=== PATIENT | female | born 1960 | race Caucasian/White ===

== ENCOUNTER 2016-05-06 15:09 | Inpatient (IN) | payer OTHER ==
[~2016-05-06] VITALS: Ht 157.5 cm; Wt 75.3 kg
--- NOTE | 2016-05-06 17:45 | NUR ---
Arrived on Unit Patient was a transfer from [facility], arrived via EMS is fair condition. Patient to start chemo tomorrow. Admit completed except medication reconciliation. Daughter has patient's med rec. A&Ox3. Patient reported 9/10 back/buttock pain. Patient has small blister like spots on buttocks. Turning patient from [id number]. Wound consult sent. Bruises on both arms from IV starts. Patient came to the floor with a double lumen PICC in right arm. Patient has open area under the stomach. Bilateral lower extremities pitting edema. Sudarshan Graves team at to notify hospitalist patient has arrived. Awaiting response. Call light and tray table within reach. Will continue to monitor patient hourly.
[2016-05-06 18:06] VITALS: BP 116/76; PULSE 114; RESP 20
[2016-05-06] MEDS ORDERED: Polyethylene Glycol (PEG) 17 Gm Powder PO PRN (22:00)
[2016-05-06 22:57] VITALS: BP 127/83; PULSE 109; RESP 18
[2016-05-06] MEDS: Ondansetron 2 mg/mL 2 mL Inj IVPUSH PRN (23:10)
[2016-05-06] MEDS: oxyCODONE-Acetamin 5-325 mg Tablet PO PRN (23:10)
[2016-05-07] MEDS: Insulin Human REGular 300 Unit/3 mL Inj SUBQ SCH ×4 (02:30→20:30)
--- NOTE | 2016-05-07 02:51 | PCM.HPMED ---
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 Hartmann following. She was admitted to [facility] on 05/02/2016 for hyperglycemia, possible pneumonia, acute exacerbation of CHF, and generalized weakness. Patient currently states that she is tired of being tired. She wants to get well and get home. She is having pain in her bottom and back. She currently has a headache that she rates at 5 out of 10, these occur occasionally for her. She is having consistent shortness of breath and central chest heaviness for a couple of days. She is feeling nauseous in reports vomiting daily. She also has back pain and pain in her tailbone. She also complains of being generally weak. Review of Systems: A comprehensive review of systems was conducted with the patient and found to be negative except as above in the History of Present Illness. Allergies Coded Allergies: No Known Allergies (Unverified Allergy, 02/19/11) Uncoded Allergies: Tape (Adverse Reaction, Intermediate, redness, maceration, 02/19/11) Home Medications Humulin 70/30 15 units subcutaneously daily with p.m. meal Humulin 70/30 30 units subcutaneously daily with breakfast Clotrimazole 10 mg troches 5 times daily for thrush Tylenol 1000 mg by mouth 3 times daily Metoprolol tartrate 50 mg by mouth twice a day Ferrous sulfate 325 mg by mouth daily Protonix 40 mg by mouth twice a day Plavix 75 mg by mouth daily Docusate sodium 100 mg by mouth when necessary constipation Atorvastatin 10 mg by mouth at bedtime Furosemide 40 mg by mouth daily Lisinopril 5 mg by mouth daily PMH 1. Small cell carcinoma of right lung 2. Ischemic cardiomyopathy 3. Coronary artery disease 4. Diabetes mellitus type II uncontrolled 5. Emphysema 6. History of MRSA infection in right leg 7. Peptic ulcer disease 8. Anemia 9. Pulmonary fibrosis 10. Metastatic disease to the liver 11. Atrial fibrillation 12. Congestive heart failure Surgical History 1. Appendectomy 2. CABG 3. Right lower extremity arterial stent 4. Small bowel obstruction with surgical intervention Family History Father with diabetes mellitus and passed at age 63 Mother with thyroid cancer past due to motor vehicle accident when patient was 10 years old. Social History Hx Alcohol Use: Yes (quit years ago) Hx Substance Use: No Hx Tobacco Use: Yes Smoking Status: Former Smoker (89-pulv-stym history) Years of Smokin Living Arrangement: with Family (daughter Elsa, son-in-law, and grandson at the [facility] due to patient's inability to climb stairs) Exam Vital Signs Vital Sign - Last Date Time Temp Pulse Resp B/P Pulse Ox O2 Delivery O2 Flow Rate FiO2 05/06/16 18:06 36.9 114 20 116/76 Nasal Cannula 2.00 96 Exam General: Sleepy, no acute distress, well-developed, well-nourished, appropriately interactive HEENT: Normocephalic, atraumatic. External ears without defect. Pupils equal, round, and reactive to light and accommodation. Anicteric sclerae, moist conjunctivae, and no lid lag. Tongue with white exudate. Oropharynx free of erythema and cobble stoning with moist mucosa. Neck: Supple with full range of motion. No jugular venous distension. No lymphadenopathy or thyromegaly. Cardiovascular: Regular rate and rhythm with no murmurs, rubs, or gallops appreciated Pulmonary: Mildly decreased breath sounds in the right upper lung field, otherwise clear to auscultation bilaterally with no crackles, wheezes, or rhonchi. Normal respiratory effort with no use of accessory muscles. Abdomen: Vertical midline scar with concavity. Mild irritation of skin on the inferior portion of that in folding area. Bowel tones present. Soft, nontender, nondistended. Extremities: Bilateral 2+ pitting edema in lower extremities. No clubbing, cyanosis, or lymphadenopathy appreciated. Skin: Multiple small ulcerations within superior portion of the intergluteal fold. Normal temperature, turgor, and texture; no rash, or subcutaneous nodules appreciated. Neurological: Cranial nerves grossly intact. Normal muscle tone, and bulk. Psychiatric: Normal mood and affect. Alert and oriented to person, place, and time. Lab and Diagnostics X-Rays, CTs and MRIs PROCEDURE: PE STUDY (CTA CHEST) INDICATIONS: 55 year-old female with metastatic small cell lung carcinoma, with hypoxia and shortness of breath. COMPARISON: [facility], CT, THORAX WITH CONTRAST, 04/15/2016, 9:49. FINDINGS: Image quality: Excellent. Pulmonary arteries: Pulmonary arteries are normal in size, and demonstrate no intraluminal filling defects to suggest central pulmonary embolism. Lungs and pleura: 4.5 x 4.3 cm medial right upper lobe mass is again noted, enveloping the right upper lobe pulmonary artery with mild extrinsic narrowing. Mass also causes greater than 85% extrinsic narrowing of the superior vena cava. Small dependent right pleural effusion is now present, along with right lower lobe compressive atelectasis. No pneumothorax. Central and peripheral airways are patent. Mediastinum: Heart size is normal, without pericardial effusion. Patient is status post coronary artery bypass grafting. Bulky precarinal adenopathy is unchanged. Thoracic aorta is normal in caliber and enhancement. Esophagus is normal in caliber, without hiatal hernia. Bones and chest wall: No suspicious bony lesions. Ribs and thoracic spine appear intact throughout. Thyroid gland is normal in size. No axillary or supraclavicular adenopathy. Abdomen: Visualized upper abdominal solid organs appear normal in the early arterial phase of enhancement. IMPRESSION: 1. No evidence for central pulmonary embolism. 2. Medial right upper lobe 4.5 cm mass again noted, with extrinsic mass effect on the superior vena cava and right upper lobe pulmonary artery. No current findings of faby superior vena cava syndrome. 3. Interval development of small basal right pleural effusion, as well as patchy right lower lobe compressive atelectasis. 4. Bulky precarinal mediastinal adenopathy as before. Dictated by: Bennie Hernandez M.D. on 05/02/2016 at 20:57 PROCEDURE: CHEST 1 VIEW IMPRESSION: Bulky right perihilar mass lesion as before, without acute cardiopulmonary disease. Dictated by: Bennie Hernandez M.D. on 05/02/2016 at 19:35 PROCEDURE: ABDOMEN WITH AND WITHOUT CONTR FINDINGS: Image quality: Multiple sequences are degraded by patient respiratory motion. Lung bases: There is trace basal right pleural effusion. Heart size is normal, status post median sternotomy. Solid organs: There is diffuse hepatomegaly, with innumerable hypoenhancing hepatic lesions in the right and left hepatic lobes. Gallbladder contains no gallstones or biliary sludge. Biliary system is non dilated. Pancreas is normal in morphology. No adrenal nodules. Both kidneys demonstrate normal size and enhancement, without hydronephrosis. Nodes and vessels: No retroperitoneal or mesenteric adenopathy by size criteria. Aorta and inferior vena cava are normal in size. Bowel and peritoneum: Unenhanced bowel loops are normal in caliber. There is trace free abdominal fluid. Bones and soft tissues: No ventral hernias. Bone marrow is normal in overall signal. IMPRESSION: 1. Findings consistent with innumerable widespread metastases throughout the liver, with resultant hepatomegaly. 2. Trace basal right pleural effusion, possibly malignant. Dictated by: Bennie Hernandez M.D. on 05/02/2016 at 19:45 PROCEDURE: BRAIN WITH AND WITHOUT CONTRAST CSF Spaces: Basal cisterns are patent. No extra-axial fluid collections. Ventricles are normal in size and shape. Brain: No midline shift. No intracranial bleeds or masses. No abnormal intracranial enhancement. There is mild periventricular and deep white matter chronic small vessel ischemic change. The brainstem appears normal. Diffusion-weighted images demonstrate no acute ischemic insults. No chronic ischemic insults. Normal intravascular flow voids are present. Skull and face: Calvarial marrow is normal in background signal. However, several small T1 hypointense marrow space occupying lesions are noted within the clivus. Orbits appear normal. Sinuses: Sinuses and mastoids appear clear. IMPRESSION: 1. No intracranial metastases identified. 2. Findings suspicious for several small bony metastases in the clivus. As such, consider further evaluation with whole-body bone scan. 3. Mild periventricular and deep white matter chronic small vessel ischemic change. Dictated by: Bennie Hernandez M.D. 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 Hartmann following. 1. Small cell right upper lobe lung cancer, present on admission, acute - Management per Dr. Hartmann oncology - Post chemotherapy: Aloxi 0.25mg IV x 1 dose, Emend 150mg IV x 1 dose, Cisplatin 130mg x 1 dose, Etopside 175mg daily x 3 doses - Oxygen as needed, patient currently on 2 L nasal cannula - Pain control with Percocet 2. Generalized weakness and malaise, present on admission, ongoing - Likely secondary to 1 and 3. - Continue supportive care, monitor I's and O's for fluid resuscitation needs 3. Metastatic disease of the liver, present on admission, ongoing - Transaminases elevated per documentation from [facility]. - CMP with morning labs 4. Type II diabetes mellitus, present on admission, chronic, active - Patient recently started on Humulin, Januvia, fenofibrate, glimepiride, and Lantus discontinued - Humulin 70/30 15 units subcutaneously with p.m. meal, 30 units subcutaneously with breakfast, low-dose correctional scale - We will monitor blood sugars 5. Acute exacerbation of congestive heart failure, present on admission, acute on chronic - 40 mg Lasix daily 6. Thrush, present on admission, acute - Continue clotrimazole 10 mg troches 5 times daily Chronic, stable problems: Coronary artery disease - Continue metoprolol tartrate 50 mg twice a day, lisinopril 5 mg daily, Plavix 75 mg daily, and furosemide 40 mg by mouth daily Constipation - Continue docusate sodium Hyperlipidemia - Continue atorvastatin 10 mg daily GERD - Continue Protonix 40 mg by mouth twice a day Anemia Ferrous sulfate 325 mg daily When necessary antiemetic, when necessary bowel, Tylenol when necessary DVT prophylaxis with subcutaneous Lovenox. Patient is admitted under inpatient status with expected length of stay greater than 2 midnights due to severity of presenting symptoms, risk of adverse event, and complexity of treatment plan. Pain Evaluation: Adequate Pain Control GI Prophylaxis: Not indicated VTE Prophylaxis: Sub-Q Enoxaparin VTE Mechanical Devices: Intermittant Pneumatic CD Resuscitation Status: CPR: Attempt Resuscitation Attending Statement The patient was seen and examined together with Dr. Pelaez on 05/06 and I agree with the history, exam and plan as outlined in the note above. Silvana Pelaez DO May 06, 2016 20:52 Eric Yeung MD May 07, 2016 03:16
--- NOTE | 2016-05-07 03:25 | NUR ---
ACTIVITY/PAIN/NAUSEA: During assessment pt. states has nausea and pain, rated her pain at 9/10 waiting for the doctors to place pain medication orders. Later on given 1 Percocet and 600 mg of Ibuprofen. Incontinent care done. Pt. incontinent of urine. Placed on a P500 bed. Repositioned from side to side every 2 hr and more often. Medicated with Zofran 8 mg of c/o nausea. No emesis. Pt. very weak, alert and responsive. Refused food. Only taking po Sprite. Nausea resolved.
[2016-05-07 04:59] VITALS: BP_SYST 143; BP_SYST 43; BP_DIAS 88; PULSE 84; RESP 18
--- NOTE | 2016-05-07 06:31 | NUR ---
SHAWNA: Michel catheter removed at 0615 this am. Addendum: 05/07/16 at 0634 by KARINA MAS RN (NELLY) ADDENDUM: This note was written mistakenly on wrong pt. [facility] and not for room [facility] Mrs. Traore
[2016-05-07 07:02] LABS: BASOPHILS % (AUTO) 0.2 % (0-3); EOSINOPHILS % (AUTO) 0 % (0-5); MONOCYTES % (AUTO) 3.5 % (4-12); Mean Corpuscular Hemoglobin 30.9 pg (27.0-35.0); Mean Corpuscular Volume 97.1 fL (81-100); NEUTROPHILS % (AUTO) 92.5 % (40-74); Platelet Count 101 bil/L (150-400)
[2016-05-07] MEDS ORDERED: Insulin Human NPH-Reg 70-30 100 Unit/mL 3 mL Pen SUBQ SCH ×2 (08:00→17:30)
--- NOTE | 2016-05-07 08:13 | PCM.PNMED ---
Subjective Date of Service May 07, 2016 Subjective Patient is laying in bed, says she is mildly short of breath. She is admitted overnight from the [facility] as a transfer for chemo induction by Dr. Bass. The patient is transferred from [facility], where she was underwent her 4th hospitalization since the beginning of April. This hospitalization was from May 03 through May 06, at which point she was transferred over to [facility]. She was admitted on the 4th for progressive weakness and being unable to ambulate at home. She also had a glucose of 550 the day prior to admission with decreased oral intake. During the recent hospitalization she was treated for diabetes out of control, postobstructive pneumonia, exacerbation of chronic diastolic heart failure, underlying lung disease with pulmonary hypertension and pulmonary fibrosis, and stable coronary artery disease, as well as sacral decubitus ulcers. Overall her condition was very poor at the time of transfer to [facility]. Exam Vital Signs Vital Sign - Last Date Time Temp Pulse Resp B/P Pulse Ox O2 Delivery O2 Flow Rate FiO2 05/07/16 04:59 36.8 84 18 143/88 Nasal Cannula 2.00 98 Intake and Output 05/06/16 05/06/16 05/07/16 Cumulative From/Thru 15:00 23:00 07:00 05/06/16 18:10 - 05/07/16 05:51 Intake Total 200 ml 200 ml Output Total 450 ml 450 ml Balance -250 ml -250 ml Intake Oral 200 ml 200 ml IV Total 0 ml 0 ml Output Urine Total 450 ml 450 ml # Bowel Movements 0 0 Exam General: Laying in bed. Appears dishevelled HEENT: NCAT Heart: Irregular, hyperdynamic sounds Lungs: Diminished over the RLL., negative for wheezing Abdomen: Soft, mild tenderness in LLQ, normal bowel sounds Neuro: No focal deficits Psych: Negative for anxiety, affect resigned IVs and Medications Medications Reviewed: Medications were reviewed in detail Lab and Diagnostics Result Diagram: 05/07/16 0610 05/07/16 0610 X-Rays, CTs and MRIs PROCEDURE: PE STUDY (CTA CHEST) INDICATIONS: 55 year-old female with metastatic small cell lung carcinoma, with hypoxia and shortness of breath. COMPARISON: [facility], CT, THORAX WITH CONTRAST, 04/15/2016, 9:49. FINDINGS: Image quality: Excellent. Pulmonary arteries: Pulmonary arteries are normal in size, and demonstrate no intraluminal filling defects to suggest central pulmonary embolism. Lungs and pleura: 4.5 x 4.3 cm medial right upper lobe mass is again noted, enveloping the right upper lobe pulmonary artery with mild extrinsic narrowing. Mass also causes greater than 85% extrinsic narrowing of the superior vena cava. Small dependent right pleural effusion is now present, along with right lower lobe compressive atelectasis. No pneumothorax. Central and peripheral airways are patent. Mediastinum: Heart size is normal, without pericardial effusion. Patient is status post coronary artery bypass grafting. Bulky precarinal adenopathy is unchanged. Thoracic aorta is normal in caliber and enhancement. Esophagus is normal in caliber, without hiatal hernia. Bones and chest wall: No suspicious bony lesions. Ribs and thoracic spine appear intact throughout. Thyroid gland is normal in size. No axillary or supraclavicular adenopathy. Abdomen: Visualized upper abdominal solid organs appear normal in the early arterial phase of enhancement. IMPRESSION: 1. No evidence for central pulmonary embolism. 2. Medial right upper lobe 4.5 cm mass again noted, with extrinsic mass effect on the superior vena cava and right upper lobe pulmonary artery. No current findings of faby superior vena cava syndrome. 3. Interval development of small basal right pleural effusion, as well as patchy right lower lobe compressive atelectasis. 4. Bulky precarinal mediastinal adenopathy as before. Dictated by: Bennie Hernandez M.D. on 05/02/2016 at 20:57 PROCEDURE: CHEST 1 VIEW IMPRESSION: Bulky right perihilar mass lesion as before, without acute cardiopulmonary disease. Dictated by: Bennie Hernandez M.D. on 05/02/2016 at 19:35 PROCEDURE: ABDOMEN WITH AND WITHOUT CONTR FINDINGS: Image quality: Multiple sequences are degraded by patient respiratory motion. Lung bases: There is trace basal right pleural effusion. Heart size is normal, status post median sternotomy. Solid organs: There is diffuse hepatomegaly, with innumerable hypoenhancing hepatic lesions in the right and left hepatic lobes. Gallbladder contains no gallstones or biliary sludge. Biliary system is non dilated. Pancreas is normal in morphology. No adrenal nodules. Both kidneys demonstrate normal size and enhancement, without hydronephrosis. Nodes and vessels: No retroperitoneal or mesenteric adenopathy by size criteria. Aorta and inferior vena cava are normal in size. Bowel and peritoneum: Unenhanced bowel loops are normal in caliber. There is trace free abdominal fluid. Bones and soft tissues: No ventral hernias. Bone marrow is normal in overall signal. IMPRESSION: 1. Findings consistent with innumerable widespread metastases throughout the liver, with resultant hepatomegaly. 2. Trace basal right pleural effusion, possibly malignant. Dictated by: Bennie Hernandez M.D. on 05/02/2016 at 19:45 PROCEDURE: BRAIN WITH AND WITHOUT CONTRAST CSF Spaces: Basal cisterns are patent. No extra-axial fluid collections. Ventricles are normal in size and shape. Brain: No midline shift. No intracranial bleeds or masses. No abnormal intracranial enhancement. There is mild periventricular and deep white matter chronic small vessel ischemic change. The brainstem appears normal. Diffusion-weighted images demonstrate no acute ischemic insults. No chronic ischemic insults. Normal intravascular flow voids are present. Skull and face: Calvarial marrow is normal in background signal. However, several small T1 hypointense marrow space occupying lesions are noted within the clivus. Orbits appear normal. Sinuses: Sinuses and mastoids appear clear. IMPRESSION: 1. No intracranial metastases identified. 2. Findings suspicious for several small bony metastases in the clivus. As such, consider further evaluation with whole-body bone scan. 3. Mild periventricular and deep white matter chronic small vessel ischemic change. Dictated by: Bennie Hernandez M.D. 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 Hartmann following. 1. Small cell right upper lobe lung cancer, present on admission, acute - Management per Dr. Hartmann oncology - Post chemotherapy: Aloxi 0.25mg IV x 1 dose, Emend 150mg IV x 1 dose, Cisplatin 130mg x 1 dose, Etopside 175mg daily x 3 doses - Oxygen as needed, patient currently on 2 L nasal cannula - Pain control with Percocet - Requested records from the OSH and records were reviewed, it appears she was there for Hyperglycemia. No cardiac work up is available - [facility] called due to suspicion for a pneumothorax and a Left decubitus was ordered per their request. The read on that x-ray ruled out pneumothorax. 2. Generalized weakness and malaise, present on admission, ongoing - Likely secondary to 1 and 3. - Continue supportive care, monitor I's and O's for fluid resuscitation needs 3. Metastatic disease of the liver, present on admission, ongoing - Transaminases elevated per documentation from [facility]. - CMP with morning labs 4. Type II diabetes mellitus, present on admission, chronic, active -- A1C 6.2 from records in last december - Patient recently started on Humulin, Januvia, fenofibrate, glimepiride, and Lantus discontinued - Humulin 70/30 15 units subcutaneously with p.m. meal, 30 units subcutaneously with breakfast, low-dose correctional scale: Changed this to 30 U basal and moderate scale SSI - We will monitor blood sugars 5. Acute exacerbation of congestive heart failure, present on admission, acute on chronic - 40 mg Lasix daily 6. Thrush, present on admission, acute - Continue clotrimazole 10 mg troches 5 times daily 7. Hypokalemia: Potassium 20 mg PO QD due to lasix home medication Chronic, stable problems: Coronary artery disease - Continue metoprolol tartrate 50 mg twice a day, lisinopril 5 mg daily, Plavix 75 mg daily, and furosemide 40 mg by mouth daily Constipation - Continue docusate sodium Hyperlipidemia - Continue atorvastatin 10 mg daily GERD - Continue Protonix 40 mg by mouth twice a day Anemia Ferrous sulfate 325 mg daily When necessary antiemetic, when necessary bowel, Tylenol when necessary DVT prophylaxis with subcutaneous Lovenox. Patient is admitted under inpatient status with expected length of stay greater than 2 midnights due to severity of presenting symptoms, risk of adverse event, and complexity of treatment plan. GI Prophylaxis: Not indicated VTE Prophylaxis: Sub-Q Enoxaparin VTE Mechanical Devices: Intermittant Pneumatic CD Resuscitation Status: CPR: Attempt Resuscitation Susy Obrien DO May 07, 2016 08:13
[2016-05-07] MEDS: Pantoprazole 40 mg ER24 Tablet PO SCH ×2 (08:42→16:45)
[2016-05-07] MEDS: Ondansetron 2 mg/mL 2 mL Inj IVPUSH PRN ×2 (08:49→16:45)
[2016-05-07] MEDS: Clotrimazole Troche 10 mg Tablet MT SCH ×5 (09:04→23:08)
[2016-05-07] MEDS ORDERED: INSU100V7 SUBQ (09:52)
[2016-05-07] MEDS ORDERED: CLOP75TA28 PO (09:52)
[2016-05-07] MEDS ORDERED: CLOT21CR7 VAGINAL (09:52)
[2016-05-07] MEDS ORDERED: FENO145T19 PO (09:52)
[2016-05-07] MEDS ORDERED: POTA-62 PO (09:52)
[2016-05-07] MEDS ORDERED: METO25TA6 PO (09:52)
[2016-05-07] MEDS ORDERED: LEVO250T45 PO (09:52)
[2016-05-07] MEDS ORDERED: OXYC1TAB24 PO (09:52)
[2016-05-07] MEDS ORDERED: ATOR20TA PO (09:52)
[2016-05-07] MEDS ORDERED: FURO40TA4 PO (09:52)
[2016-05-07] MEDS ORDERED: NYST15PO3 TP (09:52)
[2016-05-07] MEDS ORDERED: SITA100T12 PO (09:53)
[2016-05-07] MEDS ORDERED: PANT40TA3 PO (09:53)
[2016-05-07] MEDS ORDERED: Potassium Chloride 20 mEq SR Tablet PO SCH (10:30)
[2016-05-07] MEDS ORDERED: Alteplase (Cathflo) 1 mg/mL 2 mL Inj IV PRN (10:55)
[2016-05-07] MEDS: oxyCODONE-Acetamin 5-325 mg Tablet PO PRN ×2 (11:02→16:44)
[2016-05-07] MEDS ORDERED: Sodium Chloride LOK Flush 10 mL Syringe IVFLUSH PRN ×2 (11:55)
[2016-05-07] MEDS: Alum-Mag Hydrox-Simeth 30 mL Suspension PO PRN (11:56)
[2016-05-07] MEDS ORDERED: Palonosetron 0.05 mg/mL 5 mL Inj IV ONE (12:30)
[2016-05-07] MEDS ORDERED: SODIUM CHLORIDE 0.9% IV ONE (12:30)
[2016-05-07] MEDS ORDERED: 0.9% Sodium Chloride 1,000 ML IV ONE (12:30)
[2016-05-07] MEDS ORDERED: [UNRECOGNIZED DRUG - OTHER] IV ONE (12:30)
[2016-05-07] MEDS: Dexamethasone 10 mg/mL Inj IV SCH (12:50)
[2016-05-07] MEDS ORDERED: POTASSIUM CHLORIDE IV ONE ×5 (13:00)
[2016-05-07] MEDS ORDERED: SODIUM CHLORIDE 0.9% IV SCH (13:00)
[2016-05-07] MEDS ORDERED: MAGNESIUM SULFATE IV ONE ×5 (13:00)
[2016-05-07] MEDS ORDERED: ETOPOSIDE IV SCH (13:00)
[2016-05-07] MEDS ORDERED: [UNRECOGNIZED DRUG - OTHER] IV ONE ×5 (13:00)
[2016-05-07] MEDS ORDERED: CISPLATIN IV ONE ×5 (13:00)
--- NOTE | 2016-05-07 13:48 | DRSVH ---
PROCEDURE: X-RAY CHEST ONE VIEW ([id number]) INDICATIONS: Catheter tip placement TECHNIQUE: One view of the chest was acquired. COMPARISON: [facility], CR, CHEST 1VW (PORTABLE), 08/19/2013, 21:47. [facility], CR , CHEST 1 VIEW, 05/02/2016, 19:26. FINDINGS: Surgical changes and devices: Post median sternotomy with multiple fractured sternal wires. Right PI CC present with tip projecting over the mid right subclavian. Lungs and pleura: Right pleural effusion is present and there appears to be an air-fluid level and hy dropneumothorax cannot be excluded. Large right upper lobe mass redemonstrated. Scarring within the left lung base. Mediastinum: Mediastinal contours appear normal. Heart size is normal. Bones and chest wall: No suspicious bony lesions. Overlying soft tissues appear unremarkable. IMPRESSION: 1. Right pleural effusion and apparent air fluid level suggesting a right hydropneumothorax. Recomme nd clinical correlation and left lateral decubitus chest radiograph for confirmation. 2. Large right upper lobe mass redemonstrated. 3. Right PICC projected over the level of the mid subclavian. Dictated by: Hernando SANDS Interpreted: Shannon Watkins MD on 05/07/2016 at 13:44 Transcribed by: GAVIN on 05/07/2016 at 13:48 Approved by: Shannon Watkins M.D. on 05/07/2016 at 16:53
[2016-05-07 14:21] VITALS: BP 154/75; PULSE 79; RESP 19; O2SAT 94
--- NOTE | 2016-05-07 14:32 | DRSVH ---
PROCEDURE: X-RAY LEFT DECUBITUS CHEST ([id number]) INDICATIONS: concern for pneumothorax TECHNIQUE: One view of the chest was acquired. COMPARISON: [facility], CR, XR CHEST 1VW, 05/07/2016, 11:53. FINDINGS: Surgical changes and devices: Left lateral decubitus chest radiograph demonstrating no right pneumoth orax. IMPRESSION: No right hydropneumothorax. Dictated by: Hernando Luevano RRA Interpreted: Shital Rodríguez MD on 05/07/2016 at 14:31 Transcribed by: DILAN on 05/07/2016 at 14:32 Approved by: Shital Rodríguez MD, PhD on 05/07/2016 at 17:24
--- NOTE | 2016-05-07 14:53 | NUR ---
Wound Care Pressure ulcer protocol received, pt seen at bedside with nursing. 55 yo female with cancer diagnosis, lung with metastasis. Pt is easily aroused lying in a P500 bed. Skin is assessed and she is noted to have 3 lesions in the area just superior to her anus, I do not think these are pressure related and may be in fact be due to yeast, the three lesions are 3 cm x 0.5 cm at midline and 2 others to the right of the central lesion that are approx 1.2 cm in diameter. Recommended application of fungal ointment to these areas by nursing. Frequent turning is also recommended. There is a small abrasion under the nasal cannula tubing at her right ear recommend application of calmoseptine to this area.
[2016-05-07 15:00] VITALS: BP 144/76; PULSE 74; RESP 16; O2SAT 94
--- NOTE | 2016-05-07 15:29 | NUR ---
Chemo Consent signed, two nurse check w/ Marlena Davenport RN. Blood return present. Chemo started at 1509. Oncologist aware of lab values, wishes to proceed. All premeds given. VSS prior to and 15 min into infusion.
[2016-05-07 15:30] VITALS: BP 145/75; PULSE 80; RESP 18; O2SAT 92
[2016-05-07] MEDS ORDERED: 0.9% Sodium Chloride 250 ML ONE (16:53)
--- NOTE | 2016-05-07 17:04 | NUR ---
Social Work Assessment: D&A: Reviewed chart. Pt. is a 55yr old female transferred from [facility] for chemotherapy. Pt. known to this S[employer]DER from [facility]. Pt. currently resides with daughter/Elsa(not biological) in [facility] in [place]. Elsa is gate watch at [facility] and has young son. Pt. recently began getting sick (approximately 1 month ago). Prior to being sick pt. employed at [employer] and was completely "I" in all ADL's. Pt. hospitalized last week at [facility] and it was determined that pt. has lung CA. Pt. had appointment with Dr. Hartmann last week and was planning on starting chemo as outpt. Unfortunately pt. got sicker with n/v and weakness. Pt. admitted to [facility] and then transferred to [facility] to start chemo during hospitalization. At this time d/c needs unknown. Previous d/c plan was for pt. to go to [facility] when stable for rehab. Pt.'s health plan had authorized SNF. Updated medical team in AM rounds. Dr. Hartmann managing the chemotherapy. Pt. might be excellent candidate for palliative and they are aware. P: Pending pt.'s progress with chemo treatment. If SNF needed will need to confirm with pt. that first choice is still [facility] and obtain new authorization from provider. FERNANDO Maldonado Addendum: 05/07/16 at 1714 by EJ SOLIMAN Amended: Links added.
--- NOTE | 2016-05-07 17:18 | NUR ---
Chemo Start Chemo checked by 2 nurses. Blood return present, consent signed. Oncologist aware of lab values. Per MD proceed with Chemo scheduled for today. Care continues
[2016-05-07] MEDS ORDERED: Glucose 40% Oral Gel 15 Gm Tube PO PRN (18:10)
--- NOTE | 2016-05-07 18:12 | NUR ---
Appetite Pt has refused all meals today. States she doesn't feel hungry and is nauseous majority of shift. Pt is drinking fluids and voiding.
[2016-05-07] MEDS ORDERED: Insulin GLARgine 100 Unit/mL Syringe SUBQ SCH ×2 (18:20→21:00)
--- NOTE | 2016-05-07 18:41 | HP ---
[address] [address] HISTORY AND PHYSICAL PATIENT: CARLEEN SHEIKH : 1960 MR#: [id number] ADMIT: 05/06/2016 JOB ID: [id number] DATE OF SERVICE: 05/07/2016 REASON FOR ADMISSION: This is a transfer from [facility] for the purpose of receiving systemic chemotherapy for rapidly advancing small cell lung cancer involving the right suprahilar area and mediastinum, and with extensive disease in the liver. DIAGNOSES: 1. 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 2. Progressive debilitation related to underlying comorbidities of type 2 diabetes, history of atrial fibrillation, congestive heart failure with recent non-ST elevation myocardial infarction; the patient is extremely debilitated now. 3. The patient has had multiple recent admissions as described below in the history of present illness. HISTORY OF PRESENT ILLNESS: The patient is transferred from [facility], where she was underwent her 4th hospitalization since the beginning of April. This hospitalization was from May 03 through May 06, at which point she was transferred over to [facility]. She was admitted on the 4th for progressive weakness and being unable to ambulate at home. She also had a glucose of 550 the day prior to admission with decreased oral intake. During the recent hospitalization she was treated for diabetes out of control, postobstructive pneumonia, exacerbation of chronic diastolic heart failure, underlying lung disease with pulmonary hypertension and pulmonary fibrosis, and stable coronary artery disease, as well as sacral decubitus ulcers. Overall her condition was very poor at the time of transfer to [facility]. I discussed the case with Dr. Alexandra, indicating that we are all in agreement that her recent decline is mainly due to the progression of small-cell lung cancer superimposed on underlying comorbidities which were up until recently relatively stable (see admission list below). MEDICATIONS: On transfer to [facility]: 1. Januvia or sitagliptin 100 mg daily. 2. Fenofibrate 160 mg daily. 3. Glimepiride 2 mg twice daily with meals. 4. Oxycodone/acetaminophen 5/325 q.6 h. p.r.n. back pain. 5. Insulin glargine 10 mL or Lantus 100 units/mL subcutaneously at bedtime. 6. Lisinopril 5 mg every day. 7. Furosemide 40 mg every day. 8. Atorvastatin 10 mg at bedtime. 9. Docusate 100 mg for constipation. 10. Clopidogrel 75 mg daily. 11. Pantoprazole 40 mg twice daily. 12. Ferrous sulfate 325 mg daily. 13. Metoprolol 50 mg twice daily. 14. Acetaminophen 1000 mg three times daily. 15. Clotrimazole 10 mg orally five times daily for a chante for thrush. 16. She was also initiated on insulin human isophane 100 units/mL, 30 units subcutaneously daily with breakfast, and 15 units subcutaneous every day with p.m. meal. 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 On April 09 she was hospitalized at [facility] for community-acquired pneumonia, acute on chronic CHF, diabetes, and a right hilar mass was discovered at that point in time. Workup was to be continued as an outpatient. On April 12 she was readmitted with acute bacterial community-acquired pneumonia, persistent hypokalemia, and diabetes type 2 with ischemic cardiomyopathy. On April 28 she was admitted with acute paroxysmal atrial fibrillation with RVR and acute non-ST elevation UT secondary to demand ischemia, chronic heart failure with preserved LVEF, severe hypopotassemia due to IV diuresis, and type 2 diabetes. She was seen by myself on April 30, 2016. At that point we knew that she had 3.7 x 3.77 medial right upper lobe mass with compression of the superior vena cava and large mediastinal and right hilar adenopathy. CT-guided biopsy was performed on April 15, 2016 showing a small-cell neuroendocrine carcinoma which was pankeratin or GODFREY positive, synaptophysin positive, and chromogranin positive. A brain MRI was negative for metastases on April 28, 2016. It was suspected that she had liver metastases, although on the CT of the thorax the liver appeared normal. The liver enzymes were elevated and an echo was suspicious for metastases. Ultimately a hepatic protocol MRI was performed on May 02, 2016 showing extensive liver metastases on May 02, a PE study was performed as well due to the patient's debilitation and dyspnea and found negative for PE, with the development of a small basilar right pleural effusion as well as compressive atelectasis in the right lower lobe. After careful discussion of the pros and cons, and presentation to the Tumor Board, the patient's condition was deemed to be irreversible without some form of therapy for her cancer and although her performance status was poor there was a consensus after discussion with Dr. Alexandra, Dr. Jeong of the hospitalist service, and the Tumor Board that her only chance for even palliation would be to receive systemic chemotherapy. She was transferred to [facility] for this purpose. PAST MEDICAL HISTORY: 1. Prior history of lep-xblvqvq-pichqufjf diabetes, now insulin dependent. The patient's glucose control has improved from the 400s down to the 100s. 2. At least 8 surgeries starting at age 14 for bowel obstructions originally related to an appendectomy. 3. . AB zero. 4. History of four-way bypass. The patient states she had previously had stents. 5. History of bleeding ulcer. 6. History of atrial fibrillation. 7. Cardiomyopathy. 8. Prior history of MRSA right leg related to harvest of vessels for bypass. 9. Pulmonary fibrosis. 10. Appendectomy. 11. Non-ST elevation UT recently. 12. Multiple wound care visits for right-sided foot ulcer. 13. Four-way bypass in July 2013. 14. MRSA infection related to harvest of veins. SOCIAL HISTORY: The patient lives by herself. Her 15 years ago in a motor vehicle accident. She comes with her daughter, Elsa. 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 She quit drinking 23-1/2 years ago and quit smoking three years ago with a 32 pack-year history of smoking. ALLERGIES: IODINE, BROCCOLI, GLYBURIDE, METFORMIN, POLLEN TREE IN PARTICULAR, AND REYNOLDS PEPPER. REVIEW OF SYSTEMS: Although she is very weak, she is communicative. She has had worsening chronic back pain and extreme muscle body weakness. Right now she is confined to bed. Previously, when I saw her last week, she could get around in a wheelchair, but has no ability to even help herself to the bathroom now. Head and neck: No headaches, visual changes, syncope, stroke. No oral or oropharyngeal lesions. However, she does have thrush and has an odd taste in her mouth because of this. Respiratory: No cough or dyspnea, but she is really not exercising at all to really test that. Cardiac: She has occasional pressure-like chest pain. No palpitations. GI: Appetite is extremely poor. No melena or hematochezia. : No dysuria, hematuria, or other UTIs. Skin: No rashes or pruritus. Neurological: No stroke seizure or loss of consciousness. PHYSICAL EXAMINATION: She is lying in bed, very weak, but responsive. She is able to roll onto her back or her side when asked to do so. She knows the year, is not sure of the month, and knows she is in [place]. Her vital signs show a temp of 36.8, pulse 84, respiratory rate 18, blood pressure 143/88, pulse ox 98% on 2 L although she is not using nasal O2 at this time. Her height is 157.48 cm, weight 72.4 kg, BSA 1.80 m2, BMI 29.2 kg/m2. General: She looks unwell and extremely weak, but is communicative. Head and neck: She has moderate alopecia. The patient states this has been going on for a number of years. Pupils equally round and reactive. No obvious icterus, although we do know that her bilirubin is elevated. Oral and oropharyngeal mucosa shows some mild thrush. Teeth: Partially edentulous. Neck and supraclavicular areas without adenopathy or masses. There is no facial puffiness of JVD suggestive of SVC syndrome. Chest: There are scattered inspiratory and expiratory wheezes and rhonchi bilaterally. Cardiac: Rhythm is regular, without murmur or peripheral edema. Abdomen: Soft, nontender. No masses or organomegaly. LABORATORY VALUES: The white count is 11.9 with 92.5% neutrophils, hemoglobin 10.8, hematocrit 33.9, platelets 101. BUN 27, creatinine 1.10. Sodium 142, potassium 3.3, chloride 94, CO2 of 33, glucose 103. Albumin is 2.9. Bilirubin is 3.2, AST 380, ALT 241. Alkaline phosphatase pending. ASSESSMENT AND RECOMMENDATIONS: 1. SMALL CELL LUNG CANCER, extensive stage, with liver metastases. A PET-CT scan was not performed due to blood glucose but she sufficient evidence of metastatic disease to treat her with systemic chemotherapy. Treatment with radiation therapy is not indicated at this time. Given the bulk of disease, she should be on allopurinol and IV hydration as well. The dose of chemotherapy would be cisplatin 75 mg/m2 day one and etoposide 100 mg/m2 days one, two, and three. In view of her elevated bilirubin, one could reduce the dose of etoposide; however, this is her one chance to achieve a response to therapy and I think we need to be very aggressive about going through with this without compromising her treatment. If we were to administer decreased doses and not be able to assess her response, we would not know whether she has chemotherapy sensitive disease or not and therefore I recommend we proceed forward with full doses. She will be treated with Emend (fosaprepitant) for coverage for nausea and after the 3rd day of etoposide, 24 hours later, she should receive a Neulasta skin device to protect her from severe cytopenias. She will have to be followed very closely with a followup visit with myself or Dr. Sewell next Thursday or thursday respectively on the or the . 2. Multiple other comorbidities. Dr. Heaton and Dr. Obrien have kindly agreed to take on the care regarding her diabetes and her cardiac disease, as well as her pulmonary problems, and with careful management I think we can get her through this course of chemotherapy. 3. Code status. The patient has agreed that she should be DNAR; that is no CPR or intubation, however she would like all other medical interventions including all types of nutritional intervention, antibiotics, diagnostic procedures, oxygen, and any other procedure short of CPR that would be necessary to manage her case. Will follow patient on a daily basis. 4. Chemotherapy counselling and POLST completed. MTDD
[2016-05-07 20:05] VITALS: BP 113/78; PULSE 81; RESP 16; O2SAT 96
[2016-05-07] MEDS ORDERED: Insulin GLARgine 100 Unit/mL Syringe SUBQ ONE (23:35)
--- NOTE | 2016-05-08 00:54 | PCM.PNMED ---
Subjective Date of Service May 08, 2016 Subjective Nurse called concerning patient receiving Lantus 30 units tonight. BG had been 100-110 range. Plan to decrease dose to Lantus 10 units HS. Patient may not eat as much due to chemotherapy and 10 units is a good starting point Eric Yeung MD May 08, 2016 00:54
[2016-05-08] MEDS: Insulin GLARgine 100 Unit/mL Syringe SUBQ SCH ×2 (01:28→20:40)
--- NOTE | 2016-05-08 01:52 | NUR ---
ACTIVITY/DIET: Pt. resting in bed, repositioned from side to side with 2 person, pt. has skin issues. Made no attempts to get oob. Pt. states she is too tired and has no energy to move. Offered snacks, declined. offered chicken broth, agreed to take but took only a few sips. Offered fruit Popcicles per her choice, agreed to take one. Taking a few bites of fruit roberts popcicle. on going care.
[2016-05-08] MEDS: Insulin Human REGular 300 Unit/3 mL Inj SUBQ SCH ×4 (04:37→20:30)
[2016-05-08] MEDS: oxyCODONE-Acetamin 5-325 mg Tablet PO PRN ×3 (04:42→20:41)
[2016-05-08] MEDS: Clotrimazole Troche 10 mg Tablet MT SCH ×5 (04:43→23:08)
[2016-05-08 05:00] VITALS: BP 150/84; PULSE 82; RESP 20; O2SAT 95
[2016-05-08] MEDS: Ondansetron 2 mg/mL 2 mL Inj IVPUSH PRN (05:16)
[2016-05-08] MEDS: Pantoprazole 40 mg ER24 Tablet PO SCH ×2 (06:51→16:46)
[2016-05-08 07:31] LABS: BASOPHILS % (AUTO) 0 % (0-3); EOSINOPHILS % (AUTO) 0 % (0-5); MONOCYTES % (AUTO) 2.6 % (4-12); Mean Corpuscular Hemoglobin 30.8 pg (27.0-35.0); NEUTROPHILS % (AUTO) 94.8 % (40-74); Platelet Count 95 bil/L (150-400)
[2016-05-08 08:34] VITALS: BP 147/86; PULSE 85
[2016-05-08] MEDS: LORazepam 0.5 mg Tablet PO PRN (11:02)
[2016-05-08 13:00] VITALS: BP 161/80; PULSE 74; RESP 15; O2SAT 92
[2016-05-08] MEDS ORDERED: Potassium Chloride 20 mEq SR Tablet PO ONE (13:00)
--- NOTE | 2016-05-08 13:06 | PCM.PNMED ---
Subjective Date of Service May 08, 2016 Subjective Patient is undergoing round 2 of chemo, total 3 days planned. She is too weak to walk, says R leg is weaker. She has 2L of oxygen, coughing a bit. Echo from OSH showed CAD but not CHF... Her medications for CAD are optimized. EKG ordered for afib... Just got diagnosed in Apr per Marioet. Exam Vital Signs Vital Sign - Last Date Time Temp Pulse Resp B/P Pulse Ox O2 Delivery O2 Flow Rate FiO2 05/08/16 13:00 36.1 74 15 161/80 92 Nasal Cannula 2.00 05/07/16 04:59 98 Intake and Output 05/07/16 05/07/16 05/08/16 Cumulative From/Thru 15:00 23:00 07:00 05/06/16 18:10 - 05/08/16 05:41 Intake Total 2122 ml 274 ml 2596 ml Output Total 300 ml 550 ml 1300 ml Balance 1822 ml -276 ml 1296 ml Intake Oral 0 ml 274 ml 474 ml IV Total 2122 ml 2122 ml Output Urine Total 300 ml 550 ml 1300 ml # Bowel Movements 0 0 Exam Gen.: Pale, responding well, laying in bed lateral decubitus position Neck: Negative for JVD Heart: Irregular, no audible murmurs Lungs: Patient is receiving chemotherapy making it difficult to appreciate lung sounds over the right side Abdomen soft, normal bowel sounds Extremities negative for edema Vascular one out of 4 dorsalis pedis MSK: Decreased strength in right lower extremity Lab and Diagnostics Result Diagram: 05/08/16 0700 05/08/16 0700 X-Rays, CTs and MRIs PROCEDURE: PE STUDY (CTA CHEST) INDICATIONS: 55 year-old female with metastatic small cell lung carcinoma, with hypoxia and shortness of breath. COMPARISON: [facility], CT, THORAX WITH CONTRAST, 04/15/2016, 9:49. FINDINGS: Image quality: Excellent. Pulmonary arteries: Pulmonary arteries are normal in size, and demonstrate no intraluminal filling defects to suggest central pulmonary embolism. Lungs and pleura: 4.5 x 4.3 cm medial right upper lobe mass is again noted, enveloping the right upper lobe pulmonary artery with mild extrinsic narrowing. Mass also causes greater than 85% extrinsic narrowing of the superior vena cava. Small dependent right pleural effusion is now present, along with right lower lobe compressive atelectasis. No pneumothorax. Central and peripheral airways are patent. Mediastinum: Heart size is normal, without pericardial effusion. Patient is status post coronary artery bypass grafting. Bulky precarinal adenopathy is unchanged. Thoracic aorta is normal in caliber and enhancement. Esophagus is normal in caliber, without hiatal hernia. Bones and chest wall: No suspicious bony lesions. Ribs and thoracic spine appear intact throughout. Thyroid gland is normal in size. No axillary or supraclavicular adenopathy. Abdomen: Visualized upper abdominal solid organs appear normal in the early arterial phase of enhancement. IMPRESSION: 1. No evidence for central pulmonary embolism. 2. Medial right upper lobe 4.5 cm mass again noted, with extrinsic mass effect on the superior vena cava and right upper lobe pulmonary artery. No current findings of faby superior vena cava syndrome. 3. Interval development of small basal right pleural effusion, as well as patchy right lower lobe compressive atelectasis. 4. Bulky precarinal mediastinal adenopathy as before. Dictated by: Bennie Hernandez M.D. on 05/02/2016 at 20:57 PROCEDURE: CHEST 1 VIEW IMPRESSION: Bulky right perihilar mass lesion as before, without acute cardiopulmonary disease. Dictated by: Bennie Hernandez M.D. on 05/02/2016 at 19:35 PROCEDURE: ABDOMEN WITH AND WITHOUT CONTR FINDINGS: Image quality: Multiple sequences are degraded by patient respiratory motion. Lung bases: There is trace basal right pleural effusion. Heart size is normal, status post median sternotomy. Solid organs: There is diffuse hepatomegaly, with innumerable hypoenhancing hepatic lesions in the right and left hepatic lobes. Gallbladder contains no gallstones or biliary sludge. Biliary system is non dilated. Pancreas is normal in morphology. No adrenal nodules. Both kidneys demonstrate normal size and enhancement, without hydronephrosis. Nodes and vessels: No retroperitoneal or mesenteric adenopathy by size criteria. Aorta and inferior vena cava are normal in size. Bowel and peritoneum: Unenhanced bowel loops are normal in caliber. There is trace free abdominal fluid. Bones and soft tissues: No ventral hernias. Bone marrow is normal in overall signal. IMPRESSION: 1. Findings consistent with innumerable widespread metastases throughout the liver, with resultant hepatomegaly. 2. Trace basal right pleural effusion, possibly malignant. Dictated by: Bennie Hernandez M.D. on 05/02/2016 at 19:45 PROCEDURE: BRAIN WITH AND WITHOUT CONTRAST CSF Spaces: Basal cisterns are patent. No extra-axial fluid collections. Ventricles are normal in size and shape. Brain: No midline shift. No intracranial bleeds or masses. No abnormal intracranial enhancement. There is mild periventricular and deep white matter chronic small vessel ischemic change. The brainstem appears normal. Diffusion-weighted images demonstrate no acute ischemic insults. No chronic ischemic insults. Normal intravascular flow voids are present. Skull and face: Calvarial marrow is normal in background signal. However, several small T1 hypointense marrow space occupying lesions are noted within the clivus. Orbits appear normal. Sinuses: Sinuses and mastoids appear clear. IMPRESSION: 1. No intracranial metastases identified. 2. Findings suspicious for several small bony metastases in the clivus. As such, consider further evaluation with whole-body bone scan. 3. Mild periventricular and deep white matter chronic small vessel ischemic change. Dictated by: Bennie Hernandez M.D. on 04/28/2016 at 12:19 Assessment & Plan 55-year-old female with small cell lung cancer with liver metastases, type II diabetes, and coronary artery disease presents as a transfer from [facility] for inpatient chemotherapy; Dr. Hartmann following. 1. Small cell right upper lobe lung cancer, present on admission, acute - Management per Dr. Hartmann oncology - Post chemotherapy: Aloxi 0.25mg IV x 1 dose, Emend 150mg IV x 1 dose, Cisplatin 130mg x 1 dose, Etopside 175mg daily x 3 doses - Oxygen as needed, patient currently on 2 L nasal cannula - Pain control with Percocet - Requested records from the OSH and records were reviewed, it appears she was there for Hyperglycemia. No cardiac work up is available - Radialogy called due to suspicion for a pneumothorax and a Left decubitus was ordered per their request. The read on that x-ray ruled out pneumothorax. -Continue on day 2 of chemotherapy infusion 2. Generalized weakness and malaise, present on admission, ongoing - Likely secondary to 1 and 3. - Continue supportive care, monitor I's and O's for fluid resuscitation needs 3. Metastatic disease of the liver, present on admission, ongoing - Transaminases elevated per documentation from [facility]. - CMP with morning labs 4. Type II diabetes mellitus, present on admission, chronic, active -- A1C 6.2 from records in last december - Patient recently started on Humulin, Januvia, fenofibrate, glimepiride, and Lantus discontinued - Humulin 70/30 15 units subcutaneously with p.m. meal, 30 units subcutaneously with breakfast, low-dose correctional scale: Changed this to 30 U basal and moderate scale SSI: Better control - We will monitor blood sugars 5. Acute exacerbation of congestive heart failure, present on admission, acute on chronic - 40 mg Lasix daily 6. Thrush, present on admission, acute - Continue clotrimazole 10 mg troches 5 times daily 7. Hypokalemia: Potassium 20 mg PO QD due to lasix home medication> She is given 40 meq more this AM Chronic, stable problems: Coronary artery disease - Continue metoprolol tartrate 50 mg twice a day, lisinopril 5 mg daily, Plavix 75 mg daily, and furosemide 40 mg by mouth daily Constipation. EKGs are heard - Continue docusate sodium Hyperlipidemia - Continue atorvastatin 10 mg daily GERD - Continue Protonix 40 mg by mouth twice a day Anemia Ferrous sulfate 325 mg daily Chronic atrial fibrillation: Per Dr. Hartmann, new onset in Apr. Ordered EKG When necessary antiemetic, when necessary bowel, Tylenol when necessary DVT prophylaxis with subcutaneous Lovenox. Patient is admitted under inpatient status with expected length of stay greater than 2 midnights due to severity of presenting symptoms, risk of adverse event, and complexity of treatment plan. Pain Evaluation: Adequate Pain Control GI Prophylaxis: Not indicated VTE Prophylaxis: Sub-Q Enoxaparin VTE Mechanical Devices: Intermittant Pneumatic CD Resuscitation Status: CPR: Attempt Resuscitation Susy Obrien DO May 08, 2016 13:06
--- NOTE | 2016-05-08 14:57 | NUR ---
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 Pt with poor po intake, taking bites. Pt with thrush, on medication. PMHX: DM, Afib,CHF DIET: Heart Healthy Diabetic. PO bites LABS: BUN 30, Cr 1.07, K+3.0, Alb 2.5, AST 250, ALT 255, Gtx081, A1c 9.9 MEDS: Reviewed. GI: WEIGHT: 72.4kg BMI: 29.0 EST.NEEDS: CANCER Kcal: 5720-8859 Pro 70-110 NUTRITION DIAGNOSIS: (1) Inadequate oral intake related to decreased appetite as evidenced by po intake bites x 2 days. INTERVENTION: (1) Spoke with pt at length re supplement options and increasing kcal/protein intake to maintain strength. Pt very drowsy, agreed to take supplements (i.e. ensure) mixed with milk. (2) Reviewed diabetic guidelines, pt not interested in education at this time. MONITOR/EVALUATE: PO intake, lab values. F/U per high risk. Addendum: 05/08/16 at [address] SKIN: Pressure ulcer consult received. Per Wound Care notes pt with 3 lesions around anus, not pressure related.
--- NOTE | 2016-05-08 15:01 | NUR ---
Off unit To PICC suite via bed at 15:40.
[2016-05-08 16:25] VITALS: BP 137/81; PULSE 80; RESP 18; O2SAT 94
--- NOTE | 2016-05-08 16:50 | DRSVH ---
PROCEDURE: X-RAY PICC LINE PLACEMENT BY NURSE ([id number]) INDICATIONS: CHEMO COMPARISON: None. FINDINGS: PICC was placed by the intravenous therapy team from the right side. Fluoroscopic spot fi lm demonstrates tip projected over the lower SVC. IMPRESSION: Tip of PICC projected over the lower SVC . Dictated by: Hernando SANDS Interpreted: Paulina Cook MD on 05/08/2016 at 16:49 Transcribed by: ADI on 05/08/2016 at 16:49 Approved by: Shital Rodríguez MD, PhD on 05/08/2016 at 17:13
--- NOTE | 2016-05-08 17:57 | NUR ---
PICC Per IV therapy, PICC is ok to use.
--- NOTE | 2016-05-08 18:44 | CCS NOTE ---
[facility] [address], [address] [address] MEDICAL ONCOLOGY OFFICE NOTE PATIENT: CARLEEN SHEIKH : 1960 MR#: [id number] DATE: 05/06/2016 JOB ID: [id number] DATE: 05/08/2016 This is a 55-year-old woman who was hospitalized for initiation of cisplatin day one and etoposide days one, two and three for extensive stage small-cell lung cancer with right hilar, right suprahilar mass, mediastinal adenopathy and extensive liver involvement. There was some question also whether she may have adrenal insufficiency, but the imaging did not show evidence of adrenal masses. She initiated cisplatin on May 07, 2016 at 13:00 and etoposide at 13:00 as well, so she should be able to receive her 3rd dose of etoposide at 13:00 on Thursday and receive Neulasta [address] Obrien is managing her diabetes and congestive heart failure and generalized weakness. Complicating her care is the fact that given the extensive liver involvement, she has an elevated bilirubin higher than usually acceptable for systemic chemotherapy, now at 3.7. Although cisplatin is metabolized mainly through renal excretion, the etoposide is metabolized through through hydroxy acid metabolites. Therefore, metabolism would be slower in the setting of liver disease. For this reason, the subsequent dose of etoposide will be reduced to 50%. Subjectively: She states she has had some significant nausea, but this has been helped by the addition of ondansetron and lorazepam with dexamethasone as a backup as well. She has no appetite. She is very sleepy and cannot get out of bed without assistance and this is her baseline before starting chemotherapy as well. She has chronic back pain but she feels it is well controlled at this time and does not ask for any additional medications. She has not had a bowel movement since admission and is otherwise very weak and tired. OBJECTIVE: Objectively, her temp is 36.7, pulse 80, respiratory rate 18, blood pressure 137/81, pulse ox 94% on 2 L. I and O's show minimal p.o. intake of 200 mL yesterday. Emesis none. Urine 750 mL. Her admission weight was 72.4 kg. Head and neck: She has moderate alopecia which predated the chemotherapy. She states that it has been going on for five years. She is mildly icteric. Pupils equal, round, reactive. No conjunctivitis. Oral mucosa is without thrush. Lymph nodes are negative in the neck and supraclavicular areas. Lungs are clear to auscultation posteriorly and anteriorly. Cardiac rhythm is regular. I do not appreciate a murmur. There is no peripheral edema. Abdomen: Soft, nontender. No palpable masses, although she is known to have a large liver with tumor infiltration. LABORATORY VALUES: The sodium is 142, potassium 3.0, chloride 95, CO2 29, BUN 30, creatinine 1.07, stable. Glucose 180. Calcium 7.3. Bilirubin is 3.7, up from 3.2. AST is down a little bit to 250 from 300. ALT stable at 255. Alkaline phosphatase 316, down from 347. Albumin is 2.5. The white count is 10.3, hemoglobin 10.7, hematocrit 34.0, platelets 95. ASSESSMENT AND RECOMMENDATIONS: 1. Extensive stage small-cell lung cancer in a very debilitated person. This patient has a very limited window in which to attempt systemic chemotherapy and therefore she is initiated on full doses, however, the dyspnea on exertion of etoposide will now be reduced to 50% due to the rising bilirubin. It is hoped that she does experience a tumor response and be able to continue on with chemotherapy, but if she shows no improvement, she understands that this would be the only course of chemotherapy she would receive. 2. Cytopenias. She does not have significant cytopenias yet but will undoubtedly develop them and will need to be monitored very closely after treatment. She will receive Neulasta 24 hours after last dose of etoposide. 3. Fluid and electrolytes. Dr. Obrien is managing these. She has a high uric acid of 10.9. She will need to have her magnesium monitored closely and patients with cisplatin treatment can often become hyponatremic as well, but this is not a problem yet. 4. Nutrition: At this time, the patient is eating very little, and we have not addressed the potential need for additional nutritional interventions. The patient will receive her 3rd reduced dose of etoposide tomorrow and then be basically involved in supportive care through the expected fabrizio of treatment. Whether she can be discharged after her 3rd dose will depend on her physical condition, but definitely she would need to be considered for longterm placement.
[2016-05-08 19:33] VITALS: BP 118/74; PULSE 89; RESP 16; O2SAT 97
[2016-05-08] MEDS: Dexamethasone 10 mg/mL Inj IV SCH (20:23)
[2016-05-08 22:14] VITALS: BP 143/68; PULSE 150; RESP 20; O2SAT 93
[2016-05-08] MEDS ORDERED: 0.9% Sodium Chloride 250 ML ONE (22:37)
[2016-05-08] MEDS: SODIUM CHLORIDE 0.9% IV SCH (22:55)
[2016-05-08] MEDS: ETOPOSIDE IV SCH (22:55)
[2016-05-09] MEDS: LORazepam 0.5 mg Tablet PO PRN (00:35)
[2016-05-09] MEDS: Insulin Human REGular 300 Unit/3 mL Inj SUBQ SCH ×4 (04:36→20:30)
[2016-05-09 04:48] LABS: Mean Corpuscular Hemoglobin 30.3 pg (27.0-35.0); Mean Corpuscular Volume 96.9 fL (81-100); Platelet Count 116 bil/L (150-400)
[2016-05-09 05:28] VITALS: BP 128/81; PULSE 90; RESP 18; O2SAT 96
--- NOTE | 2016-05-09 05:48 | PCM.PNMED ---
Subjective Date of Service May 09, 2016 Subjective We will examined. He is laying in bed with her arm under her head. Her PICC line seems to be getting a little bit at the site of insertion is her head was weighing on the top of the PICC LINe.. Her other arm also has a large hematoma. She is due for round 3 of chemotherapy infusion today. She says she is slightly better today since her feet are always swollen. She says she was walking okay until her last admission at OSH. She is eating somewhat and not needing a lot of insulin. No fevers or chills overnight. No other concerns Exam Vital Signs Vital Sign - Last Date Time Temp Pulse Resp B/P Pulse Ox O2 Delivery O2 Flow Rate FiO2 05/09/16 05:28 36.5 90 18 128/81 96 Nasal Cannula 2.00 05/07/16 04:59 98 Intake and Output 05/08/16 05/08/16 05/09/16 Cumulative From/Thru 15:00 23:00 07:00 05/06/16 18:10 - 05/09/16 00:29 Intake Total 199 ml 120 ml 355 ml 3270 ml Output Total 600 ml 1900 ml Balance 199 ml -480 ml 355 ml 1370 ml Intake Oral 120 ml 594 ml IV Total 199 ml 355 ml 2676 ml Output Urine Total 600 ml 1900 ml # Bowel Movements 0 IVs and Medications Medications Reviewed: Medications were reviewed in detail Lab and Diagnostics Result Diagram: 05/09/16 0430 05/08/16 0700 X-Rays, CTs and MRIs PROCEDURE: PE STUDY (CTA CHEST) INDICATIONS: 55 year-old female with metastatic small cell lung carcinoma, with hypoxia and shortness of breath. COMPARISON: [facility], CT, THORAX WITH CONTRAST, 04/15/2016, 9:49. FINDINGS: Image quality: Excellent. Pulmonary arteries: Pulmonary arteries are normal in size, and demonstrate no intraluminal filling defects to suggest central pulmonary embolism. Lungs and pleura: 4.5 x 4.3 cm medial right upper lobe mass is again noted, enveloping the right upper lobe pulmonary artery with mild extrinsic narrowing. Mass also causes greater than 85% extrinsic narrowing of the superior vena cava. Small dependent right pleural effusion is now present, along with right lower lobe compressive atelectasis. No pneumothorax. Central and peripheral airways are patent. Mediastinum: Heart size is normal, without pericardial effusion. Patient is status post coronary artery bypass grafting. Bulky precarinal adenopathy is unchanged. Thoracic aorta is normal in caliber and enhancement. Esophagus is normal in caliber, without hiatal hernia. Bones and chest wall: No suspicious bony lesions. Ribs and thoracic spine appear intact throughout. Thyroid gland is normal in size. No axillary or supraclavicular adenopathy. Abdomen: Visualized upper abdominal solid organs appear normal in the early arterial phase of enhancement. IMPRESSION: 1. No evidence for central pulmonary embolism. 2. Medial right upper lobe 4.5 cm mass again noted, with extrinsic mass effect on the superior vena cava and right upper lobe pulmonary artery. No current findings of faby superior vena cava syndrome. 3. Interval development of small basal right pleural effusion, as well as patchy right lower lobe compressive atelectasis. 4. Bulky precarinal mediastinal adenopathy as before. Dictated by: Bennie Hernandez M.D. on 05/02/2016 at 20:57 PROCEDURE: CHEST 1 VIEW IMPRESSION: Bulky right perihilar mass lesion as before, without acute cardiopulmonary disease. Dictated by: Bennie Hernandez M.D. on 05/02/2016 at 19:35 PROCEDURE: ABDOMEN WITH AND WITHOUT CONTR FINDINGS: Image quality: Multiple sequences are degraded by patient respiratory motion. Lung bases: There is trace basal right pleural effusion. Heart size is normal, status post median sternotomy. Solid organs: There is diffuse hepatomegaly, with innumerable hypoenhancing hepatic lesions in the right and left hepatic lobes. Gallbladder contains no gallstones or biliary sludge. Biliary system is non dilated. Pancreas is normal in morphology. No adrenal nodules. Both kidneys demonstrate normal size and enhancement, without hydronephrosis. Nodes and vessels: No retroperitoneal or mesenteric adenopathy by size criteria. Aorta and inferior vena cava are normal in size. Bowel and peritoneum: Unenhanced bowel loops are normal in caliber. There is trace free abdominal fluid. Bones and soft tissues: No ventral hernias. Bone marrow is normal in overall signal. IMPRESSION: 1. Findings consistent with innumerable widespread metastases throughout the liver, with resultant hepatomegaly. 2. Trace basal right pleural effusion, possibly malignant. Dictated by: Bennie Hernandez M.D. on 05/02/2016 at 19:45 PROCEDURE: BRAIN WITH AND WITHOUT CONTRAST CSF Spaces: Basal cisterns are patent. No extra-axial fluid collections. Ventricles are normal in size and shape. Brain: No midline shift. No intracranial bleeds or masses. No abnormal intracranial enhancement. There is mild periventricular and deep white matter chronic small vessel ischemic change. The brainstem appears normal. Diffusion-weighted images demonstrate no acute ischemic insults. No chronic ischemic insults. Normal intravascular flow voids are present. Skull and face: Calvarial marrow is normal in background signal. However, several small T1 hypointense marrow space occupying lesions are noted within the clivus. Orbits appear normal. Sinuses: Sinuses and mastoids appear clear. IMPRESSION: 1. No intracranial metastases identified. 2. Findings suspicious for several small bony metastases in the clivus. As such, consider further evaluation with whole-body bone scan. 3. Mild periventricular and deep white matter chronic small vessel ischemic change. Dictated by: Bennie Hernandez M.D. on 04/28/2016 at 12:19 Assessment & Plan 55-year-old female with small cell lung cancer with liver metastases, type II diabetes, and coronary artery disease presents as a transfer from [facility] for inpatient chemotherapy; Dr. Hartmann following. 1. Small cell right upper lobe lung cancer, present on admission, acute - Management per Dr. Hartmann oncology - Post chemotherapy: Aloxi 0.25mg IV x 1 dose, Emend 150mg IV x 1 dose, Cisplatin 130mg x 1 dose, Etopside 175mg daily x 3 doses - Oxygen as needed, patient currently on 2 L nasal cannula - Pain control with Percocet - Requested records from the OSH and records were reviewed, it appears she was there for Hyperglycemia. No cardiac work up is available - Radialogy called due to suspicion for a pneumothorax and a Left decubitus was ordered per their request. The read on that x-ray ruled out pneumothorax. -Continue on day 3 of chemotherapy infusion 2. Generalized weakness and malaise, present on admission, ongoing - Likely secondary to 1 and 3. - Continue supportive care, monitor I's and O's for fluid resuscitation needs 3. Metastatic disease of the liver, present on admission, ongoing - Transaminases elevated per documentation from [facility]. - CMP with morning labs 4. Type II diabetes mellitus, present on admission, chronic, active -- A1C 6.2 from records in last december - Patient recently started on Humulin, Januvia, fenofibrate, glimepiride, and Lantus discontinued - Humulin 70/30 15 units subcutaneously with p.m. meal, 30 units subcutaneously with breakfast, low-dose correctional scale: Changed this to 30 U basal and moderate scale SSI: Better control - We will monitor blood sugars 5. Acute exacerbation of congestive heart failure, present on admission, acute on chronic - 40 mg Lasix daily 6. Thrush, present on admission, acute - Continue clotrimazole 10 mg troches 5 times daily 7. Hypokalemia: Potassium 20 mg PO QD due to lasix home medication> She is given 40 meq more this AM 8. Bleeding from PICC line site: We discontinued the enoxaparin. Contacted Dr. Ewing from oncology due to concern for any possible side effects that may be causing bleeding he felt that it was Plavix that the patient was on nontender she came here to [facility] that resulted in her bleeding issues. Dr. Jordan he did not feel there is any need to stop infusion. He thought that if need be we could give her some platelets and can keep continuing the current infusion. 9. Large hematoma over the left antecubital area: US venous ultrasound of left upper extremity is ordered Chronic, stable problems: Coronary artery disease - Continue metoprolol tartrate 50 mg twice a day, lisinopril 5 mg daily, Plavix 75 mg daily, and furosemide 40 mg by mouth daily. EKG showed sinus rhythm today Constipation. EKGs are heard - Continue docusate sodium Hyperlipidemia - Continue atorvastatin 10 mg daily GERD - Continue Protonix 40 mg by mouth twice a day Anemia Ferrous sulfate 325 mg daily Chronic atrial fibrillation: Per Dr. Harmtann, new onset in Apr. Ordered EKG: Normal sinus rhythm When necessary antiemetic, when necessary bowel, Tylenol when necessary DVT prophylaxis SCD Patient is admitted under inpatient status with expected length of stay greater than 2 midnights due to severity of presenting symptoms, risk of adverse event, and complexity of treatment plan. GI Prophylaxis: Not indicated VTE Prophylaxis: Sub-Q Enoxaparin VTE Mechanical Devices: Intermittant Pneumatic CD Resuscitation Status: CPR: Attempt Resuscitation Susy Obrien DO May 09, 2016 05:47
[2016-05-09] MEDS: Pantoprazole 40 mg ER24 Tablet PO SCH ×2 (05:53→18:10)
[2016-05-09] MEDS: Clotrimazole Troche 10 mg Tablet MT SCH ×5 (05:53→21:12)
[2016-05-09] MEDS: oxyCODONE-Acetamin 5-325 mg Tablet PO PRN ×2 (05:54→19:41)
--- NOTE | 2016-05-09 06:13 | NUR ---
PICC / Bruise / chemo PICC line oozing blood through night, reinforced dressing with pressure. PICC flushes and draws briskly. Bruise to Left arm has increases during night significantly. Entire area palpates as soft except slightly harder area of origin which is tender. Color has darkened significantly. Pulse distally is normal, pt has full sensation. Tolerated chemo without incident. AM labs drawn, Dr Hartmann to follow up.
[2016-05-09 07:43] VITALS: BP 130/80; PULSE 89; RESP 18; O2SAT 99
[2016-05-09 08:50] LABS: Magnesium 2.1 mg/dL (1.6-2.6)
--- NOTE | 2016-05-09 11:37 | NUR ---
Faxed clinicals to [facility], spoke with Elías in admissions and he was aware of patient and she is likely go there for rehab. green promotions specialist informed me of active auth through [facility] for fdc. She is continuing to follow and will work with insurance. Addendum: 05/09/16 at 1142 by LUIZ FUNES SS SPOKE WITH [facility] AT [facility], PT IS APPROVED TO GO TO [facility]. WILL FAX UPDATE TO [facility] THURSDAY WITH PT NOTES. ADVISED UR TONY.
[2016-05-09 11:44] LABS: BASOPHILS % (AUTO) 0.1 % (0-3); EOSINOPHILS % (AUTO) 0.7 % (0-5); NEUTROPHILS % (AUTO) 96.2 % (40-74)
[2016-05-09 13:01] VITALS: BP 108/76; PULSE 85; O2SAT 97
--- NOTE | 2016-05-09 14:51 | NUR ---
Social Work- Continued D/C Planning Data: EMR reviewed. Pt is on day 3 of hospitalization for small cell lung cancer per H&P. Pt receiving chemotherapy. PT recommends SNF at this time. SW spoke with pt at bedside regarding discharge plan. Pt somnolent while speaking with SW. SW informed pt about referral to [facility]. UR Specialist is pursuing acceptance and authorization with [facility] and [facility]. Paperwork in chart. PASRR in folder. Pt agreeable to plan. SW will continue to follow. Assessment: Pt who would benefit from SNF. Plan: PT recommends SNF at this time. UR Specialist is pursuing acceptance and authorization with [facility] and [facility]. Paperwork in chart. PASRR in folder. Pt agreeable to plan. SW will continue to follow. FERNANDO Wets
[2016-05-09 16:41] VITALS: BP 126/79; PULSE 87; RESP 18; O2SAT 97
--- NOTE | 2016-05-09 18:16 | NUR ---
Late med/bleeding Lopid not admin yet, has not arrived from pharmacy despite phone call and fax, not available in [employer]. Next shift RN will be made aware. L arm bruise increasing in size and darkening in color. US Doppler ordered; pending. PICC line also bleeding through dressing x2. Lindsey from IV therapy aware and redressed. I reinforced. Hospitalist aware, no new orders at this time.
[2016-05-09 19:40] VITALS: BP 135/81; PULSE 87; RESP 19; O2SAT 92
--- NOTE | 2016-05-09 19:56 | DRSVH ---
PROCEDURE: US VENOUS ARM DUPLEX UNILATERAL, LEFT INDICATIONS: hematoma, swelling TECHNIQUE: Real-time imaging, as well as color and pulse Doppler interrogation, was performed of the left upper extremity deep veins from the inferior neck to the antecubital fossa. COMPARISON: None. FINDINGS: The internal jugular vein, visualized portions of the subclavian vein, axillary, and brach ial veins are free of intraluminal thrombus. Where physically possible, the veins are normally compr essible. Color and pulse Doppler demonstrate normal intraluminal flow, with expected phasicity and p ulsatility. Additional scanning of the cephalic and basilic veins of the superficial system demonstr ate normal compressibility, without thrombus. There is marked edema throughout the left upper extrem ity soft tissues. IMPRESSION: Somewhat limited study secondary to subcutaneous edema. No deep vein thrombosis of left u pper extremity. Dictated by: Shannon Watkins M.D. on 05/09/2016 at 19:53 Approved by: Shannon Watkins M.D. on 05/09/2016 at 19:54
--- NOTE | 2016-05-09 20:06 | NUR ---
PICC line dressing changed a total of three times this evening due to persistent bleeding/oozing from site. TOBI and made aware. Addendum: 05/09/16 at 2008 by IDRIS SCHMITZ RN Each time compression dressing used, with 4x4's wadded up over insertion site, then a compression wrap. Gauze is external to PICC insertion site.
[2016-05-09] MEDS: Insulin GLARgine 100 Unit/mL Syringe SUBQ SCH (21:11)
[2016-05-09] MEDS ORDERED: Dexamethasone 10 mg/mL Inj IV SCH (22:30)
[2016-05-09 23:38] VITALS: BP 129/76; PULSE 82; RESP 19; O2SAT 93
[2016-05-10] VITALS (8 sets, daily range): BP systolic 105–144; BP diastolic 65–82; PULSE 81–86; RESP 12–18; O2SAT 96–100
[2016-05-10] MEDS: ETOPOSIDE IV SCH ×2
[2016-05-10] MEDS: SODIUM CHLORIDE 0.9% IV SCH ×2
[2016-05-10] MEDS: Insulin Human REGular 300 Unit/3 mL Inj SUBQ SCH ×4 (02:30→20:21)
--- NOTE | 2016-05-10 04:40 | NUR ---
Chemo / Etoposide. Pre-med Dexamethazone given. Orders reviewed with Deanna martinez. VSS, Labs WNL's. Brisk blood return from IV picc line. Started at midnight and completed a t 0100. Tolerated well. IV picc site continues to leak blood / changed outer pressure dressing X1 overnight.
[2016-05-10] MEDS: Clotrimazole Troche 10 mg Tablet MT SCH ×5 (06:05→20:08)
[2016-05-10] MEDS: oxyCODONE-Acetamin 5-325 mg Tablet PO PRN ×2 (06:06→15:35)
[2016-05-10 06:27] LABS: Mean Corpuscular Hemoglobin 30.6 pg (27.0-35.0); Mean Corpuscular Volume 96.4 fL (81-100)
[2016-05-10 06:49] LABS: Magnesium 2.1 mg/dL (1.6-2.6)
[2016-05-10] MEDS: Pantoprazole 40 mg ER24 Tablet PO SCH ×2 (09:11→17:28)
--- NOTE | 2016-05-10 11:56 | PCM.PNMED ---
Subjective Date of Service May 10, 2016 Subjective 1 unit of Platelets are ordered this morning due to concern for continued infiltration in the PICC line area. Patient is endorsing increased levels of depression. Dr. Montano feels that patient can get Neupogen today and [facility]. She says she is feeling about the same as she did when she came here Exam Vital Signs Vital Sign - Last Date Time Temp Pulse Resp B/P Pulse Ox O2 Delivery O2 Flow Rate FiO2 05/10/16 09:21 Supplement Oxygen 05/10/16 08:18 36.5 85 18 115/73 100 2.00 05/07/16 04:59 98 Intake and Output 05/09/16 05/09/16 05/10/16 Cumulative From/Thru 15:00 23:00 07:00 05/06/16 18:10 - 05/10/16 05:24 Intake Total 320 ml 377 ml 4117 ml Output Total 1200 ml 250 ml 3900 ml Balance -880 ml 127 ml 217 ml Intake Oral 320 ml 100 ml 1164 ml IV Total 277 ml 2953 ml Output Urine Total 1200 ml 250 ml 3900 ml # Bowel Movements 0 Exam Gen.: No acute distress laying in bed HEENT: Normocephalic, atraumatic Heart: Regular rate and rhythm, no S3-S4 murmurs Lungs difficult to auscultation due to body habitus and inability to move Abdomen: Soft nontender normal bowel sounds Extremities: Large hematoma over left posterior arm. On the right side PICC line area is dressed fresh dressings. Extremities: Improved pedal edema IVs and Medications Medications Reviewed: Medications were reviewed in detail Lab and Diagnostics Result Diagram: 05/10/1658 05/10/16 0558 X-Rays, CTs and MRIs PROCEDURE: PE STUDY (CTA CHEST) INDICATIONS: 55 year-old female with metastatic small cell lung carcinoma, with hypoxia and shortness of breath. COMPARISON: [facility], CT, THORAX WITH CONTRAST, 04/15/2016, 9:49. FINDINGS: Image quality: Excellent. Pulmonary arteries: Pulmonary arteries are normal in size, and demonstrate no intraluminal filling defects to suggest central pulmonary embolism. Lungs and pleura: 4.5 x 4.3 cm medial right upper lobe mass is again noted, enveloping the right upper lobe pulmonary artery with mild extrinsic narrowing. Mass also causes greater than 85% extrinsic narrowing of the superior vena cava. Small dependent right pleural effusion is now present, along with right lower lobe compressive atelectasis. No pneumothorax. Central and peripheral airways are patent. Mediastinum: Heart size is normal, without pericardial effusion. Patient is status post coronary artery bypass grafting. Bulky precarinal adenopathy is unchanged. Thoracic aorta is normal in caliber and enhancement. Esophagus is normal in caliber, without hiatal hernia. Bones and chest wall: No suspicious bony lesions. Ribs and thoracic spine appear intact throughout. Thyroid gland is normal in size. No axillary or supraclavicular adenopathy. Abdomen: Visualized upper abdominal solid organs appear normal in the early arterial phase of enhancement. IMPRESSION: 1. No evidence for central pulmonary embolism. 2. Medial right upper lobe 4.5 cm mass again noted, with extrinsic mass effect on the superior vena cava and right upper lobe pulmonary artery. No current findings of faby superior vena cava syndrome. 3. Interval development of small basal right pleural effusion, as well as patchy right lower lobe compressive atelectasis. 4. Bulky precarinal mediastinal adenopathy as before. Dictated by: Bennie Hernandez M.D. on 05/02/2016 at 20:57 PROCEDURE: CHEST 1 VIEW IMPRESSION: Bulky right perihilar mass lesion as before, without acute cardiopulmonary disease. Dictated by: Bennie Hernandez M.D. on 05/02/2016 at 19:35 PROCEDURE: ABDOMEN WITH AND WITHOUT CONTR FINDINGS: Image quality: Multiple sequences are degraded by patient respiratory motion. Lung bases: There is trace basal right pleural effusion. Heart size is normal, status post median sternotomy. Solid organs: There is diffuse hepatomegaly, with innumerable hypoenhancing hepatic lesions in the right and left hepatic lobes. Gallbladder contains no gallstones or biliary sludge. Biliary system is non dilated. Pancreas is normal in morphology. No adrenal nodules. Both kidneys demonstrate normal size and enhancement, without hydronephrosis. Nodes and vessels: No retroperitoneal or mesenteric adenopathy by size criteria. Aorta and inferior vena cava are normal in size. Bowel and peritoneum: Unenhanced bowel loops are normal in caliber. There is trace free abdominal fluid. Bones and soft tissues: No ventral hernias. Bone marrow is normal in overall signal. IMPRESSION: 1. Findings consistent with innumerable widespread metastases throughout the liver, with resultant hepatomegaly. 2. Trace basal right pleural effusion, possibly malignant. Dictated by: Bennie Hernandez M.D. on 05/02/2016 at 19:45 PROCEDURE: BRAIN WITH AND WITHOUT CONTRAST CSF Spaces: Basal cisterns are patent. No extra-axial fluid collections. Ventricles are normal in size and shape. Brain: No midline shift. No intracranial bleeds or masses. No abnormal intracranial enhancement. There is mild periventricular and deep white matter chronic small vessel ischemic change. The brainstem appears normal. Diffusion-weighted images demonstrate no acute ischemic insults. No chronic ischemic insults. Normal intravascular flow voids are present. Skull and face: Calvarial marrow is normal in background signal. However, several small T1 hypointense marrow space occupying lesions are noted within the clivus. Orbits appear normal. Sinuses: Sinuses and mastoids appear clear. IMPRESSION: 1. No intracranial metastases identified. 2. Findings suspicious for several small bony metastases in the clivus. As such, consider further evaluation with whole-body bone scan. 3. Mild periventricular and deep white matter chronic small vessel ischemic change. Dictated by: Bennie Hernandez M.D. on 04/28/2016 at 12:19 Assessment & Plan 55-year-old female with small cell lung cancer with liver metastases, type II diabetes, and coronary artery disease presents as a transfer from [facility] for inpatient chemotherapy; Dr. Montano following. 1. Small cell right upper lobe lung cancer, present on admission, acute - Management per Dr. Montano oncology - Post chemotherapy: Aloxi 0.25mg IV x 1 dose, Emend 150mg IV x 1 dose, Cisplatin 130mg x 1 dose, Etopside 175mg daily x 3 doses - Oxygen as needed, patient currently on 2 L nasal cannula - Pain control with Percocet - Requested records from the OSH and records were reviewed, it appears she was there for Hyperglycemia. No cardiac work up is available - Radialogy called due to suspicion for a pneumothorax and a Left decubitus was ordered per their request. The read on that x-ray ruled out pneumothorax. -Continue on day 3 of chemotherapy infusion: She completed the therapy 2. Generalized weakness and malaise, present on admission, ongoing - Likely secondary to 1 and 3. - Continue supportive care, monitor I's and O's for fluid resuscitation needs 3. Metastatic disease of the liver, present on admission, ongoing - Transaminases elevated per documentation from [facility]. - CMP with morning labs 4. Type II diabetes mellitus, present on admission, chronic, active -- A1C 6.2 from records in last december - Patient recently started on Humulin, Januvia, fenofibrate, glimepiride, and Lantus discontinued - Humulin 70/30 15 units subcutaneously with p.m. meal, 30 units subcutaneously with breakfast, low-dose correctional scale: Changed this to 30 U basal and moderate scale SSI: Better control - We will monitor blood sugars 5. Acute exacerbation of congestive heart failure, present on admission, acute on chronic - 40 mg Lasix daily 6. Thrush, present on admission, acute - Continue clotrimazole 10 mg troches 5 times daily 7. Hypokalemia: Potassium 20 mg PO QD due to lasix home medication> She is given 40 meq more this AM 8. Bleeding from PICC line site: We discontinued the enoxaparin. Contacted Dr. Ewing from oncology due to concern for any possible side effects that may be causing bleeding he felt that it was Plavix that the patient was on nontender she came here to [facility] that resulted in her bleeding issues. Dr. Jordan he did not feel there is any need to stop infusion. He thought that if need be we could give her some platelets and can keep continuing the current infusion. 9. Large hematoma over the left antecubital area: US venous ultrasound of left upper extremity is ordered: Negative for DVT 10. Acute renal injury: NSS fluids were provided. Ibuprofen and lisinopril were discontinued Chronic, stable problems: Coronary artery disease - Continue metoprolol tartrate 50 mg twice a day, lisinopril 5 mg daily, Plavix 75 mg daily, and furosemide 40 mg by mouth daily. EKG showed sinus rhythm today Constipation. EKGs are heard - Continue docusate sodium Hyperlipidemia - Continue atorvastatin 10 mg daily GERD - Continue Protonix 40 mg by mouth twice a day Anemia Ferrous sulfate 325 mg daily Chronic atrial fibrillation: Per Dr. Montano, new onset in Apr. Ordered EKG: Normal sinus rhythm When necessary antiemetic, when necessary bowel, Tylenol when necessary DVT prophylaxis SCD Patient is admitted under inpatient status with expected length of stay greater than 2 midnights due to severity of presenting symptoms, risk of adverse event, and complexity of treatment plan. GI Prophylaxis: Not indicated VTE Prophylaxis: Sub-Q Enoxaparin VTE Mechanical Devices: Intermittant Pneumatic CD Resuscitation Status: CPR: Attempt Resuscitation Susy Obrien DO May 10, 2016 11:56
[2016-05-10] MEDS: 0.9% Sodium Chloride 1,000 ML IV SCH ×2 (12:47→23:35)
[2016-05-10] MEDS ORDERED: 0.9% Sodium Chloride 250 ML ONE (15:04)
--- NOTE | 2016-05-10 15:17 | NUR ---
Platelets Pt consents to blood products VSS double checked w/ 2nd RN.
--- NOTE | 2016-05-10 16:25 | NUR ---
Mentation / Skin / PICC line Throughout shift pt has not held attention, has to be redirected and reprompted when asked to do a task. Hospitalist aware. Gaze is altered, oriented to herself and location, but not to time. Pt also presents with a jaundiced tinge skin and sclera. PICC line continues to bleed through bandages. IVT called x2 this shift. Platelets infusing Bed down and in locked position, call light w/in reach.
--- NOTE | 2016-05-10 16:53 | NUR ---
No urine output this shift Pt has only requested to use bedpan once this shift w/ no output IV Fluids started Bladder scan performed at approx 1630 703mls found in bladder. Placed pt on bedpan and encouraged her to urinate. Pt able to void 275 mls. Post void residual scan 553mls Hospitalist aware. Pt does not exhibit or complain of any discomfort Addendum: 05/10/16 at 1749 by SAMMI YIP RN In/Out cath performed 325mls released recheck bladder scan in 6 hrs if no use of bed mota
[2016-05-10] MEDS: Insulin GLARgine 100 Unit/mL Syringe SUBQ SCH (20:23)
--- NOTE | 2016-05-10 23:44 | PROG NOTE ---
[address] [address] PROGRESS NOTE PATIENT: CARLEEN SHEIKH : 1960 MR#: [id number] ADMIT: 05/06/2016 JOB ID: [id number] DATE: 05/10/2016. HISTORY: This is a 55-year-old woman who has completed three days of cisplatin and etoposide. Etoposide reduced to 50% due to high bilirubin, for extensive stage small cell lung cancer with a right suprahilar mass, mediastinal adenopathy with impingement on the SVC and as well multiple liver metastases. She has done reasonably well in terms of her physical tolerance, nausea, and pain. Still has continued low back pain which predated her chemotherapy. She is being followed by Dr. Obrien of Hospitalist Service as well who is managing her fluid and electrolytes, her diabetes, her mild renal insufficiency, which may have been exacerbated by cisplatin, and she is getting IV hydration for that. In addition, her uric acid was quite high at over 10. The goal given her extremely poor performance status was to see if we could reverse this very aggressive process of lung cancer before it is too late and has compromised and accept that we will be administering treatment with less than optimal liver enzymes and bilirubin. The plan is to administer Neulasta 24 hours after the last dose of chemotherapy and she does have a spot at [facility] and can be monitored as outpatient. Will need to be seen in Oncology Clinic at least on Thursday, the , and thereafter frequently. Subjectively, she states she is doing as well as can be expected. She has been nibbling on a little bit of food. Her nausea she states is well controlled. She feels that she is reasonably comfortable at this point in time. OBJECTIVE: VITAL SIGNS: Her pulse was 85, respiratory rate 18, temp 36.5, pulse ox 100% on 2 L, although she was not using cannula when I saw her. I's and O's show modest p.o. intake yesterday at 470. No emesis. Urine 1750. No bowel movements. Weight on admission was 72.4 kg, not re-weighed. GENERAL: She looks comfortable. She is talkative and appropriate. HEAD AND NECK: Modest alopecia. Pupils equal, round, reactive. No icterus. No conjunctivitis. Oral and oropharyngeal mucosa clear of thrush or lesions. Tongue is red, but this is because she has been consuming a red beverage. LYMPH NODES: Negative in the neck and supraclavicular area. LUNGS: Clear to auscultation anteriorly and laterally. CARDIAC: Rhythm is regular without murmur or peripheral edema. ABDOMEN: Soft, nontender. Bowel sounds active. EXTREMITIES: Without edema. She has SCDs in place. LABORATORY VALUES: The white blood cell count is 12.7, hemoglobin 8.5, hematocrit 26.8, and platelets 94. Apparently, she did have some bleeding and received a platelet transfusion from Dr. Obrien. The BUN and creatinine have bumped up a little bit to 48 and 1.41 from 39 and 1.18. Before she started cisplatin, the creatinine was 1.10. The calcium is 7.3. Uric acid on May 10, 2016 is 10.2, magnesium 2.1. Glucose 156, much improved. ALT 261, stable; AST 59, stable; bilirubin 4.0, slightly higher than previous values. Alk phos 295. These are all assumed related to her metastatic disease in the liver. ASSESSMENT AND RECOMMENDATIONS: Metastatic small cell lung cancer. This is viewed as her only hope to reverse this very aggressive process. Small-cell lung cancer has the propensity to respond very quickly to systemic chemotherapy and it is hoped that this will be the case for her. We will monitor her condition very closely. She will need to have support transfusion, and otherwise as she gets through the first cycle, we will determine whether or not there has been any benefit to the first cycle of chemotherapy that would warrant a second cycle. She will be transferred to [facility] where her counts will be monitored closely and supportive care will be arranged through Oncology Clinic.
[2016-05-11] MEDS ORDERED: [UNRECOGNIZED DRUG - OTHER] SUBQ ONE (01:00)
--- NOTE | 2016-05-11 03:03 | NUR ---
unable to void per bedpan @ 2200. Bladder scan with 690ml. I/O cath done with 700ml out.
[2016-05-11] MEDS: Insulin Human REGular 300 Unit/3 mL Inj SUBQ SCH ×4 (03:44→21:38)
[2016-05-11 05:31] LABS: Magnesium 2.3 mg/dL (1.6-2.6)
[2016-05-11 05:43] VITALS: BP 145/84; PULSE 89; RESP 16; O2SAT 98
--- NOTE | 2016-05-11 06:00 | NUR ---
Bladder scan 0445 with 927ml urine. Patient able to void 500ml. I/O cath done and drained remaining 400ml at 0500.
[2016-05-11] MEDS: Clotrimazole Troche 10 mg Tablet MT SCH ×5 (07:11→21:39)
[2016-05-11 07:13] LABS: Mean Corpuscular Hemoglobin 30.7 pg (27.0-35.0); Mean Corpuscular Volume 96.6 fL (81-100)
--- NOTE | 2016-05-11 08:11 | NUR ---
Evaluation completed. Please go to "Notes" then click on "Assessments and Notes" (bottom left corner of screen). Then select appropriate discipline tab on top of screen. Late Entry, evaluation completed on 05/09/16.
[2016-05-11] MEDS ORDERED: Calcium GLUCO 10% (Gm) Inj 1 GM in 0.9% Sodium Chloride 50 ML IV ONE (08:25)
[2016-05-11] MEDS: Pantoprazole 40 mg ER24 Tablet PO SCH ×2 (08:32→17:44)
[2016-05-11] MEDS: oxyCODONE-Acetamin 5-325 mg Tablet PO PRN ×3 (08:33→20:37)
[2016-05-11] MEDS ORDERED: KCl 20 mEq/100 mL(CENTRAL) 20 MEQ in IV Premix 1 EACH IV ONE (09:20)
[2016-05-11] MEDS ORDERED: Potassium Chloride 20 mEq SR Tablet PO ONE (09:20)
[2016-05-11 10:17] VITALS: PULSE 83
--- NOTE | 2016-05-11 10:38 | NUR ---
Hypokalemic and hypocalcemic Rec'd call from lab w/ critical Calcium level of 6.6. Paged hospitalist Also noticed that Potassium was 2.9 this morning and spoke w/ hospitalist IV calcium and potassium ordered, tele placed per protocol Bed down and locked call light w/in reach
[2016-05-11] MEDS: 0.9% Sodium Chloride 1,000 ML IV SCH ×2 (10:50→18:15)
--- NOTE | 2016-05-11 11:28 | NUR ---
Michel Placed pt on bedpan, she was unable to void Bladder scan >700 Spoke to , ordered to place Michel. Michel placed w/o complication approx 700mls immediately relieved. Bed down and locked, call light w/in reach
--- NOTE | 2016-05-11 12:18 | PCM.PNMED ---
Subjective Date of Service May 11, 2016 Subjective Patient is jaundiced, anemic. Receiving potassium, blood today. Says she has no pain in her abdomen. She is endorsing Poor appetite. Urine retention has been an issue. Started her on tamsulosin for urine retention and Prozac for depression. She has been talking about feeling sad for some time now. She appears very resigned to her fate. She said that she has no pain in her abdomen. Her previous scans do show concern for liver metastases. Exam Vital Signs Vital Sign - Last Date Time Temp Pulse Resp B/P Pulse Ox O2 Delivery O2 Flow Rate FiO2 05/11/16 10:17 83 05/11/16 08:42 Supplement Oxygen 05/11/16 05:43 36.9 16 145/84 98 2.00 05/07/16 04:59 98 Intake and Output 05/10/16 05/10/16 05/11/16 Cumulative From/Thru 15:00 23:00 07:00 05/06/16 18:10 - 05/11/16 06:30 Intake Total 658 ml 1379 ml 6154 ml Output Total 1350 ml 900 ml 6150 ml Balance -692 ml 479 ml 4 ml Intake Oral 76 ml 100 ml 1340 ml IV Total 377 ml 1279 ml 4609 ml Platelets 205 ml 205 ml Output Urine Total 1350 ml 900 ml 6150 ml # Bowel Movements 0 0 Exam Gen.: Laying in bed, hirsuitism is present, appears jaundiced HEENT: Normocephalic, atraumatic Extremities: Hematoma appears to be resolving over her posterior left arm. Right arm has PICC line and it is covered in dressings. Heart: Regular rate and rhythm no S3-S4 Lungs: Difficult to auscultate due to body habitus, no crackles or wheezing anteriorly. Posteriorly she is very diminished right greater than left Psych: Mood depressed, affect resigned Neuro: Nonfocal that is Lab and Diagnostics Result Diagram: 05/11/1644405/11/16444 X-Rays, CTs and MRIs PROCEDURE: PE STUDY (CTA CHEST) INDICATIONS: 55 year-old female with metastatic small cell lung carcinoma, with hypoxia and shortness of breath. COMPARISON: [facility], CT, THORAX WITH CONTRAST, 04/15/2016, 9:49. FINDINGS: Image quality: Excellent. Pulmonary arteries: Pulmonary arteries are normal in size, and demonstrate no intraluminal filling defects to suggest central pulmonary embolism. Lungs and pleura: 4.5 x 4.3 cm medial right upper lobe mass is again noted, enveloping the right upper lobe pulmonary artery with mild extrinsic narrowing. Mass also causes greater than 85% extrinsic narrowing of the superior vena cava. Small dependent right pleural effusion is now present, along with right lower lobe compressive atelectasis. No pneumothorax. Central and peripheral airways are patent. Mediastinum: Heart size is normal, without pericardial effusion. Patient is status post coronary artery bypass grafting. Bulky precarinal adenopathy is unchanged. Thoracic aorta is normal in caliber and enhancement. Esophagus is normal in caliber, without hiatal hernia. Bones and chest wall: No suspicious bony lesions. Ribs and thoracic spine appear intact throughout. Thyroid gland is normal in size. No axillary or supraclavicular adenopathy. Abdomen: Visualized upper abdominal solid organs appear normal in the early arterial phase of enhancement. IMPRESSION: 1. No evidence for central pulmonary embolism. 2. Medial right upper lobe 4.5 cm mass again noted, with extrinsic mass effect on the superior vena cava and right upper lobe pulmonary artery. No current findings of faby superior vena cava syndrome. 3. Interval development of small basal right pleural effusion, as well as patchy right lower lobe compressive atelectasis. 4. Bulky precarinal mediastinal adenopathy as before. Dictated by: Bennie Hernandez M.D. on 05/02/2016 at 20:57 PROCEDURE: CHEST 1 VIEW IMPRESSION: Bulky right perihilar mass lesion as before, without acute cardiopulmonary disease. Dictated by: Bennie Hernandez M.D. on 05/02/2016 at 19:35 PROCEDURE: ABDOMEN WITH AND WITHOUT CONTR FINDINGS: Image quality: Multiple sequences are degraded by patient respiratory motion. Lung bases: There is trace basal right pleural effusion. Heart size is normal, status post median sternotomy. Solid organs: There is diffuse hepatomegaly, with innumerable hypoenhancing hepatic lesions in the right and left hepatic lobes. Gallbladder contains no gallstones or biliary sludge. Biliary system is non dilated. Pancreas is normal in morphology. No adrenal nodules. Both kidneys demonstrate normal size and enhancement, without hydronephrosis. Nodes and vessels: No retroperitoneal or mesenteric adenopathy by size criteria. Aorta and inferior vena cava are normal in size. Bowel and peritoneum: Unenhanced bowel loops are normal in caliber. There is trace free abdominal fluid. Bones and soft tissues: No ventral hernias. Bone marrow is normal in overall signal. IMPRESSION: 1. Findings consistent with innumerable widespread metastases throughout the liver, with resultant hepatomegaly. 2. Trace basal right pleural effusion, possibly malignant. Dictated by: Bennie Hernandez M.D. on 05/02/2016 at 19:45 PROCEDURE: BRAIN WITH AND WITHOUT CONTRAST CSF Spaces: Basal cisterns are patent. No extra-axial fluid collections. Ventricles are normal in size and shape. Brain: No midline shift. No intracranial bleeds or masses. No abnormal intracranial enhancement. There is mild periventricular and deep white matter chronic small vessel ischemic change. The brainstem appears normal. Diffusion-weighted images demonstrate no acute ischemic insults. No chronic ischemic insults. Normal intravascular flow voids are present. Skull and face: Calvarial marrow is normal in background signal. However, several small T1 hypointense marrow space occupying lesions are noted within the clivus. Orbits appear normal. Sinuses: Sinuses and mastoids appear clear. IMPRESSION: 1. No intracranial metastases identified. 2. Findings suspicious for several small bony metastases in the clivus. As such, consider further evaluation with whole-body bone scan. 3. Mild periventricular and deep white matter chronic small vessel ischemic change. Dictated by: Bennie Hernandez M.D. on 04/28/2016 at 12:19 Assessment & Plan 55-year-old female with small cell lung cancer with liver metastases, type II diabetes, and coronary artery disease presents as a transfer from [facility] for inpatient chemotherapy; Dr. Hartmann following. 1. Small cell right upper lobe lung cancer, present on admission, acute - Management per Dr. Hartmann oncology - Post chemotherapy: Aloxi 0.25mg IV x 1 dose, Emend 150mg IV x 1 dose, Cisplatin 130mg x 1 dose, Etopside 175mg daily x 3 doses - Oxygen as needed, patient currently on 2 L nasal cannula - Pain control with Percocet - Requested records from the OSH and records were reviewed, it appears she was there for Hyperglycemia. No cardiac work up is available - [facility] called due to suspicion for a pneumothorax and a Left decubitus was ordered per their request. The read on that x-ray ruled out pneumothorax. -Continue on day 3 of chemotherapy infusion: She completed the therapy 2. Generalized weakness and malaise, present on admission, ongoing - Likely secondary to 1 and 3. - Continue supportive care, monitor I's and O's for fluid resuscitation needs 3. Metastatic disease of the liver, present on admission, ongoing - Transaminases elevated per documentation from [facility]. - CMP with morning labs 4. Type II diabetes mellitus, present on admission, chronic, active -- A1C 6.2 from records in last december - Patient recently started on Humulin, Januvia, fenofibrate, glimepiride, and Lantus discontinued - Currently on 11 units of lantus with sliding scale. - We will monitor blood sugars 5. Acute exacerbation of congestive heart failure, present on admission, acute on chronic - 40 mg Lasix daily 6. Thrush, present on admission, acute - Continue clotrimazole 10 mg troches 5 times daily 7. Hypokalemia: Potassium 20 mg PO QD due to lasix home medication> She is given 40 meq more this AM 8. Bleeding from PICC line site: We discontinued the enoxaparin. Contacted Dr. Ewing from oncology due to concern for any possible side effects that may be causing bleeding he felt that it was Plavix that the patient was on nontender she came here to [facility] that resulted in her bleeding issues. Dr. Jordan he did not feel there is any need to stop infusion. He thought that if need be we could give her some platelets and can keep continuing the current infusion. 9. Large hematoma over the left antecubital area: US venous ultrasound of left upper extremity is ordered: Negative for DVT 10. Acute renal injury: NSS fluids were provided. Ibuprofen and lisinopril were discontinued: Improving 11. Hypocalcemia: Patient is noted to be hypocalcemic today 1 g of IV calcium gluconate given: Follow up labs tomorrow 12. Hypokalemia: Patient is noted to be hypokalemic today. IV and by mouth potassium is given 13. Jaundice: This is associated with her liver stasis because no obvious solution can be found at this time as she malaise done in hopes of making her feel better. Consider talking to Dr. Niya mcdermott regarding this new development. If he has no concerns she can still be discharged with possible hospice care 14. Acute on chronic Anemia and anemia: The due to recent blood loss, chronic disease. Iron panel, folate/B12, Stool guaiac is ordered. Acute on chronic Anemia and anemia: The due to recent blood loss, chronic disease. Stool guaiac is ordered. She received nuelasta by Dr. Hartmann. 15. Acute on chronic renal failure: Due to poor renal function, she was started on fluids yesterday. Renal function is improving Chronic, stable problems: 16 . Poor Functional status present on admission: Ordered TSH, T4, lipid panel. Consider nutrition consult, palliative care consult.: Started her on thyroid supplement. 17. Concern for Adrenal effects of her malignancy: Cortisol levels are ordered to check for adrenal function and came back elevated: Consider discussing with Dr. Hartmann. Coronary artery disease - Continue metoprolol tartrate 50 mg twice a day, lisinopril 5 mg daily, Plavix 75 mg daily, and furosemide 40 mg by mouth daily. EKG showed sinus rhythm today : Plavix and enoxaparin are held for chemo. Consider restarting once her bleeding stabilizes. Furosemide was stopped due to poor renal function Constipation. EKGs are heard - Continue docusate sodium Hyperlipidemia - Continue atorvastatin 10 mg daily: Lipid panel is ordered GERD - Continue Protonix 40 mg by mouth twice a day Chronic atrial fibrillation: Per Dr. Hartmann, new onset in Apr. Ordered EKG: Normal sinus rhythm When necessary antiemetic, when necessary bowel, Tylenol when necessary DVT prophylaxis SCD Patient is admitted under inpatient status with expected length of stay greater than 2 midnights due to severity of presenting symptoms, risk of adverse event, and complexity of treatment plan. GI Prophylaxis: Not indicated VTE Prophylaxis: Sub-Q Enoxaparin VTE Mechanical Devices: Intermittant Pneumatic CD Resuscitation Status: CPR: Attempt Resuscitation Susy Obrien DO May 11, 2016 12:17 Susy Obrien DO May 11, 2016 12:17
[2016-05-11 13:20] LABS: INR 1.32 ratio
[2016-05-11 13:56] LABS: Unsaturated Iron Binding < 16.8 ug/dL
[2016-05-11] MEDS ORDERED: 0.9% Sodium Chloride 250 ML ONE (15:04)
[2016-05-11 15:10] VITALS: BP 100/64; PULSE 86; RESP 12
[2016-05-11 15:29] VITALS: BP 104/65; PULSE 85; RESP 12
[2016-05-11 18:11] VITALS: BP 96/65; PULSE 86; RESP 20
[2016-05-11 20:22] VITALS: BP 101/63; PULSE 86; RESP 18; O2SAT 97
[2016-05-11] MEDS ORDERED: Insulin GLARgine 100 Unit/mL Syringe SUBQ SCH (21:00)
[2016-05-12] MEDS: Insulin Human REGular 300 Unit/3 mL Inj SUBQ SCH ×4 (04:05→21:29)
[2016-05-12] MEDS: 0.9% Sodium Chloride 1,000 ML IV SCH ×2 (04:06→15:41)
[2016-05-12] MEDS: oxyCODONE-Acetamin 5-325 mg Tablet PO PRN ×2 (04:19→16:32)
[2016-05-12 04:53] LABS: Mean Corpuscular Hemoglobin 30.4 pg (27.0-35.0); Mean Corpuscular Volume 92.7 fL (81-100)
[2016-05-12 05:14] VITALS: BP 107/67; PULSE 66; RESP 16; O2SAT 94
[2016-05-12 05:21] LABS: Bilirubin, Direct 4.5 mg/dL (0.0-0.3)
[2016-05-12 05:27] LABS: Magnesium 1.8 mg/dL (1.6-2.6)
--- NOTE | 2016-05-12 05:39 | NUR ---
skin care Continuing with Q2 hour turns side to side; small open areas just above gluteal cleft, open to air with calmoseptine to assist with healing. Pt reports improved energy and appetite after receiving blood products, assists with turns as much as she is able. Hourly rounding ongoing.
[2016-05-12] MEDS ORDERED: Calcium GLUCOnate 10% 1 Gm/50 mL NS IV ONE ×4 (06:01→13:10)
[2016-05-12] MEDS ORDERED: Potassium Chloride 20 mEq SR Tablet PO ONE ×2 (06:01→08:20)
[2016-05-12] MEDS: Clotrimazole Troche 10 mg Tablet MT SCH ×5 (06:25→21:20)
[2016-05-12] MEDS: Pantoprazole 40 mg ER24 Tablet PO SCH ×2 (06:25→16:31)
[2016-05-12 08:08] LABS: Hepatitis A Antibody IgM Negative (Negative); Hepatitis B Core Antibody IgM Negative (Negative)
[2016-05-12] MEDS ORDERED: Potassium Chloride Inj 30 MEQ in Dextrose 5% 100 ML IV ONE (08:20)
[2016-05-12 08:27] VITALS: BP 143/79; PULSE 92; RESP 12; O2SAT 96
[2016-05-12] MEDS: Potassium Chloride 20 mEq SR Tablet PO SCH (09:11)
[2016-05-12 09:23] VITALS: PULSE 90
--- OUTSIDE RECORDS SUMMARY | 2016-05-12 10:23 | XMS | Continuity of Care Document ---
Author Author [facility] Address Unknown Phone Unavailable Care Team Providers Care Biochemistry Professor Name Role Phone Nata Spann MD Unavailable Insurance Providers Payer Name Policy Number Subscriber Name Relationship HEALTHCARE MANAGEMENT [id number] CARLEEN SHEIKH Self Advance Directives Directive Response Recorded Date/Time Code Status Full code 05/02/16 10:50pm Do You Have an Advanced Directive for Health Care? 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 Unknown 04/25/16 Active Peripheral edema Unknown 04/25/16 Active Elevated procalcitonin Unknown 04/25/16 Active Atrial fibrillation with RVR Unknown 04/28/16 Active Primary small cell carcinoma of right lung Unknown 04/28/16 Active Atrial flutter Unknown 04/28/16 Active Hyperglycemia due to type 2 diabetes mellitus Unknown 05/01/16 Active Hyperglycemia Unknown 05/02/16 Active Lung cancer Unknown 05/02/16 Active Failure to thrive Unknown 05/02/16 Active Medications Current Home Medications Medication Dose Units Route Directions Days/Qty Instructions Start Date ACETAMINOPHEN (TYLENOL EXTRA STRENGTH) 500 MG TAB 1,000 MG ORAL 3 times daily Atorvastatin Calcium 20 MG TABLET 10 MG ORAL At bedtime Take 1/2 tablet each evening CLOPIDOGREL BISULFATE (PLAVIX) 75 MG TABLET 75 MG Oral Every day CLOTRIMAZOLE 10 MG NEETU 10 MG ORAL 5 times daily for THRUSH 30 ONE DISSOLVED IN MOUTH UP TO FIVE TIMES A DAY FOR THRUSH 04/30/16 DOCUSATE SODIUM 100 MG CAPSULE 100 MG ORAL As needed as needed for CONSTIPATION FERROUS SULFATE (IRON) 325 MG TABLET 325 MG ORAL Every day FUROSEMIDE (LASIX) 40 MG TABLET 40 MG ORAL Every day 30 Take 1 tablet by mouth daily. INSULIN HUMAN ISOPHANE (NPH)/I (Humulin 70/30) 100 UNIT/1 ML VIAL 30 UNITS SUB-Q Daily with breakfast 30 05/06/16 INSULIN HUMAN ISOPHANE (NPH)/I (Humulin 70/30) 100 UNIT/1 ML VIAL 15 UNITS SUB-Q EVERY DAY WITH PM MEAL 30 05/06/16 LISINOPRIL 5 MG TABLET 5 MG ORAL Every day Metoprolol Tartrate 50 MG TABLET 50 MG ORAL Twice daily 60 04/29/16 PANTOPRAZOLE SODIUM (PROTONIX) 40 MG TABLET.DR 40 MG ORAL Twice daily Take one tablet twice daily in am & pm for reflux/heartburn Past Home Medications Medication Directions Ordered Status Acetaminophen (Tylenol Extra Strength) 500 Mg Cap Cap, 500 Mg Oral Q4H PRN as needed for PAIN/FEVER Unknown Discontinued Albuterol Sulfate (Ventolin Hfa) 90 Mcg/Puff Hfa.aer.ad Hfa.aer.ad, 2 Puff Inhalation Q4H PRN as needed for SOB/WHEEZING Unknown Discontinued Amiodarone Hcl (Cordarone) 200 Mg Tablet Tablet, 200 Mg Oral Twice daily with meals Unknown Discontinued Amoxicillin/Potassium Clav (Augmentin) 875 Mg/125 Mg Tablet Tablet, 875 Mg Oral Twice daily Unknown Discontinued Aspirin (Aspirin Ec) 81 Mg Tablet. Tablet.dr, 81 Mg Oral Every day Discontinued Benzonatate 100 Mg Capsule Capsule, 100 Mg Oral TID PRN as needed for COUGH Unknown Discontinued Calcium Carbonate/Vitamin D3 (Oyster Shell Calcium-Vit D Tab) 1 Each Tablet Tablet, 0 Oral * UK DOSE/FREQUENCY Unknown Discontinued Fenofibrate 160 Mg Tablet Tablet, 160 Mg Oral Every day Unknown Discontinued Flutic/Salmet 250/50 Mcg (Advair) 250 Mcg/50 Mcg Blst.w.dev Blst.w.dev, 1 Puff Inhalation Twice daily Unknown Discontinued Glimepiride 2 Mg Tablet Tablet, 2 Mg Oral Twice daily with meals 04/16/16 Discontinued Hydromorphone Hcl (Dilaudid) 2 Mg Tablet Tablet, 1-2 Mg Oral Q4H PRN as needed for PAIN Unknown Discontinued Hydromorphone Hcl (Dilaudid) 2 Mg Tablet Tablet, 2 Mg Oral Q4H PRN as needed for PAIN Unknown Discontinued Ibuprofen (Motrin / Advil) 600 Mg Tab Tab, 200 Mg Oral Twice daily Unknown Discontinued Insulin Glargine 10ML (Lantus) 100 Unit/1 Ml Vial Vial, 10 U Sub-Q At bedtime Unknown Discontinued Loratadine (Claritin) 10 Mg Tablet Tablet, 10 Mg Oral Unknown Discontinued Metoclopramide Hcl 10 Mg Tablet Tablet, 10 Mg Oral Every 6 hours as needed for NAUSEA Unknown Discontinued Mucinex , Unknown Discontinued Multivitamin/Minerals (Thera M Plus Tablet) 1 Each Tablet Tablet, 0 Oral * DOSE/FREQUENCY Unknown Discontinued Metformin Hydrochloride (Glucophage) 850 Mg Tablet Tablet, Mg Oral Twice daily with meals Unknown Discontinued Metoprolol Tartrate 25 Mg Tablet Tablet, 25 Mg Oral Twice daily Unknown Discontinued Oxycodone Hcl/Acetaminophen (Percocet) 5 Mg/325 Mg Tablet Tablet, 1 Tab Oral Every 6 hours as needed for PAIN IN BACK 04/30/16 Discontinued Phenylephrine Hcl/Acetaminophn (Sudafed Pe Sinus Headache Cplt) 1 Each Tablet Tablet, 1 Tab Oral Unknown Discontinued Potassium Chloride (K-Tab Er) 20 Meq Tablet.er Tablet.er, 20 Meq Oral Twice daily Unknown Discontinued Potassium Chloride 20 Meq Tab.er.prt Tab.er.prt, 20 Meq Oral Every day Discontinued Sitagliptin Phosphate (Januvia) 100 Mg Tablet Tablet, 100 Mg Oral Every day Unknown Discontinued Vitamin C - (Vitamin C) 250 Mg Tablet Tablet, 0 Oral * DOSE/FREQUENCY Unknown Discontinued Vitamin E (Alpha-Tocopherol) 200 Unit Capsule Capsule, 0 Oral * DOSE/ FREQUENCY Unknown Discontinued Social History Problem Response Recorded Date Alcohol Use? Y 05/02/16 Support sources:+ Family, local 05/02/16 Able to participate in own care? N 05/02/16 Have help at home after discharge? Y 05/02/16 Prior to this admission, the patient lived:+ WITH FAMILY 05/02/16 Query Response Start Date Stop Date Smoking status:+ Former smoker Hospital Discharge Instructions : transfer to [facility] Plan of Care Discharge Date 05/06/16 Disposition [facility] () Instructions/Education Provided [facility] ED Instruction Forms Provided Nursing info - Transfer Prescriptions See Medications Section Care Plan and Goals See Discharge Instructions section Functional Status Query Response Date Recorded Mobility:+ Minimum assist, 1 person May 06, 2016 4:04pm Mobility:+ Bed mobility, assist May 06, 2016 4:04pm Calm, cooperative? Y May 04, 2016 7:49pm Allergies, Adverse Reactions, Alerts Allergen Type Severity Reaction Status Last Updated iodine Allergy Intermediate HIVES HEAD TO TOE. Active 05/01/16 glyburide Allergy Unknown Active 05/01/16 metformin Allergy Unknown Active 05/01/16 broccoli Allergy Unknown Active 05/01/16 REYNOLDS PEPPER AdvReac Mild GI TRACT REACTION, DIARRHEA Active 10/21/14 POLLEN Allergy Severe RESPIRATORY, AFFECTS ASTHMA Active 10/20/13 TREE Allergy Severe AFFECTS ASTHMA Active 10/20/13 Immunizations Name Date Given Type Pneumococcal vaccine?*+ Yes Historical Date:* Historical Influenza? (Seasonal)+ Yes Historical Date:* 12/2015 Historical Lst Tetanus:* UNK Historical Date: UNK Historical Pneumococcal conjugate PCV 13 04/10/16 Administered Vital Signs Vital Reading Collection Date/Time Result Blood Pressure 05/06/16 4:07pm 154/77 Patient Temperature 05/06/16 4:07pm 97.9 Temperature Source 05/06/16 4:07pm ORAL Respiratory Rate 05/06/16 4:07pm 24 Pulse Rate 05/06/16 4:07pm 106 Bedside Pulse Oximetry 05/06/16 8:15am 93 Height 05/06/16 6:22am 5 ft 2 in 157.48 cm Weight 05/06/16 6:22am 159 lb 72 kg Body Mass Index 05/06/16 6:22am 29.0 kg/m2 Blood Pressure Source 04/28/16 8:10pm RUE LYING Bedside Oxygen Availability 04/28/16 8:10pm ROOM AIR Pulse Location 04/28/16 8:10pm MONITOR Results Laboratory Results Test Name Result Units Flags Reference Collection Date/Time Result Date/ Time Comments Blood Urea Nitrogen 26.0 mg/dL H 7-17 05/06/16 5:30am 05/06/16 6:30am Creatinine 1.00 mg/dL 0.52-1.04 05/06/16 5:30am 05/06/16 6:30am Estimated GFR (MDRD) >60.0 mL/min >60 05/06/16 5:30am 05/06/16 6:30am ESTIMATED GFR: TO ESTIMATE THE GLOMERULAR FILTRATION RATE FOR - AMERICANS, MULTIPLY THE RESULTS PROVIDED BY 1.21. ESTIMATED GFR (EGFR) VALUES <60 ml/min/1.73m2 ARE INDICATIVE OF CHRONIC KIDNEY DISEASE. BUN/Creatinine Ratio 26.0 5.8-27.8 05/06/16 5:30am 05/06/16 6:30am Calcium Level 7.2 mg/dL L 8.4-10.2 05/06/16 5:30am 05/06/16 6:30am Glucose Level 125 mg/dL # H 79-115 05/06/16 5:30am 05/06/16 6:30am Magnesium Level 1.6 mg/dL 1.6-2.3 05/06/16 5:30am 05/06/16 6:30am Sodium Level 137 mmol/L 137-145 05/06/16 5:30am 05/06/16 6:30am Potassium Level 2.8 mmol/L L 3.5-5.1 05/06/16 5:30am 05/06/16 6:30am RESULT CALLED PERSON OR PLACE CONTACTED: NRPAMELA WAS THE RESULT READ-BACK? YES DATE: 05/06/16 TIME: 06 Chloride Level 89.0 mmol/L L 98-107 05/06/16 5:30am 05/06/16 6:30am Carbon Dioxide Level 41.0 mmol/L *H 22-30 05/06/16 5:30am 05/06/16 6: 30am RESULT CALLED PERSON OR PLACE CONTACTED: NRPAMELA WAS THE RESULT READ-BACK? YES DATE: 05/06/16 TIME: 0628 White Blood Count 13.2 X10^3/uL H 4.5-11 05/06/16 5:30am 05/06/16 5: 40am Red Blood Count 3.97 X10^6/uL L 4.0-5.2 05/06/16 5:30am 05/06/16 5:40am Hemoglobin 12.0 G/DL 12-16 05/06/16 5:30am 05/06/16 5:40am Hematocrit 36.9 % 36-46 05/06/16 5:30am 05/06/16 5:40am Mean Corpuscular Volume 93.0 FL 80-100 05/06/16 5:30am 05/06/16 5:40am Mean Corpuscular Hemoglobin 30.3 PG 26-34 05/06/16 5:30am 05/06/16 5: 40am Mean Corpuscular Hemoglobin Concent 32.6 % 31-37 05/06/16 5:30am 5:40am Red Cell Distribution Width 16.3 % H 11.6-14.8 05/06/16 5:30am 05/06/16 5:40am Platelet Count 112 X10^3/uL L 150-400 05/06/16 5:30am 05/06/16 5:40am Neutrophils % 93.6 % H 50-75 05/06/16 5:30am 05/06/16 5:40am Absolute Neutrophil 25868 /uL H 5218-8423 05/06/16 5:30am 05/06/16 5: 40am Lymphocytes % 2.3 % L 25-40 05/06/16 5:30am 05/06/16 5:40am Monocytes % 4.0 % 3-14 05/06/16 5:30am 05/06/16 5:40am Eosinophils % 0.0 % L 2-4 05/06/16 5:30am 05/06/16 5:40am Basophils % 0.1 % 0-2 05/06/16 5:30am 05/06/16 5:40am Segmented Neutrophils % (Manual) 90 % H 38-70 05/04/16 9:00am 05/04/16 10:06am Band Neutrophils % 3 % 3-7 05/04/16 9:00am 05/04/16 10:06am Neutrophils # (Manual) 53257 /uL H [id number] 05/04/16 9:00am 05/04/16 10 :06am NEUT # calculated from automated WBC count and manual differential. Accuracy subject to inherent limitations of manual differential procedure. Lymphocytes % (Manual) 1 % L 25-45 05/04/16 9:00am 05/04/16 10:06am Monocytes (Manual) 3 % 2-11 05/04/16 9:00am 05/04/16 10:06am Myelocytes % 3 % H -0 05/04/16 9:00am 05/04/16 10:06am N/A 100 05/04/16 9:00am 05/04/16 10:06am Anisocytosis 1+ H 05/04/16 9:00am 05/04/16 10:06am Stomatocytes 1+ H 05/04/16 9:00am 05/04/16 10:06am Urine WBC 1-5/HPF 1-5/HPF 05/02/16 9:38pm 05/02/16 10:04pm Urine RBC 0-1/HPF 1-5/HPF 05/02/16 9:38pm 05/02/16 10:04pm Urine Squamous Epithelial Cells 0-1/HPF 1-5/HPF 05/02/16 9:38pm 05/02 10:04pm Urine Culture Indicated CULT. NOT INDICATED 05/02/16 9:38pm 10:04pm Urine will only be cultured if it meets one or more of the following criteria: (a) Specifically requested by the provider (b) Greater than 5 WBC's with <5 epithelial cells/hpf. (c) Positive nitrite. (Only if <5 epithelial cells/hpf). (d) Positive leukocyte esterase. (Only if <5 epithelial cells/hpf). NOTE: Greater than 5 epithelial cells/hpf indicates contamination which is not suitable for culture. B-Type Natriuretic Peptide 921.0 pg/ml H <100 05/02/16 7:50pm 05/02/16 8 :15pm BNP levels increase with age in the general population with the highest values seen in individuals greater than 75 years of age. Troponin I 0.012 ng/mL 0.01-0.034 05/02/16 7:50pm 05/02/16 8:29pm Reference Ranges: Upper Reference Limit 0.034 ng/mL AMI Diagnostic Cutoff 0.120 ng/mL Total Creatine Kinase 183 U/L H 30-135 05/02/16 7:50pm 05/02/16 8:18pm Creatine Kinase MB 2.28 ng/mL 0-2.37 05/02/16 7:50pm 05/02/16 8:32pm Creatine Kinase MB Relative Index 1.2 % 05/02/16 7:50pm 05/02/16 8: 32pm IF TOTAL CK IS GREATER THAN 250 U/L & CK-MB IS GREATER THAN 5 NG/ML, NORMAL CK-MB RELATIVE % INDEX=1.5-5.0 Alkaline Phosphatase 317 U/L H 38-126 05/02/16 7:50pm 05/02/16 8:18pm CONSISTENT WITH PREVIOUS RESULTS FOR TEST. Total Bilirubin 2.1 mg/dL H 0.2-1.3 05/02/16 7:50pm 05/02/16 8:18pm Total Protein 4.8 g/dL L 6.3-8.2 05/02/16 7:50pm 05/02/16 8:18pm Albumin 2.6 g/dL L 3.5-5.0 05/02/16 7:50pm 05/02/16 8:18pm Globulin 2.2 g/dL 1.7-4.1 05/02/16 7:50pm 05/02/16 8:18pm Albumin/Globulin Ratio 1.2 1-2.8 05/02/16 7:50pm 05/02/16 8:18pm Aspartate Amino Transf (AST/SGOT) 92 IU/L H 14-36 05/02/16 7:50pm 8:18pm Alanine Aminotransferase (ALT/SGPT) 145 IU/L H 9-52 05/02/16 7:50pm 05/16 8:18pm Procalcitonin 21.64 ng/mL H <0.49 05/02/16 7:50pm 05/02/16 8:26pm <0.5 ng/mL Systemic infection (sepsis) not likely >0.5 - <2.0 ng/mL Systemic infection possible and should be correlated with patient's clinical condition. >2.0 - <10.0 ng/mL Systemic infection is likely. High risk for progression to sever sepsis/ or septic shock. >10.0 ng/mL Important systemic inflammoratory response almost exclusively due to severe bacterial sepsis or septic shock Neonates <48 hours old have increased PCT levels without corresponding to sepsis. Red Cell Morphology Comment MORPHOLOGY NORMAL NORMAL 05/02/16 7:50pm 05/02/16 8:13pm Lactic Acid Level 1.9 mmol/L 0.7-2.1 05/02/16 7:50pm 05/02/16 8:11pm Prothrombin Time 11.3 SECONDS 10.1-12.7 05/02/16 7:50pm 05/02/16 8: 20pm International Ratio (Anticoag Ther) 1.0 0.9-1.3 05/02/16 7:50pm 05/02 8:20pm INR THERAPUTIC RANGES: PREVENTION AND TREATMENT OF THROMBOEMBOLISM ASSOCIATED WITH: AF, PE, VT, POST-NM, BIPROSTHETIC HEART VALVES 2.0-3.0 MECHANICAL HEART VALVES 2.5-3.5 Activated Partial Thromboplast Time 25 # L 26.4-36.2 05/02/16 7:50pm 8:22pm Adjunctive to Coronary Thrombosis Heparin (0.1 - 0.3 UI/mL)=46.5 - 63.2 seconds Heparin (0.3 - 0.7 UI/mL)=63.2 - 102.2 seconds. Phosphorus Level 3.0 mg/dL 2.5-4.5 05/01/16 6:30pm 05/01/16 6:54pm Serum Osmolality 304 mosm/kg 260-310 05/01/16 6:30pm 05/05/16 3:00pm Blood Gas Specimen Type LT BRACHIAL 05/01/16 6:10pm 05/01/16 6: 18pm N/A RESP. THERAPIST 05/01/16 6:10pm 05/01/16 6:18pm FiO2 0.21 05/01/16 6:10pm 05/01/16 6:18pm Arterial Blood pH 7.55 H 7.35-7.45 05/01/16 6:10pm 05/01/16 6:18pm Blood Gas PCO2 36.1 mmHg 35-45 05/01/16 6:10pm 05/01/16 6:18pm Blood Gas PO2 56 mmHg L 80-105 05/01/16 6:10pm 05/01/16 6:18pm Blood Gas Base Excess 9.0 mmol/L H -2-3 05/01/16 6:10pm 05/01/16 6:18pm Blood Gas Total CO2 33 mmol/L H 05/01/16 6:10pm 05/01/16 6:18pm Blood Gas HCO3 31.7 mmol/L H 05/01/16 6:10pm 05/01/16 6:18pm Above Infr Vena Cava O2 Saturation 92.0 % L 95-100 05/01/16 6:10pm 05/01 6:18pm MRSA Surveillance Initial Negative for MRSA Negative 04/28/16 10:37am 04/28/16 11:54am Free Thyroxine 1.53 ng/dL 0.78-2.19 04/28/16 7:20am 04/28/16 6:15pm Thyroid Stimulating Hormone 3rd Gen 0.32 uIU/L L 0.47-4.68 04/28/16 7: 20am 04/28/16 5:51pm Urine Color YELLOW 04/25/16 5:19pm 04/25/16 6:38pm Urine Appearance CLEAR 04/25/16 5:19pm 04/25/16 6:38pm Urine Specific [place] 1.020 1.000-1.035 04/25/16 5:19pm 04/25/16 6: 38pm Urine pH 6.5 4.5-8.0 04/25/16 5:19pm 04/25/16 6:38pm Urine Protein 3+ H NEGATIVE 04/25/16 5:19pm 04/25/16 6:38pm Urine Glucose (UA) 2+ H NORMAL 04/25/16 5:19pm 04/25/16 6:38pm Urine Ketones TRACE H NEGATIVE 04/25/16 5:19pm 04/25/16 6:38pm Urine Urobilinogen 0.2 NORMAL 04/25/16 5:19pm 04/25/16 6:38pm Urine Bilirubin NEGATIVE NEGATIVE 04/25/16 5:19pm 04/25/16 6:38pm Urine Blood 2+ H NEGATIVE 04/25/16 5:19pm 04/25/16 6:38pm Urine Leukocyte Esterase NEGATIVE NEGATIVE 04/25/16 5:19pm 04/25/16 6 :38pm Urine Nitrite NEGATIVE NEGATIVE 04/25/16 5:19pm 04/25/16 6:38pm D-Dimer Quantitative (PE/DVT) 534.00 ng/mL H <230 04/14/16 9:10am 11:10am Influenza Types A & B (PCR) (LAB) NEGATIVE N 04/09/16 9:43pm 10:16pm Microbiology Results Procedure Source Result Collection Date/Time Result Date/Time Blood Culture Blood No growth. 05/02/16 8:10pm 05/03/16 8:11pm Procedures Procedure Status Date Provider(s) EXCISION OF RIGHT LOWER LUNG LOBE, PERC APPROACH, DIAGN Completed 04/15/16 Manjit Posey MD, Jamie MD Encounters Encounter Location Arrival/Admit Date Discharge/Depart Date Attending Provider Discharged [facility] 05/02/16 6:48pm 05/06/16 5:00pm Mike Patterson MD Registered [facility] 05/02/16 5:28pm Ace Hartmann MD Departed [facility] 05/01/16 5:09pm 05/01/16 10:08pm ALEXANDER Gilbert Registered [facility] 04/30/16 1:00pm Ace Hartmann MD Discharged [facility] 04/28/16 7:03am 04/29/16 5:53pm [facility] 4[facility] 04/25/16 11:12pm Hossein Rosa MD Registered [facility] 04/18/16 10:12am Nata Spann MD Discharged [facility] 04/12/16 1:32pm 04/16/16 10:45am Toyin Spann MD Discharged [facility] 04/09/16 7:55pm 04/11/16 1:50pm Mesfin Alexandra MD Encounter Diagnosis Onset Date Hyperglycemia Lung cancer Failure to thrive
[2016-05-12 10:26] VITALS: BP 144/74; PULSE 87; RESP 12; O2SAT 97
[2016-05-12] MEDS ORDERED: Lactulose 20 Gm/30 mL 30 mL Syrup TUBE SCH (10:45)
--- NOTE | 2016-05-12 10:56 | NUR ---
Palliative Care Palliative Care received verbal order from Dr Bardales 05/12/16 to assist with goals of care. 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 She was admitted 05/06/16 from [facility] for inpatient chemotherapy. Dr Hartmann is her oncologist. Elsa Cavazos (daughter) [phone] Palliative Care to follow. Nu Caldwell
[2016-05-12] MEDS: Lactulose 20 Gm/30 mL 30 mL Syrup PO SCH ×2 (11:23→21:19)
--- NOTE | 2016-05-12 11:33 | NUR ---
Palliative care note D/A: Referral received today from Dr. Bardales for assistance with GoC. Pt is seen by Dr. 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 Hospitalized in Apr at [facility] for PNA and lung CA was diagnosed. Since that time, she has lost strength and function rapidly. Notes indicate that pt has been hospitalized 4 times since Apr. She was most recently admitted to [facility] from 05/03/16 to 05/06/16 and then transferred to [facility] for chemo. Pt case has been staffed at tumor board. Pt currently lives with her dtr Xin and grandson in the [facility] in [place]. Notes indicate that part of the reason is that pt is no longer able to maneuver stairs. Elsa can be reached at [phone]. Review of Dr. Hartmann notes indicate that he discussed code status with pt and she has elected to be DNAR with limited interventions. He indicates that POLST is completed. Will need to verify completion of POLST and also inquire as to DPOA for pt dtr. Dr. Hartmann estimates that pt has about a 10% chance of response to chemo. Pt spouse 15 years ago in an MVA. She quit using ETOH 23.5 years ago and stopped use of tobacco products [address] Calderon has consulted with Dr. Hartmann who agrees to PC consult to discuss pt current treatment and expectations for treatment outcomes. This worker, along with Dr. Calderon and medical student Enmanuel Celestine. Pt laying in bed, appears quite weak and with a very flat affect. Pt begins then to answer all questions with a yes, leading Dr. Calderon to further question her to determine her mental status. Pt not able to answer where she was born or where she grew up. 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 Dr. Calderon to check on use of lactulose. Discuss participation of her daughter in regards to further care discussions regarding goals of care. Pt agrees to this. This worker discusses with Elsa, her dtr. She works from 0630 to 1500 normally and estimates she could be here by 1600. She kindly asks her boss to be able to get off early today and is able to leave work at 1400. She estimates she will be here by about 1430 to 1500. This worker and Dr. William to meet with her at that time. Case discussed with Betty KING, mary anne. P: Palliative care to continue to follow. Bertha VASQUEZ, CCM
--- NOTE | 2016-05-12 11:46 | PCM.CONPAL ---
Date of Service May 12, 2016 Date of Hospital Admission: May 06, 2016 at 17:57 Date of Palliative Consult: May 12, 2016 Requesting Provider: Junior Bardales MD Comment: Consult also discussed/approved with Dr. Hartmann in phone call today. Reason Palliative Care Consult: Goals of Care Discussion Reason for Consultation Advanced Lung Cancer with Liver Metastasis and progressive hepatic encephalopathy. Palliative Care Recommendation Summary of palliative recommendations: -Symptom management (Pain/Encephalopathy) -Continue Percocet and add IV Morphine/Dilaudid when needed. -Lactulose started today by Dr. Bardales -Poor prognosis and plans for discussion of such are discussed with Dr. Hartmann today. -Dr. Hartmann will see her tomorrow. -DPOA/Advanced Directives/POLST -Confirmed DNR per oncology note -Family/emotional support -She confirms that she trusts her daughter Elsa to make decisions for her in the context of her prior wishes for care at end of life. 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 Hartmann following. She was admitted to [facility] on 05/02/2016 for hyperglycemia, possible pneumonia, acute exacerbation of CHF, and generalized weakness. Patient currently states that she is tired of being tired. She wants to get well and get home. She is having pain in her bottom and back. She currently has a headache that she rates at 5 out of 10, these occur occasionally for her. She is having consistent shortness of breath and central chest heaviness for a couple of days. She is feeling nauseous in reports vomiting daily. She also has back pain and pain in her tailbone. She also complains of being generally weak. Since her first Chemotherapy last week her mental status has deteriorated as her Bilirubin and LFT's have climbed. Her heme parameters are also showing signs of pancytopenia. This is the expected response, in the expected window of time after her particular type of chemotherapy, but this also adds to the poor prognosis and makes recovery to baseline, or improvement from baseline, very unlikely. Past Medical History Significant PMH Noted: 1. Small cell carcinoma of right lung 2. Ischemic cardiomyopathy 3. Coronary artery disease 4. Diabetes mellitus type II uncontrolled 5. Emphysema 6. History of MRSA infection in right leg 7. Peptic ulcer disease 8. Anemia 9. Pulmonary fibrosis 10. Metastatic disease to the liver 11. Atrial fibrillation 12. Congestive heart failure Surgical History 1. Appendectomy 2. CABG 3. Right lower extremity arterial stent 4. Small bowel obstruction with surgical intervention Social History Occupation: Hx Alcohol Use: Yes (quit years ago) Hx Substance Use: No Hx Tobacco Use: Yes Smoking Status: Former Smoker ([id number] history) Years of Smokin Living Arrangement: with Family (daughter Elsa, son-in-law, and grandson at the [facility] due to patient's inability to climb stairs) Social Support: Current encephalopathy precludes indepth review of social history. Additional details will be added after meeting with randall Hunter later today. Palliative Performance Scale PPS Patient Status: Current PPS Ambulation: Totally Bed PPS Activity: Unable to do any activity PPS Self-Care: Total Care PPS Intake: Normal or reduced PPS Conscious Level: Full or drowsey, +/- confusion Performance Scale: 20% ADLs ADL Patient Status: Current ADL Ambulation: Totally Bed ADL Dressing: Total care ADL Feeding: Total care ADL Hygene/bathing: Total care ADL Transfers: Total care Allergy Allergies Reviewed: Yes Medications Current Medications: Current Medications Sodium Chloride 1,000 ml @ 100 mls/hr Q10H IV Last administered on 05/12/16 04 :06; Admin Dose 100 MLS/HR; Start 05/10/16 at 12:25 Potassium Chloride 20 meq DAILYWM PO Last administered on 05/12/16 09:11; Admin Dose 20 MEQ; Start 05/12/16 at 08:00 Tamsulosin HCl 0.4 mg DAILY PO Last administered on 05/12/16 09:11; Admin Dose 0.4 MG; Start 05/11/16 at 11:25 Fluoxetine HCl 10 mg DAILY PO Last administered on 05/12/16 09:12; Admin Dose 10 MG; Start 05/11/16 at 12:15 Insulin Human Regular * Low Dose Insulin Algori... Q6 SUBQ Last administered on 05/12/16 09:12; Admin Dose 2 UNIT; Start 05/11/16 at 14:30 Insulin Glargine 11 unit HS SUBQ Last administered on 05/11/16 21:39; Admin Dose 11 UNIT; Start 05/11/16 at 21:00; Stop 05/12/16 at 08:16; Status DC Levothyroxine Sodium 25 mcg DAILYAC PO Last administered on 05/12/16 06:25; Admin Dose 25 MCG; Start 05/12/16 at 07:30 Insulin Glargine 14 unit HS SUBQ; Start 05/12/16 at 21:00 Lactulose 20 gm BID TUBE; Start 05/12/16 at 10:45; Stop 05/12/16 at 11:12; Status DC Lactulose 20 gm BID PO Last administered on 05/12/16 11:23; Admin Dose 20 GM; Start 05/12/16 at 11:12 Scheduled Atorvastatin (Lipitor) 20 Mg Tablet 20 MG PO DAILY Clopidogrel (Clopidogrel) 75 Mg Tablet 75 MG PO DAILY Fenofibrate Nanocrystallized (Fenofibrate) 145 Mg Tablet 145 MG PO DAILY Furosemide (Furosemide) 40 Mg Tablet 40 MG PO DAILY Insulin Glargine (Lantus U100 Insulin Vial) 100 Unit/Ml Vial 1 UNIT SUBQ HS Levofloxacin (Levofloxacin) 250 Mg Tablet 250 MG PO DAILY Metoprolol Tartrate (Metoprolol Tartrate) 25 Mg Tablet 25 MG PO BID Pantoprazole DR (Pantoprazole DR) 40 Mg Tablet.dr 40 MG PO BID Potassium Chloride ER (Potassium Chloride ER) 20 Meq Tablet.er 20 MEQ PO DAILY TAKE WITH FOOD Sitagliptin Phos (Januvia) 100 Mg Tablet 100 MG PO DAILY Scheduled PRN oxyCODONE-Acetaminophen 5-325 mg (oxyCODONE-Acetaminophen 5-325 mg) 1 Each Tablet 1-2 TAB PO Q6H PRN PRN For Pain Miscellaneous Medications Clotrimazole 2% (Gyne-Lotrimin 3 2%) 21 Gm Cream.appl 21 GM VAGINAL Nystatin (Nyamyc) 15 Gm Powder 15 GM TP Objective Findings Exam Vital Sign - Last Date Time Temp Pulse Resp B/P Pulse Ox O2 Delivery O2 Flow Rate FiO2 05/12/16 10:26 36.3 87 12 144/74 97 Nasal Cannula 2.00 05/07/16 04:59 98 Intake and Output 05/11/16 05/11/16 05/12/16 Cumulative From/Thru 15:00 23:00 07:00 05/06/16 18:10 - 05/12/16 06:24 Intake Total 1142 ml 1778 ml 9074 ml Output Total 1502 ml 1400 ml 9052 ml Balance -360 ml 378 ml 22 ml Intake Oral 240 ml 570 ml 2150 ml IV Total 602 ml 1208 ml 6419 ml Packed Cells 300 ml 300 ml Platelets 205 ml Output Urine Total 1500 ml 1400 ml 9050 ml Stool Total 2 ml 2 ml # Bowel Movements 1 2 3 General: Alert/Oriented x3 (But very drowsy and disengages mid sentence) HEENT: Atraumatic Lungs: Normal Air Movement Abdomen: Distended Neuro: Arousable, Follows Commands Extremities: Edema (2+) Skin: Other (Deep purple bruises on arms. ) Lab/Diagnostics Lab and Imaging results reviewed in detail in EMR. Patient/Family Conference Members Present Family Members Present Pending conference today with daughter Elsa Discussion/Goals of Care Time spent Total time [65] minutes; >50% face to face with patient and/or family, providing counselling regarding plans and recommendations, and in care coordination with his/her medical teams. Katy Calderon MD May 12, 2016 11:46 Discussion/Goals of Care Discussion FAMILY UNDERSTANDING OF DISEASE: DISEASE PROGRESSION/EVIDENCE OF DECLINE: SYMPTOM BURDEN: GOALS: HOPES/WORRIES: FAMILY WISHES/VALUES: Do you want to be told truth about his illness, even if unpleasant? Does family want to know prognosis when it can be predicted, to better guide treatment decisions? What is quality of life for the patient: to be able to interact with their loved ones and friends, to travel, not to be bedbound, to be independent in taking care of themselves: Would patient choose quality of life over quantity of life? Would comfort care be more important than being awake and alert? If patient is no longer alert and aware because of their illness, would you choose comfort for them? Palliative Care counselled: Time spent Total time [ ] minutes; >50% face to face with patient and/or family, providing counselling regarding plans and recommendations, and in care coordination with his/her medical teams. I also spent an additional [ ] minutes counseling for advanced care planning with the patient/the patients family/the surrogate decision maker. Kayt Calderon MD May 12, 2016 11:46
[2016-05-12] MEDS ORDERED: Calcium GLUCO 10% (Gm) 1 Gm/10 mL 50 mL Inj IV ONE (13:05)
--- NOTE | 2016-05-12 13:11 | NUR ---
K+ Robert / Calcium Pt with K+ of 2.8 K+ rider ordered. Per rider protocol, telemetry placed. Pt also received 20mEq of scheduled PO K+. Pt tolerated infusion and at 1300, infusion complete. Labs drawn at 1130 for other electrolyte checks and at ~1250, K+ of 3.3 and Ca of 6.7*. MD aware and additional Ca infusion supplement ordered. Tele dc'd. Per , recheck labs in AM rather than q6 serials - labs cancelled. Care continues.
[2016-05-12 14:32] VITALS: BP 148/80; PULSE 90; RESP 12; O2SAT 92
--- NOTE | 2016-05-12 15:53 | NUR ---
Palliative care note [facility] D/A: Met with pt dtr Elsa, pt sleeping for most of conference. Elsa very realistic and aware of her mothers prognosis. She indicates that her mother told her that she would want to do chemo if she responds and otherwise-does not wish chemo. Elsa aware her mother may be at eol. In discussion of possible hospice, Elsa notes that her mom had indicated she did not wish to at home. Pt and her dtr and gr son live together in a small hotel unit, two rooms and a kitchenette and pt did not wish for her grandson to find her . Pt with a very close relationship with her 8 year old grandson. Elsa brings in many drawings that her son had done for pt over weekend. He does well in school and is connected weekly with the school counselor following the of his grandfa-pt spouse about 1.5 years ago. Discussed possibility of placement with SNF and Hospice House being discussed. Elsa would like SNF at this point due to proximity needs for her and rest of family. She mentions that when pt was at [facility], prior to transfer to [facility], [facility] had been pursuing a one time contract between facility and [facility]. A to pay for 80 % of SNF coverage. Discussed possible Medicaid referral. Have left message for [facility] regarding both Medicaid and as well as Wei/one time contract. Dr. Stewart rea POL previously done with Dr. Hartmann but that did not include date. Elsa signs for pt. Pt already has DPOA paperwork in chart giving medical decision making garcia to Elsa. Pt does not have financial DPOA paperwork or a will done and Elsa is not on pt accounts at her financial institutions. Elsa is given PC handout as well as card. Also discussed visit from Elsa son and pt grandson. Pt has been opposed to this but son is asking and worried about his grandmother. Encouraged Elsa to support son in his decisions and desires as he is old enough to decide if he would wish to visit. Esla also recalls how things were handled when her father and does not wish to repeat some of those occurrences. She also plans on discussing with his school counselor. P: Palliative care to continue to follow. Bertha VASQUEZ, CCM
[2016-05-12] MEDS: Alum-Mag Hydrox-Simeth 30 mL Suspension PO PRN (16:32)
--- NOTE | 2016-05-12 16:44 | NUR ---
NUTRITION FOLLOW-UP: ASSESS: 55 YO F admit with progressive debilitation with small cell lung CA with mets to liver; on chemo therapy. Pt currently refusing po intake. Pt with thrush, on medication. Palliative care consult today. PMHX: DM, Afib,CHF DIET: Heart Healthy Diabetic. Glucerna and milk on all trays. Refusing PO intake most meals x 6 days. LABS: Reviewed. K+ 3.3, BUN 55, Cr 1.11, Glu 295, AST 274, ALT 289, Alk Phos 364, Ammonia 100,Alb 2.3. MEDS: Reviewed. GI: BM x 2 (05/12) WEIGHT: 75 kg . Admit wt: 72.4 kg BMI: 29.0 SKIN: Small open area above gluteal cleft, 3 lesions around anus EST.NEEDS: CANCER Kcal: [id number] (25-30 kcals/kg BW) Pro 70-110 (1.0-1.5 g/kg BW) NUTRITION DIAGNOSIS: (1) Inadequate oral intake related to decreased appetite as evidenced by poor po intake x 6 days--PERSISTS. INTERVENTION: (1) Continue to send glucerna and milk on all trays. MONITOR/EVALUATE: PO intake, lab, nutritional status and POC. Follow per high nutritional risk guidelines.
--- NOTE | 2016-05-12 17:31 | PCM.PALLBR ---
Palliative Care Recommendation Summary of palliative recommendations: -Symptom management (Pain/Encephalopathy) -Continue Percocet and add IV Morphine/Dilaudid when needed. -Lactulose started today by Dr. Bardales -Poor prognosis and plans for discussion of such are discussed with Dr. Hartmann today. -Dr. Hartmann will see her tomorrow. Complains of discomfort but not pain -DPOA/Advanced Directives/POLST -Confirmed DNR per oncology note--POLST completed and signed and copied DNR/DNI / no FT -Family/emotional support -She confirms that she trusts her daughter Elsa to make decisions for her in the context of her prior wishes for care at end of life. -Spiritual support -have spiritual support Problems: End of Life Preferences DNR/DNI, limited- reviewed with Elsa that this would change to comfort if she goes on hospice Goals of Care Will monitor status over the next few days. Dr. Hartmann will see her tomorrow. If indeed no response to therapy will then make arrangements regarding placement Resuscitation Status Resuscitation Status: DNR/DNI:Do Not Resuscitate/Intubate Limited Interventions: Medications and IV Fluid POLST Updates/Changes Artificially Admin Nutrition: No Artifical Nutrition by Tube POLST Discussed with: Health Care Agent (DPOAHC) POLST Review Outcome: New Form Completed . Advanced Care Planning Address: POLST Symptom management: Delirium Total time 60 minutes; >50% face to face with patient and/or family, providing counselling regarding plans and recommendations, and in care coordination with his/her medical teams. I also spent an additional [ ] minutes counseling for advanced care planning with the patient/the patients family/the surrogate decision maker. copies to: Ace Hartmann MD Palliative Brief Note Date of Service May 12, 2016 . Family care conference with patient and her daughter Darshana who is also DURABLE POWER OF PHARMACEUTICAL LABORATORY TECHNICIAN for healthcare. Patient with newly diagnosed small cell CA of the lung with note of right upper lobe mass and mediastinal involvement as well as extensive liver metastases and probably new small lesions in clivus bone. She has some SVC compression. She is under the care of Dr. Hartmann had chemotherapy last week with worsening liver function tests development of encephalopathy and pancytopenia. His past history of pneumonia early April which was when she was diagnosed with her malignancy. She also has diabetes and CAD diagnosis of emphysema and pulmonary fibrosis. She has a greater than 80 year pack history of smoking but discontinued this when she had CABG a few years ago Discussion primarily with her daughter in that patient has no short-term memory responds positively to any question with no depth of understanding. Daughter is aware of severity of disease was her very low likelihood of responding to her chemotherapy. Discussion around supporting patient if she does not respond to her chemotherapy at which point she would then be looking at comfort care presumably under hospice. She presently lives in a motel room with her daughter and grandson. She requests that she not be with her grandson who is 8 when she dies. Her just over a year ago of alcoholic cirrhosis- in the grandson did have some difficulty with this. Darshana has been in touch with his school counselor in the past and she will be notifying them of recent events [facility] [address] completed but not dated- so really done to include everything that was on her original form DO NOT RESUSCITATE limited interventions with addition of no feeding tube. This is signed completed and copied for records. Her daughter is well versed in severity of illness and believes her mother would need to be in ECF or hospice house due to their present living situation Her daughter has no paperwork completed except for DPOA HC and AD Her mother has not completed financial DPOA etc. Her mother is now too encephalopathic to complete such paperwork. Nat William MD May 12, 2016 17:30
--- NOTE | 2016-05-12 18:56 | PCM.PNMED ---
Subjective Date of Service May 12, 2016 Subjective Patient very lethargic today. Closes eyes and sleep multiple times during conversation. Ammonia elevated. Start lactulose today. Afebrile. Continues to have deranged liver function test and elevated bilirubin Exam Vital Signs Vital Sign - Last Date Time Temp Pulse Resp B/P Pulse Ox O2 Delivery O2 Flow Rate FiO2 05/12/16 14:32 36.4 90 12 148/80 92 Nasal Cannula 2.00 05/07/16 04:59 98 Intake and Output 05/11/16 05/11/16 05/12/16 Cumulative From/Thru 14:59 22:59 06:59 05/06/16 18:10 - 05/12/16 06:24 Intake Total 1142 ml 1778 ml 9074 ml Output Total 1502 ml 1400 ml 9052 ml Balance -360 ml 378 ml 22 ml Intake Oral 240 ml 570 ml 2150 ml IV Total 602 ml 1208 ml 6419 ml Packed Cells 300 ml 300 ml Platelets 205 ml Output Urine Total 1500 ml 1400 ml 9050 ml Stool Total 2 ml 2 ml # Bowel Movements 1 2 3 Exam Gen.: Laying in bed, hirsuitism is present, appears jaundiced, lethargic HEENT: Normocephalic, atraumatic Extremities: Hematoma appears to be resolving over her posterior left arm. Right arm has PICC line and it is covered in dressings. Heart: Regular rate and rhythm no S3-S4 Lungs: Difficult to auscultate due to body habitus, no crackles or wheezing anteriorly. Posteriorly she is very diminished right greater than left Psych: Mood depressed, affect resigned Neuro: Nonfocal that is IVs and Medications Medications Reviewed: Medications were reviewed in detail Lab and Diagnostics Result Diagram: 05/12/16 0415 05/12/16 1130 X-Rays, CTs and MRIs PROCEDURE: PE STUDY (CTA CHEST) INDICATIONS: 55 year-old female with metastatic small cell lung carcinoma, with hypoxia and shortness of breath. COMPARISON: [facility], CT, THORAX WITH CONTRAST, 04/15/2016, 9:49. FINDINGS: Image quality: Excellent. Pulmonary arteries: Pulmonary arteries are normal in size, and demonstrate no intraluminal filling defects to suggest central pulmonary embolism. Lungs and pleura: 4.5 x 4.3 cm medial right upper lobe mass is again noted, enveloping the right upper lobe pulmonary artery with mild extrinsic narrowing. Mass also causes greater than 85% extrinsic narrowing of the superior vena cava. Small dependent right pleural effusion is now present, along with right lower lobe compressive atelectasis. No pneumothorax. Central and peripheral airways are patent. Mediastinum: Heart size is normal, without pericardial effusion. Patient is status post coronary artery bypass grafting. Bulky precarinal adenopathy is unchanged. Thoracic aorta is normal in caliber and enhancement. Esophagus is normal in caliber, without hiatal hernia. Bones and chest wall: No suspicious bony lesions. Ribs and thoracic spine appear intact throughout. Thyroid gland is normal in size. No axillary or supraclavicular adenopathy. Abdomen: Visualized upper abdominal solid organs appear normal in the early arterial phase of enhancement. IMPRESSION: 1. No evidence for central pulmonary embolism. 2. Medial right upper lobe 4.5 cm mass again noted, with extrinsic mass effect on the superior vena cava and right upper lobe pulmonary artery. No current findings of faby superior vena cava syndrome. 3. Interval development of small basal right pleural effusion, as well as patchy right lower lobe compressive atelectasis. 4. Bulky precarinal mediastinal adenopathy as before. Dictated by: Bennie Hernandez M.D. on 05/02/2016 at 20:57 PROCEDURE: CHEST 1 VIEW IMPRESSION: Bulky right perihilar mass lesion as before, without acute cardiopulmonary disease. Dictated by: Bennie Hernandez M.D. on 05/02/2016 at 19:35 PROCEDURE: ABDOMEN WITH AND WITHOUT CONTR FINDINGS: Image quality: Multiple sequences are degraded by patient respiratory motion. Lung bases: There is trace basal right pleural effusion. Heart size is normal, status post median sternotomy. Solid organs: There is diffuse hepatomegaly, with innumerable hypoenhancing hepatic lesions in the right and left hepatic lobes. Gallbladder contains no gallstones or biliary sludge. Biliary system is non dilated. Pancreas is normal in morphology. No adrenal nodules. Both kidneys demonstrate normal size and enhancement, without hydronephrosis. Nodes and vessels: No retroperitoneal or mesenteric adenopathy by size criteria. Aorta and inferior vena cava are normal in size. Bowel and peritoneum: Unenhanced bowel loops are normal in caliber. There is trace free abdominal fluid. Bones and soft tissues: No ventral hernias. Bone marrow is normal in overall signal. IMPRESSION: 1. Findings consistent with innumerable widespread metastases throughout the liver, with resultant hepatomegaly. 2. Trace basal right pleural effusion, possibly malignant. Dictated by: Bennie Hernandez M.D. on 05/02/2016 at 19:45 PROCEDURE: BRAIN WITH AND WITHOUT CONTRAST CSF Spaces: Basal cisterns are patent. No extra-axial fluid collections. Ventricles are normal in size and shape. Brain: No midline shift. No intracranial bleeds or masses. No abnormal intracranial enhancement. There is mild periventricular and deep white matter chronic small vessel ischemic change. The brainstem appears normal. Diffusion-weighted images demonstrate no acute ischemic insults. No chronic ischemic insults. Normal intravascular flow voids are present. Skull and face: Calvarial marrow is normal in background signal. However, several small T1 hypointense marrow space occupying lesions are noted within the clivus. Orbits appear normal. Sinuses: Sinuses and mastoids appear clear. IMPRESSION: 1. No intracranial metastases identified. 2. Findings suspicious for several small bony metastases in the clivus. As such, consider further evaluation with whole-body bone scan. 3. Mild periventricular and deep white matter chronic small vessel ischemic change. Dictated by: Bennie Hernandez M.D. on 04/28/2016 at 12:19 Assessment & Plan 55-year-old female with small cell lung cancer with liver metastases, type II diabetes, and coronary artery disease presents as a transfer from [facility] for inpatient chemotherapy; Dr. Hartmann following. #Acute hepatic encephalopathy due to liver metastases, POA -Ammonia 100, started on lactulose today #. Small cell right upper lobe lung cancer, present on admission, acute - Management per Dr. Hartmann oncology - Post chemotherapy: Aloxi 0.25mg IV x 1 dose, Emend 150mg IV x 1 dose, Cisplatin 130mg x 1 dose, Etopside 175mg daily x 3 doses - Oxygen as needed, patient currently on 2 L nasal cannula - Percocet switched to oxycodone due to liver failure - Radialogy called due to suspicion for a pneumothorax and a Left decubitus was ordered per their request. The read on that x-ray ruled out pneumothorax. -Completed 3 day of chemotherapy infusion: - Dr. Hartmann will see her tomorrow #. Generalized weakness and malaise, present on admission, ongoing - Likely secondary to 1 and 3. - Continue supportive care, monitor I's and O's for fluid resuscitation needs #. Metastatic disease of the liver, present on admission, ongoing - Transaminases elevated #. Type II diabetes mellitus, present on admission, chronic, active -- A1C 6.2 from records in last december - Patient recently started on Humulin, Januvia, fenofibrate, glimepiride, and Lantus discontinued - Currently on 11 units of lantus with sliding scale. Increased to 14 units at bedtime - We will monitor blood sugars #. Acute exacerbation of congestive heart failure, present on admission, acute on chronic - 40 mg Lasix daily #. Thrush, present on admission, acute - Continue clotrimazole 10 mg troches 5 times daily #. Hypokalemia: Potassium 20 mg PO QD due to lasix home medication> She is given 40 meq more this AM #. Bleeding from PICC line site: We discontinued the enoxaparin. Contacted Dr. Ewing from oncology due to concern for any possible side effects that may be causing bleeding he felt that it was Plavix that the patient was on nontender she came here to [facility] that resulted in her bleeding issues. Dr. Jordan he did not feel there is any need to stop infusion. He thought that if need be we could give her some platelets and can keep continuing the current infusion. #. Large hematoma over the left antecubital area: US venous ultrasound of left upper extremity is ordered: Negative for DVT #. Acute renal injury: NSS fluids were provided. Ibuprofen and lisinopril were discontinued: Improving #. Hypocalcemia: Patient is noted to be hypocalcemic today 1 g of IV calcium gluconate given: Follow up labs tomorrow #. Hypokalemia: Patient is noted to be hypokalemic today. IV and by mouth potassium is given #. Jaundice: This is associated with her liver stasis because no obvious solution can be found at this time as she malaise done in hopes of making her feel better. Consider talking to Dr. Niya mcdermott regarding this new development. If he has no concerns she can still be discharged with possible hospice care #. Acute on chronic Anemia and anemia: The due to recent blood loss, chronic disease. Iron panel, folate/B12, Stool guaiac is ordered. Acute on chronic Anemia and anemia: The due to recent blood loss, chronic disease. Stool guaiac is ordered. She received nuelasta by Dr. Hartmann. #. Acute on chronic renal failure: Due to poor renal function, she was started on fluids yesterday. Renal function is improving Chronic, stable problems: #. Poor Functional status present on admission: Ordered TSH, T4, lipid panel. Consider nutrition consult, palliative care consult.: Started her on thyroid supplement. #Coronary artery disease - Continue metoprolol tartrate 50 mg twice a day, lisinopril 5 mg daily, Plavix 75 mg daily, and furosemide 40 mg by mouth daily. EKG showed sinus rhythm today : Plavix and enoxaparin are held for chemo. Consider restarting once her bleeding stabilizes. Furosemide was stopped due to poor renal function #Constipation. - Continue docusate sodium #Hyperlipidemia - Continue atorvastatin 10 mg daily: Lipid panel is ordered #GERD - Continue Protonix 40 mg by mouth twice a day #Chronic atrial fibrillation: Per Dr. Hartmann, new onset in Apr. Ordered EKG: Normal sinus rhythm When necessary antiemetic, when necessary bowel, Tylenol when necessary DVT prophylaxis SCD Disposition: Pending clinical course Prognosis guarded, consulted palliative. await Dr Hartmann recommendations GI Prophylaxis: Not indicated VTE Prophylaxis: Sub-Q Enoxaparin VTE Mechanical Devices: Intermittant Pneumatic CD Resuscitation Status: DNR/DNI:Do Not Resuscitate/Intubate Limited Interventions: Medications and IV Fluid Junior Bardales MD May 12, 2016 18:56 VTE Mechanical Devices: Intermittant Pneumatic CD Resuscitation Status: DNR/DNI:Do Not Resuscitate/Intubate Limited Interventions: Medications and IV Fluid Junior Bardales MD May 12, 2016 18:56
[2016-05-12] MEDS: Insulin GLARgine 100 Unit/mL Syringe SUBQ SCH (21:21)
[2016-05-12 22:09] VITALS: BP 139/73; PULSE 93; RESP 16; O2SAT 96
[2016-05-13] VITALS (9 sets, daily range): BP systolic 102–149; BP diastolic 68–81; PULSE 79–137; RESP 9–20; O2SAT 95–100
[2016-05-13] MEDS: 0.9% Sodium Chloride 1,000 ML IV SCH (01:40)
[2016-05-13] MEDS: Insulin Human REGular 300 Unit/3 mL Inj SUBQ SCH ×4 (03:00→21:16)
[2016-05-13] MEDS: Albuterol 2.5 mg/3 mL Inhalation Solution NEB PRN (04:18)
--- NOTE | 2016-05-13 05:05 | NUR ---
Discomfort/Pain Pt reports feeling hot, uncomfortable sitting upright and pain during repositioning-given 1x percocet. Increased cough this shift and productive clearing of throat- given breathing treatment per request,remains on 2Lnc. Pt slowly answers questions but is rousable. Picc dressing leaking and changed gauze and coband applied this shift, infusing NS at 100 for poor PO intake. Care continues
[2016-05-13] MEDS: Clotrimazole Troche 10 mg Tablet MT SCH ×6 (06:00→22:35)
[2016-05-13 06:50] LABS: Mean Corpuscular Hemoglobin 29.8 pg (27.0-35.0); Mean Corpuscular Volume 91.8 fL (81-100)
[2016-05-13 07:13] LABS: Vitamin B12 >1999 pg/mL (211-946)
[2016-05-13] MEDS ORDERED: Potassium Chloride 20 mEq SR Tablet PO ONE (08:05)
[2016-05-13] MEDS ORDERED: Potassium Chloride Inj 30 MEQ in Dextrose 5% 100 ML IV ONE ×7 (08:05→16:00)
[2016-05-13] MEDS ORDERED: Calcium GLUCO 10% (Gm) 1 Gm/10 mL 50 mL Inj IV ONE (08:05)
[2016-05-13] MEDS ORDERED: Calcium GLUCO 10% (Gm) Inj 2 GM in 0.9% Sodium Chloride 100 ML IV ONE (08:20)
[2016-05-13 08:54] LABS: MONOCYTES % (AUTO) 0 % (4-12)
[2016-05-13 09:42] LABS: BASOPHILS % (AUTO) 2 % (0-3); EOSINOPHILS % (AUTO) 1 % (0-5); NEUTROPHILS % (AUTO) 69 % (40-74)
--- NOTE | 2016-05-13 09:49 | PCM.PNPALL ---
Date of Service May 13, 2016 Date of Hospital Admission: May 06, 2016 at 17:57 Date of Palliative Consult: May 12, 2016 Palliative Care Recommendation Summary of palliative recommendations: -Symptom management (Pain/Encephalopathy) -Continue Percocet and add IV Morphine/Dilaudid when needed. -Lactulose appears to be effective with clearer mental processing/alertness noted today. -Poor prognosis: Dr. William discussed with Dr. Hartmann today. -Dr. Hartmann and hospitalist team managing day to day symptoms. -Complains of discomfort but not pain -Potential for soon discharge to Hospice House or other out of hospital location for Hospice care to be d/w Oncology today. -DPOA/Advanced Directives/POLST -Confirmed DNR per oncology note--POLST completed and signed and copied DNR/DNI / no FT -Family/emotional support -She confirms that she trusts her daughter Elsa to make decisions for her in the context of her prior wishes for care at end of life. -Family meeting yesterday with Palliative care MD/OCCASIONAL CAREGIVER and her daughter Elsa. See Dr. William's note. -Spiritual support -Wishes to have acetylene gas compressor support and believes she is already on their visit list. Will confirm. Problems: End of Life Preferences DNR/DNI, limited- reviewed with Elsa yesterday, that this would change to comfort if she goes on hospice Goals of Care Will monitor status over the next few days. Dr. Hartmann saw her today and relayed his assessment of worsened status/prognosis than previously given. If indeed no response to therapy, with chemo induced fabrizio approaching, will then make arrangements regarding placement. Hospice House is the most appropriate placement for her potentially complicated end of life care. SNF would be less ideal. Home to the shared motel room is undesirable for several reasons, including her desire to not in the presence of her young grandchild, who shares the motel room with her and her daughter. Resuscitation Status Resuscitation Status: DNR/DNI:Do Not Resuscitate/Intubate Limited Interventions: Medications and IV Fluid POLST Updates/Changes Artificially Admin Nutrition: No Artifical Nutrition by Tube POLST Discussed with: Health Care Agent (DPOAHC) POLST Review Outcome: New Form Completed . Pain: None Symptom management: Drowsiness/sleepiness Palliative Subjective Brief History 55-year-old female with small cell lung cancer with liver metastases, type II diabetes, and coronary artery disease presents as a transfer from [facility] for inpatient chemotherapy; Dr. Hartmann following. She was admitted to [facility] on 05/02/2016 for hyperglycemia, possible pneumonia, acute exacerbation of CHF, and generalized weakness. Patient currently states that she is tired of being tired. She wants to get well and get home. She is having pain in her bottom and back. She currently has a headache that she rates at 5 out of 10, these occur occasionally for her. She is having consistent shortness of breath and central chest heaviness for a couple of days. She is feeling nauseous in reports vomiting daily. She also has back pain and pain in her tailbone. She also complains of being generally weak. Since her first Chemotherapy last week her mental status has deteriorated as her Bilirubin and LFT's have climbed. Her heme parameters are also showing worsening signs of pancytopenia. This is the expected response, in the expected window of time after her particular type of chemotherapy, but this also adds to the poor prognosis and makes recovery to baseline, or improvement from baseline, very unlikely. Patient/Family Concerns Addressed in Family meeting with Dr. William and Bertha Liu yesterday Subjective She is resting in bed, looking puffy and exhausted. She is able to answer simple questions without drifting off midsentence. She denies pain and discomfort. She requests spiritual counselor/acetylene gas compressor support. WBC 1.7 Hgb 7.6 Platelets 42 Palliative Performance Scale PPS Patient Status: Current PPS Ambulation: Totally Bed PPS Activity: Unable to do any activity PPS Self-Care: Total Care PPS Intake: Normal or reduced PPS Conscious Level: Full or drowsey, +/- confusion Performace Scale: 20% ADLs ADL Patient Status: Current ADL Ambulation: Totally Bed ADL Dressing: Total care ADL Feeding: Total care ADL Hygene/bathing: Total care ADL Transfers: Total care Objective Findings Exam Vital Sign - Last Date Time Temp Pulse Resp B/P Pulse Ox O2 Delivery O2 Flow Rate FiO2 05/13/16 06:15 36.6 84 15 149/81 97 Nasal Cannula 2.00 05/07/16 04:59 98 Intake and Output 05/12/16 05/12/16 05/13/16 Cumulative From/Thru 15:00 23:00 07:00 05/06/16 18:10 - 05/13/16 00:30 Intake Total 1917 ml 64689 ml Output Total 1750 ml 55043 ml Balance 167 ml 189 ml Intake Oral 600 ml 2750 ml IV Total 1317 ml 7736 ml Packed Cells 300 ml Platelets 205 ml Output Urine Total 1750 ml 13449 ml Stool Total 2 ml # Bowel Movements 3 General: Alert/Oriented x3 (improved alertness and ability to focus on topics/ questions) HEENT: Atraumatic Lungs: Normal Air Movement Abdomen: Distended Neuro: Arousable, Follows Commands Extremities: Edema (2+) Skin: Other (Deep purple bruises on arms. ) Addtional Information Very puffy throughout. Lab/Diagnostics Lab and Imaging results reviewed in detail in EMR. Patient/Family Conference Discussion/Goals of Care Summary of visit yesterday May 12, 2016 . Family care conference with patient and her daughter Darshana who is also DURABLE POWER OF HOSPICE PLAN ADMINISTRATOR for healthcare. Patient with newly diagnosed small cell CA of the lung with note of right upper lobe mass and mediastinal involvement as well as extensive liver metastases and probably new small lesions in clivus bone. She has some SVC compression. She is under the care of Dr. Hartmann had chemotherapy last week with worsening liver function tests development of encephalopathy and pancytopenia. His past history of pneumonia early April which was when she was diagnosed with her malignancy. She also has diabetes and CAD diagnosis of emphysema and pulmonary fibrosis. She has a greater than 80 year pack history of smoking but discontinued this when she had CABG a few years ago Discussion primarily with her daughter in that patient has no short-term memory responds positively to any question with no depth of understanding. Daughter is aware of severity of disease was her very low likelihood of responding to her chemotherapy. Discussion around supporting patient if she does not respond to her chemotherapy at which point she would then be looking at comfort care presumably under hospice. She presently lives in a motel room with her daughter and grandson. She requests that she not be with her grandson who is 8 when she dies. Her just over a year ago of alcoholic cirrhosis- in the grandson did have some difficulty with this. Darshana has been in touch with his school counselor in the past and she will be notifying them of recent events [address] completed but not dated- so really done to include everything that was on her original form DO NOT RESUSCITATE limited interventions with addition of no feeding tube. This is signed completed and copied for records. Her daughter is well versed in severity of illness and believes her mother would need to be in ECF or hospice house due to their present living situation Her daughter has no paperwork completed except for DPOA HC and AD Her mother has not completed financial DPOA etc. Her mother is now too encephalopathic to complete such paperwork. Nat William MD Time spent Total time [45] minutes; >50% face to face with patient and/or family, providing counselling regarding plans and recommendations, and in care coordination with his/her medical teams. Katy Calderon MD May 13, 2016 09:49 Katy Calderon MD May 13, 2016 09:49
[2016-05-13] MEDS ORDERED: Magnesium Sulf 2 Gm/50mL Water 2 GM in IV Premix 1 EACH IV ONE (09:55)
[2016-05-13] MEDS ORDERED: Cefepime Inj 1,000 MG in Dextrose 5% Minibag Plus 50 ML IV SCH (10:00)
[2016-05-13] MEDS: Vancomycin Dose per Pharmacist XX SCH (10:00)
[2016-05-13] MEDS ORDERED: 0.9% Sodium Chloride 250 ML ONE ×2 (10:10→15:26)
--- NOTE | 2016-05-13 10:30 | DRSVH ---
PROCEDURE: X-RAY CHEST ONE VIEW, PORTABLE ([id number]) INDICATIONS: neutropenia TECHNIQUE: One view of the chest was acquired. COMPARISON: [facility], CR, XR CHEST 1VW, 05/07/2016, 11:53. [facility], CR, XR CHEST DECUB LT, 05/07/2016, 13:54. FINDINGS: Surgical changes and devices: Median sternotomy wires are redemonstrated, several which are fractured . Stable positioning of right PICC. Lungs and pleura: Large right upper lobe mass redemonstrated and small layering right pleural effusio n appears unchanged. Scarring within the left lung base. Mediastinum: Mediastinal contours appear normal. Heart size is normal. Bones and chest wall: No suspicious bony lesions. Overlying soft tissues appear unremarkable. IMPRESSION: 1. Right upper lobe mass and layering right pleural effusion redemonstrated not significantly changed . Dictated by: Hernando SANDS Interpreted: Cari Morse MD on 05/13/2016 at 10:28 Transcribed by: SHELIA on 05/13/2016 at 10:30 Approved by: Cari Morse M.D. on 05/13/2016 at 17:27
[2016-05-13] MEDS: Lactulose 20 Gm/30 mL 30 mL Syrup PO SCH ×2 (10:33→20:30)
[2016-05-13] MEDS: Potassium Chloride 20 mEq SR Tablet PO SCH (10:33)
[2016-05-13] MEDS: Pantoprazole 40 mg ER24 Tablet PO SCH ×2 (10:33→16:30)
[2016-05-13] MEDS ORDERED: Diltiazem 5 mg/mL 5 mL Inj IVPUSH ONE ×2 (11:00→16:45)
[2016-05-13 12:09] LABS: APPEARANCE,URINE HAZY (CLEAR,HAZY); COLOR,URINE YELLOW (YELLOW); PH,URINE 5.5 (5.0-8.0)
[2016-05-13 12:10] LABS: OCCULT BLOOD,URINE LARGE (NEGATIVE); YEAST,URINE MANY (NONE SEEN)
[2016-05-13 12:11] LABS: ICTOTEST,URINE POSITIVE (Negative)
[2016-05-13 12:22] LABS: Magnesium 1.4 mg/dL (1.6-2.6)
[2016-05-13 12:23] LABS: TROPONIN T 0.05 ug/L (0.0-0.011)
--- NOTE | 2016-05-13 12:28 | NUR ---
Social work Note - Continued D.C planning DATABASE TECHNICIAN completed EMR review: Pt continues with treatment for her cancer - continues to be weak and require inpt treatment. Palliative care is following. DATABASE TECHNICIAN called [facility] to explore Medicaid application - DATABASE TECHNICIAN left message and will continue to follow. Plan: To [facility] Ad when medically stable for transfer. CHRISTINA Correa
--- NOTE | 2016-05-13 12:49 | NUR ---
Critical Labs/Meds/IV 0800: Lab results of Calcium = 6.6 and Potassium = 2.1; Hospitalist verbally informed at 0810. New orders received. 1220: Lab results of Potassium = 2.2 (post K+ rider) and Troponin = 0.050; [place] to Hospitalist at 1230. Addendum: 05/13/16 at 1330 by BRONSON GUADALUPE RN Pt lethargic with poor appetite. When breakfast arrived. Pt stating not hungry and not wanting to eat - stated she would try later. CNAs repositioned pt and on reassessment, pt still refusing. AM Medications scanned in late d/t pt not wanting to take. When stating ready to take meds, with multiple meds, meds that were able to be crushed were and were mixed with applesauce. Pt took one bite and then refused. Stating no ready and shaking her head for any additional bites of meds/applesauce. Unable to determine what all pt did receive d/t meds crushed. TELE/IV K+ and Ca++ Once tele place, K+ infusing. Per tech, Afib in 120-130s. Pt with K+ rider 05/12 and was stated JOSE RREnmanuel Green call to nursery nurseTOBI Green and requested she notify MD of patient change. Call back and stated MD notified with no current new orders. Pt with multiple IV abx and supplements to give. Blood culture from PICC obtained and UA from cath obtained - sent to lab prior to start of Vanco. D/t multiple IV medications and uncertainty of compatibilities, there is delay in some IV med orders. Addendum: 05/13/16 at 1331 by BRONSON GUADALUPE RN Pt c/o pain and nausea. Admin OT Zofran and call to MD requesting IVP pain medication and antiemetic. No response. RE: critical of K+ redraw - ordered add'l K+ riders. At 1330, pt stating "Im tired of being tired." Care continues.
[2016-05-13] MEDS ORDERED: Magnesium Sulf 4 Gm/100 mL H2O 4 GM in IV Premix 1 EACH IV ONE (13:15)
[2016-05-13] MEDS ORDERED: Filgrastim 480 mCg/1.6 mL Inj SUBQ SCH (15:00)
--- NOTE | 2016-05-13 15:05 | PCM.PNMED ---
Subjective Date of Service May 13, 2016 Subjective Patient continues to be lethargic. Has worsening dyspnea today. Went into A. fib with RVR rate in 130's. Lasix discontinued due to intractable hypokalemia. Pancytopenia worsened. Now with ANC 828, she received a Neulasta on 05/11. Afebrile. Blood culture and urine culture sent. Empiric antibiotics with cefepime and vancomycin started. Exam Vital Signs Vital Sign - Last Date Time Temp Pulse Resp B/P Pulse Ox O2 Delivery O2 Flow Rate FiO2 05/13/16 13:41 36.4 125 10 102/68 100 Nasal Cannula 2.00 05/07/16 04:59 98 Intake and Output 05/12/16 05/12/16 05/13/16 Cumulative From/Thru 15:00 23:00 07:00 05/06/16 18:10 - 05/13/16 00:30 Intake Total 1917 ml 09446 ml Output Total 1750 ml 43166 ml Balance 167 ml 189 ml Intake Oral 600 ml 2750 ml IV Total 1317 ml 7736 ml Packed Cells 300 ml Platelets 205 ml Output Urine Total 1750 ml 85937 ml Stool Total 2 ml # Bowel Movements 3 Exam Gen.: Laying in bed, appears jaundiced, lethargic, anasarca HEENT: Normocephalic, atraumatic Extremities: Hematoma appears to be resolving over her posterior left arm. Right arm has PICC line and it is covered in dressings. Heart: Irregular, tachycardic Lungs: Difficult to auscultate due to body habitus, no crackles or wheezing anteriorly. Posteriorly she is very diminished right greater than left Psych: Mood depressed, Neuro: Nonfocal IVs and Medications Medications Reviewed: Medications were reviewed in detail Lab and Diagnostics Result Diagram: 05/13/16 0550 05/13/16 1120 X-Rays, CTs and MRIs PROCEDURE: PE STUDY (CTA CHEST) INDICATIONS: 55 year-old female with metastatic small cell lung carcinoma, with hypoxia and shortness of breath. COMPARISON: [facility], CT, THORAX WITH CONTRAST, 04/15/2016, 9:49. FINDINGS: Image quality: Excellent. Pulmonary arteries: Pulmonary arteries are normal in size, and demonstrate no intraluminal filling defects to suggest central pulmonary embolism. Lungs and pleura: 4.5 x 4.3 cm medial right upper lobe mass is again noted, enveloping the right upper lobe pulmonary artery with mild extrinsic narrowing. Mass also causes greater than 85% extrinsic narrowing of the superior vena cava. Small dependent right pleural effusion is now present, along with right lower lobe compressive atelectasis. No pneumothorax. Central and peripheral airways are patent. Mediastinum: Heart size is normal, without pericardial effusion. Patient is status post coronary artery bypass grafting. Bulky precarinal adenopathy is unchanged. Thoracic aorta is normal in caliber and enhancement. Esophagus is normal in caliber, without hiatal hernia. Bones and chest wall: No suspicious bony lesions. Ribs and thoracic spine appear intact throughout. Thyroid gland is normal in size. No axillary or supraclavicular adenopathy. Abdomen: Visualized upper abdominal solid organs appear normal in the early arterial phase of enhancement. IMPRESSION: 1. No evidence for central pulmonary embolism. 2. Medial right upper lobe 4.5 cm mass again noted, with extrinsic mass effect on the superior vena cava and right upper lobe pulmonary artery. No current findings of faby superior vena cava syndrome. 3. Interval development of small basal right pleural effusion, as well as patchy right lower lobe compressive atelectasis. 4. Bulky precarinal mediastinal adenopathy as before. Dictated by: Bennie Hernandez M.D. on 05/02/2016 at 20:57 PROCEDURE: CHEST 1 VIEW IMPRESSION: Bulky right perihilar mass lesion as before, without acute cardiopulmonary disease. Dictated by: Bennie Hernandez M.D. on 05/02/2016 at 19:35 PROCEDURE: ABDOMEN WITH AND WITHOUT CONTR FINDINGS: Image quality: Multiple sequences are degraded by patient respiratory motion. Lung bases: There is trace basal right pleural effusion. Heart size is normal, status post median sternotomy. Solid organs: There is diffuse hepatomegaly, with innumerable hypoenhancing hepatic lesions in the right and left hepatic lobes. Gallbladder contains no gallstones or biliary sludge. Biliary system is non dilated. Pancreas is normal in morphology. No adrenal nodules. Both kidneys demonstrate normal size and enhancement, without hydronephrosis. Nodes and vessels: No retroperitoneal or mesenteric adenopathy by size criteria. Aorta and inferior vena cava are normal in size. Bowel and peritoneum: Unenhanced bowel loops are normal in caliber. There is trace free abdominal fluid. Bones and soft tissues: No ventral hernias. Bone marrow is normal in overall signal. IMPRESSION: 1. Findings consistent with innumerable widespread metastases throughout the liver, with resultant hepatomegaly. 2. Trace basal right pleural effusion, possibly malignant. Dictated by: Bennie Hernandez M.D. on 05/02/2016 at 19:45 PROCEDURE: BRAIN WITH AND WITHOUT CONTRAST CSF Spaces: Basal cisterns are patent. No extra-axial fluid collections. Ventricles are normal in size and shape. Brain: No midline shift. No intracranial bleeds or masses. No abnormal intracranial enhancement. There is mild periventricular and deep white matter chronic small vessel ischemic change. The brainstem appears normal. Diffusion-weighted images demonstrate no acute ischemic insults. No chronic ischemic insults. Normal intravascular flow voids are present. Skull and face: Calvarial marrow is normal in background signal. However, several small T1 hypointense marrow space occupying lesions are noted within the clivus. Orbits appear normal. Sinuses: Sinuses and mastoids appear clear. IMPRESSION: 1. No intracranial metastases identified. 2. Findings suspicious for several small bony metastases in the clivus. As such, consider further evaluation with whole-body bone scan. 3. Mild periventricular and deep white matter chronic small vessel ischemic change. Dictated by: Bennie Hernandez M.D. on 04/28/2016 at 12:19 Assessment & Plan 55-year-old female with small cell lung cancer with liver metastases, type II diabetes, and coronary artery disease presents as a transfer from [facility] for inpatient chemotherapy; Dr. Hartmann following. # Suspected neutropenic sepsis, acute,not poa -Patient has tachypnea, tachycardia, leukopenia/pancytopenia, worsening lethargy today -Blood culture sent, chest x-ray unchange -Markedly elevated pro-calcitonin at 13 -Started empirically on antibiotics with cefepime and vancomycin # Interactive hypokalemia,acute -20 meq in 1L at 75ml/h,gave 100 meq kcl IV today -Continue to monitor and replace -BMP and Mg q4h # Pancytopenia/neutropenia, acute,not poa -Patient received Neulasta on 05/11, verified from pharmacy -WBC 1.2, platelets 42, -Antiplatelets and heparin subcutaneous remain on hold # Acute hepatic encephalopathy due to liver metastases, POA -Ammonia 100, started on lactulose #. Small cell right upper lobe lung cancer, present on admission, acute - Management per Dr. Hartmann oncology - Post chemotherapy: Aloxi 0.25mg IV x 1 dose, Emend 150mg IV x 1 dose, Cisplatin 130mg x 1 dose, Etopside 175mg daily x 3 doses - Oxygen as needed, patient currently on 2 L nasal cannula - Percocet switched to oxycodone due to liver failure - Radialogy called due to suspicion for a pneumothorax and a Left decubitus was ordered per their request. The read on that x-ray ruled out pneumothorax. -Completed 3 day of chemotherapy infusion: - Spoke with Dr. Hartmann, he recommends treating her sepsis and electrolyte abnormalities. Will need to wait 1-2 weeks to see effects of chemotherapy #. Metastatic disease of the liver, present on admission, ongoing - Transaminases elevated #. Type II diabetes mellitus, present on admission, chronic, active -- A1C 6.2 from records in last december - Patient recently started on Humulin, Januvia, fenofibrate, glimepiride, and Lantus discontinued - Currently on 11 units of lantus with sliding scale. Increased to 14 units at bedtime - We will monitor blood sugars #. Acute exacerbation of congestive heart failure, present on admission, acute on chronic - On 40 mg Lasix daily. Discontinued due to intractable hypokalemia #Anasarca due to liver failure -Lasix on hold due to hypokalemia #. Thrush, present on admission, acute - Continue clotrimazole 10 mg troches 5 times daily #. Bleeding from PICC line site: We discontinued the enoxaparin. Contacted Dr. Ewing from oncology due to concern for any possible side effects that may be causing bleeding he felt that it was Plavix that the patient was on nontender she came here to [facility] that resulted in her bleeding issues. Dr. Jordan he did not feel there is any need to stop infusion. He thought that if need be we could give her some platelets and can keep continuing the current infusion. #. Large hematoma over the left antecubital area: US venous ultrasound of left upper extremity is ordered: Negative for DVT #. Acute renal injury: NSS fluids were provided. Ibuprofen and lisinopril were discontinued: Improving #. Hypocalcemia: Patient is noted to be hypocalcemic today 1 g of IV calcium gluconate given: Follow up labs tomorrow #. Acute on chronic Anemia : The due to recent blood loss, chronic disease. #. Acute on chronic renal failure: Due to poor renal function, she was started on fluids. Renal function is improving Chronic, stable problems: #. Poor Functional status present on admission: Ordered TSH, T4, lipid panel. Consider nutrition consult, palliative care consult.: Started her on thyroid supplement. #Coronary artery disease - Continue metoprolol tartrate 50 mg twice a day, lisinopril 5 mg daily, Plavix 75 mg daily, and furosemide 40 mg by mouth daily. EKG showed sinus rhythm today : Plavix and enoxaparin are held for chemo. Consider restarting once her bleeding stabilizes. Furosemide was stopped due to poor renal function #Constipation. - Continue docusate sodium #Hyperlipidemia - Continue atorvastatin 10 mg daily: Lipid panel is ordered #GERD - Continue Protonix 40 mg by mouth twice a day #Chronic atrial fibrillation: Per Dr. Hartmann, new onset in Apr. Ordered EKG: Normal sinus rhythm When necessary antiemetic, when necessary bowel, Tylenol when necessary DVT prophylaxis SCD Disposition: Pending clinical course DNR/DNI , verified from patient today Prognosis guarded, consulted palliative. Follow-up Dr Hartmann recommendations GI Prophylaxis: Not indicated VTE Prophylaxis: Sub-Q Enoxaparin VTE Mechanical Devices: Intermittant Pneumatic CD Resuscitation Status: DNR/DNI:Do Not Resuscitate/Intubate Limited Interventions: Medications and IV Fluid Junior Bardales MD May 13, 2016 15:05 GI Prophylaxis: Not indicated VTE Prophylaxis: Sub-Q Enoxaparin VTE Mechanical Devices: Intermittant Pneumatic CD Resuscitation Status: DNR/DNI:Do Not Resuscitate/Intubate Limited Interventions: Medications and IV Fluid Junior Bardales MD May 13, 2016 15:05
[2016-05-13] MEDS: D5 0.45% NaCl + KCl 20 mEq/L 1,000 ML IV SCH ×2 (15:30→21:25)
--- NOTE | 2016-05-13 16:11 | PCM.PHAPRO ---
Progress Small cell lung cancer Vancomycin Management by Pharmacy: -Indication: empiric therapy for suspected neutropenic sepsis, not poa ( tachypnea, tachycardia, leukopenia) -pt is s/p ctx for small cell lung ca with mets, now with pancytopenia, neutropenia, wbc 1.2, plt 42 -concurrent antibiotics: Cefepime 1gm iv q8hrs -blood cultures obtained from Picc line prior to administration of antibiotics -serum creatinine 0.84, est clearance ~ 70ml/hr, elevated procalcitonin on 05/12.1 -trough level goal: 15-20 -Plan: pt received a loading dose of Vancomycin 1.5gm iv x 1 around noon today. will give a maintenance dose of 1gm iv [id number] (03-14) and draw trough level prior to 4th dose (0030 on 05/15). serum creatinine to be monitored while on Vancomycin Antonia [facility] May 13, 2016 16:11
[2016-05-13] MEDS ORDERED: Diltiazem Inj 125 MG in 0.9% Sodium Chloride 100 ML, Pharmacy To Mix 1 EA IV SCH (16:25)
[2016-05-13 17:00] LABS: Magnesium 2.2 mg/dL (1.6-2.6)
--- NOTE | 2016-05-13 17:35 | NUR ---
spiritual care: staff referral brief introductory visit with plan for spiritual care follow up tomorrow.
[2016-05-13] MEDS: Cefepime Inj 1,000 MG in Dextrose 5% Minibag Plus 50 ML IV SCH (18:44)
--- NOTE | 2016-05-13 19:38 | NUR ---
Pt with HR elevated 130-150s. aware. Ordered Cardizem gtt, but was informed we do not do these on this floor. instructed to give 2030 Metoprol dose of 50mg PO now - dose given and 15minutes later after requesting pharmacy to verify order for admin, Cardizem IVP given. Pt responsive to this - MD sheehan paged and notified that pt HR now <100. IV therapy present to change PICC dressing as well as start PIV for Cefepime infusion as not compatible with all the other spplmt and abx ordered. Able to obtain small gauge IV, blew on flush to start Cefepime. Call to re: pt with only 1 lumen PICC and poor vein access. Stated wanting IV therapy to reattempt access and if this does not work then to try and fit it in - IV therapy made aware for restart of PIV. aware that afternoon K+ 2.9. Pt finishing her 2nd 30mEq K+ rider with an additional 30mEQ K+ rider to be infused. stated that since K+ 2.9, to give Cefepime dose first then the final K+ rider. Pharmacy called and requested to change times - completed. At change of shift, Cefepime infusing. NOC RN aware. Care continues.
[2016-05-13 19:44] LABS: Magnesium 2.2 mg/dL (1.6-2.6)
[2016-05-13] MEDS: Insulin GLARgine 100 Unit/mL Syringe SUBQ SCH (21:16)
[2016-05-13 22:02] LABS: Magnesium 2.2 mg/dL (1.6-2.6)
--- NOTE | 2016-05-13 23:55 | PROG NOTE ---
[address] [address] PROGRESS NOTE PATIENT: CARLEEN SHEIKH : 1960 MR#: [id number] ADMIT: 05/06/2016 JOB ID: [id number] DATE: 05/13/2016 This is a 55-year-old woman who was hospitalized for systemic chemotherapy for extensive stage small-cell lung cancer for the right suprahilar mass, mediastinal adenopathy and extensive liver involvement. When she presented, she already had a very poor performance status, and abnormal liver enzymes related to her liver metastases. We decided to attempt one effort at systemic chemotherapy in order to try to reverse this process which was very rapid and would lead to her demise within weeks most likely, and she began systemic chemotherapy with cisplatin and etoposide on May 07, 2016. TIMELINE: Day one equal May 07, 2016: Cisplatin plus etoposide. Day two equals May 08, etoposide half dose only (elevated bilirubin, reduced dose). Day three equal May 09, 2016: Etoposide only, half dose. May 11, 2016, Neulasta. Please note that initially we were unable to identify whether the patient had received Neulasta or not, so had planned on initiating Neupogen or filgrastim today, however, the pharmacy informed us that the patient indeed had received Neulasta so filgrastim was not ordered. The patient is now day seven and is cytopenic as expected. One of the questions is would it be appropriate support and whether or not to place her on palliative care only; please see discussion below. SUBJECTIVE: I saw the patient twice today, one time early in the morning when she was quite sleepy and not very responsive and then in the afternoon at which time she was much more talkative and oriented to person, to [facility] and to April 2016 and also was willing to speak about code status and aggressiveness of care. Nonetheless, she is quite somnolent. Her main complaints are feeling ill and weak, no appetite and chronic back pain which has been worse since being in the hospital. OBJECTIVE: Temp is 36.5, pulse was 137, respiratory rate 9, blood pressure 104/68, pulse ox 99% on room air. It should be noted the patient did develop atrial fibrillation among other problems and these are discussed below. Her I and O's show surprising p.o. intake at 11:17 yesterday. She has had little stool. Has had a Michel catheter with 1400 mL out yesterday, 3800 today. Weight 75 kg up 1 kg. General: As noted above, she appears weak and tired but is talkative, as described above. Head and neck: Modest alopecia but this predated her chemotherapy. Pupils equal, round, reactive. Mild icterus. Oral mucosa is pink and moist. Lymph nodes are negative in the neck and supraclavicular areas. Chest shows scattered inspiratory and expiratory rhonchi. No wheezes. Cardiac: Rhythm is regular. When I examined her, her rate was under 100. Abdomen: Soft, nontender. Bowel sounds are present. No palpable organomegaly although the patient liver metastases. Extremities without edema. IMAGING: The patient had a chest x-ray today showing a right upper lobe mass and pleural effusion, unchanged. LABORATORY VALUES: White count was 1.2, neutrophils 69%, hemoglobin 7.6, hematocrit 23.4, platelets 42, down from 68. The BUN and creatinine 37 and 0.67, improved, the potassium is 2.9, calcium 7.0, phosphorus 2.2, albumin 2.3. The bilirubin was measured this morning and was 4.7, a little lower than yesterday when it was 5.4. ASSESSMENT AND RECOMMENDATIONS: This is a very ill, 55-year-old woman with advanced small-cell lung cancer who elected to have one attempt at systemic chemotherapy. This attempt was both to assess for tolerance and also to assess whether there would be any response and improvement in her clinical status. It should be kept in mind that she started out being extremely ill with a performance status of 3, and if this had been any other form of metastatic lung cancer would not have been treated but small-cell lung cancer sometimes responds very quickly to systemic therapy. We are now in the week of cytopenias and she had expressed and would reiterate that she wishes to have supportive care including antibiotic therapy, cardiac rate control, fluid and electrolyte support and growth factor support as well as transfusion. She does not require any more growth factor support because she received Neulasta, however, red cell transfusion is appropriate as is platelet transfusion if she drops to below 20,000. She should continue the support at least through the 1st 14 days after initiation of treatment. If her clinical status does not improve, she does not wish to receive additional chemotherapy. In addition, she has said to me that she would want all supportive care to manage infections but would not wish to be placed on a ventilator. However, if it were to come to that, it would be worthwhile making sure that this is still her decision as patients sometimes change their minds. I have been in contact with Dr. Nat William of Palliative Care who was very kind to see the patient and to help with advice on managing her case. In terms of managing her atrial fibrillation and fluid, electrolyte abnormalities, as well as infection, Dr. Bardales is managing these very closely.
[2016-05-14] VITALS (12 sets, daily range): BP systolic 116–162; BP diastolic 70–84; PULSE 81–94; RESP 10–19; O2SAT 99–100
[2016-05-14] MEDS: Vancomycin Inj 1,000 MG in IV Premix 1 EACH IV SCH ×2 (01:26→13:00)
[2016-05-14] MEDS: Insulin Human REGular 300 Unit/3 mL Inj SUBQ SCH ×4 (02:32→22:45)
[2016-05-14] MEDS: Cefepime Inj 1,000 MG in Dextrose 5% Minibag Plus 50 ML IV SCH ×3 (03:21→18:30)
[2016-05-14] MEDS: Clotrimazole Troche 10 mg Tablet MT SCH ×5 (05:43→22:37)
--- NOTE | 2016-05-14 06:17 | NUR ---
Labs/pain Pt rec'd KCL rider as per orders. Q6hr BMP/Magnesium being drawn. Lab phoned at 2039 with critical calcium from blood drawn at 190. pagenatalya, ordered albumin drawn. Repeat labs drawn at 314. Pt experiencing increased pain, moaning and grimacing. Rec'd prn morphine with + effects. Pt being turned/repositioned q2hrs. Tolerating antibiotics with no c/o NV. Accepted dose of lactulose this shift with + results.
[2016-05-14] MEDS ORDERED: Potassium Chloride Inj 30 MEQ in Dextrose 5% 100 ML IV ONE (08:05)
[2016-05-14] MEDS ORDERED: Potassium Chloride Inj 20 MEQ in Dextrose 5% 250 ML IV ONE (08:05)
[2016-05-14] MEDS: Vancomycin Dose per Pharmacist XX SCH (08:30)
[2016-05-14 08:42] LABS: Mean Corpuscular Hemoglobin 29.9 pg (27.0-35.0); Mean Corpuscular Volume 95.4 fL (81-100)
[2016-05-14] MEDS: Lactulose 20 Gm/30 mL 30 mL Syrup PO SCH ×2 (08:45→20:26)
[2016-05-14 09:03] LABS: Platelet Count 23 bil/L (150-400)
--- NOTE | 2016-05-14 09:54 | PCM.PALLBR ---
Palliative Care Recommendation 55-year-old woman with small cell lung cancer, with hepatic and other metastases , now with progressive cytopenias following chemotherapy. Palliative medicine consulted to assist patient and family in determination of goals of care. Today, complained of increasing pain as well as nausea and emesis. Summary of palliative recommendations: -Symptom management (Pain/Encephalopathy)- -Continue Percocet and increase dose and frequency of IV Morphine to 4 mg Q2 hr. prn. If this provides inadequate relief, or if nausea increases with increasing morphine dose, consider switching to IV Dilaudid. - For her nausea, in addition to current prn medications, add olanzapine ODT 5 mg QHS scheduled. - Lactulose appears to be helping with clearer mental processing/alertness noted again today. - Poor prognosis: Dr. William discussed with Dr. Hartmann on 05/13. Patient's family is also aware that the overall outlook is poor. Will plan on returning later today to talk further with the patient and her family - Dr. Hartmann and hospitalist team managing day to day symptoms. -DPOA/Advanced Directives/POLST -Confirmed DO NOT RESUSCITATE/DO NOT INTUBATE per patient and family wishes- POLST completed and signed and copied DNR/DNI/ no FT -Family/emotional support -She confirms that she trusts her daughter Elsa to make decisions for her in the context of her prior wishes for care at end of life. -Family meeting on 05/12 with Palliative care MD/SUPER[employer]LS and patient's daughter Elsa (her POA). See Dr. William's note. -Spiritual support -Wishes to have parking garage manager support Additional medical problems with ongoing management per hospitalist team include : # Suspected neutropenic sepsis, acute,not poa # Intractable hypokalemia,acute # Pancytopenia/neutropenia, acute,not poa # Acute hepatic encephalopathy due to liver metastases, POA #. Small cell right upper lobe lung cancer, present on admission, acute #. Metastatic disease of the liver, present on admission, ongoing #. Type II diabetes mellitus, present on admission, chronic, active #. Acute exacerbation of congestive heart failure, present on admission, acute on chronic # Anasarca due to liver failure #. Thrush, present on admission, acute #. Bleeding from PICC line site: #. Large hematoma over the left antecubital area #. Acute renal injury #. Hypocalcemia #. Acute on chronic Anemia #. Acute on chronic renal failure Chronic, stable problems: #. Poor Functional status present on admission: Ordered TSH, T4, lipid panel. Consider nutrition consult, palliative care consult.: Started her on thyroid supplement. #Coronary artery disease #Constipation. #Hyperlipidemia #GERD #Chronic atrial fibrillation Problems: End of Life Preferences DNR/DNI, limited- reviewed with daughter/POHaim Hunter on 05/12, that this would change to comfort if she goes on hospice Goals of Care Will monitor status over the next few days. If indeed no response to therapy, with chemo induced fabrizio approaching, will then make arrangements regarding placement. Hospice House is the most appropriate placement for her potentially complicated end of life care. SNF would be less ideal. Home to the shared motel room is undesirable for several reasons, including her desire to not in the presence of her young grandchild, who shares the motel room with her and her daughter. Disposition To be determined Resuscitation Status Resuscitation Status: DNR/DNI:Do Not Resuscitate/Intubate Limited Interventions: Medications and IV Fluid POLST Updates/Changes Artificially Admin Nutrition: No Artifical Nutrition by Tube POLST Discussed with: Health Care Agent (DPOAHC) POLST Review Outcome: New Form Completed . Pain: Moderate Symptom management: Nausea, Vomiting, Anxiety, Pain Total time 55 minutes; >50% face to face with patient and family, providing counselling regarding plans and recommendations, and in care coordination with her medical teams. Palliative Brief Note Date of Service May 14, 2016 . Returned to reevaluate patient. Prior to visit him, reviewed her updated records in the EMR in detail and spoke with her bedside nurse both before and after visiting her. Reviewed with particular attention Dr. Hartmann's oncology note- his continued input much appreciated. On my arrival today, the patient was resting in bed, with intermittent nausea and scant emesis. She had just received her lactulose. She has had persistent/ intermittent nausea. She also complains of increasing pain in her low back and over her buttocks and has had inadequate relief with current doses of narcotics. On exam, pale ill-appearing woman lying in bed. She does seem fully oriented and quite appropriate today. Upper extremities with gross edema and ecchymoses. Vital signs noted. Retching. Head and neck exam remarkable for pallor of skin. Lungs with dependent crackles. Heart sounds regular. Abdomen obese and soft, nontender. Labs and imaging studies reviewed in detail. Today's morning labs pending. Anatoliy Hernandez MD May 14, 2016 09:54
[2016-05-14] MEDS: D5 0.45% NaCl + KCl 20 mEq/L 1,000 ML IV SCH (10:45)
[2016-05-14] MEDS ORDERED: KCl 20 mEq/100 mL(CENTRAL) 20 MEQ in IV Premix 1 EACH IV ONE (11:05)
[2016-05-14] MEDS ORDERED: 0.9% Sodium Chloride 250 ML IV ONE ×2 (12:10)
[2016-05-14] MEDS: Pantoprazole 40 mg ER24 Tablet PO SCH ×2 (12:31→17:06)
[2016-05-14] MEDS: Potassium Chloride 20 mEq SR Tablet PO SCH (12:33)
--- NOTE | 2016-05-14 13:49 | PCM.PNMED ---
Subjective Date of Service May 14, 2016 Subjective Patient more alert today. Tachypnea improving. Her rate controlled. Pancytopenia worsened. Discussed is Dr. Hartmann , will transfuse 2 PRBCs and 2 platelets. Remains afebrile. Exam Vital Signs Vital Sign - Last Date Time Temp Pulse Resp B/P Pulse Ox O2 Delivery O2 Flow Rate FiO2 05/14/16 11:01 91 05/14/16 10:36 36.5 16 147/84 100 Nasal Cannula 2.00 Intake and Output 05/13/16 05/13/16 05/14/16 Cumulative From/Thru 15:00 23:00 07:00 05/06/16 18:10 - 05/14/16 06:05 Intake Total 400 ml 3130 ml 630 ml 03796 ml Output Total 2700 ml 1100 ml 700 ml 65281 ml Balance -2300 ml 2030 ml -70 ml -151 ml Intake Oral 400 ml 150 ml 400 ml 3700 ml IV Total 2980 ml 230 ml 95895 ml Packed Cells 300 ml Platelets 205 ml Output Urine Total 2700 ml 1100 ml 700 ml 09238 ml Stool Total 2 ml # Bowel Movements 2 5 Exam Gen.: Laying in bed, appears jaundiced, lethargic but slightly improved, anasarca HEENT: Normocephalic, atraumatic Extremities: Hematoma appears to be resolving over her posterior left arm. Right arm has PICC line and it is covered in dressings. Heart: Irregular, tachycardic Lungs: no crackles or wheezing anteriorly. Posteriorly she is very diminished right greater than left Psych: Mood depressed, Neuro: Nonfocal IVs and Medications Medications Reviewed: Medications were reviewed in detail Lab and Diagnostics Result Diagram: 05/14/16 0315 05/14/16 0650 Microbiology Blood culture negative times 2 X-Rays, CTs and MRIs PROCEDURE: PE STUDY (CTA CHEST) INDICATIONS: 55 year-old female with metastatic small cell lung carcinoma, with hypoxia and shortness of breath. COMPARISON: [facility], CT, THORAX WITH CONTRAST, 04/15/2016, 9:49. FINDINGS: Image quality: Excellent. Pulmonary arteries: Pulmonary arteries are normal in size, and demonstrate no intraluminal filling defects to suggest central pulmonary embolism. Lungs and pleura: 4.5 x 4.3 cm medial right upper lobe mass is again noted, enveloping the right upper lobe pulmonary artery with mild extrinsic narrowing. Mass also causes greater than 85% extrinsic narrowing of the superior vena cava. Small dependent right pleural effusion is now present, along with right lower lobe compressive atelectasis. No pneumothorax. Central and peripheral airways are patent. Mediastinum: Heart size is normal, without pericardial effusion. Patient is status post coronary artery bypass grafting. Bulky precarinal adenopathy is unchanged. Thoracic aorta is normal in caliber and enhancement. Esophagus is normal in caliber, without hiatal hernia. Bones and chest wall: No suspicious bony lesions. Ribs and thoracic spine appear intact throughout. Thyroid gland is normal in size. No axillary or supraclavicular adenopathy. Abdomen: Visualized upper abdominal solid organs appear normal in the early arterial phase of enhancement. IMPRESSION: 1. No evidence for central pulmonary embolism. 2. Medial right upper lobe 4.5 cm mass again noted, with extrinsic mass effect on the superior vena cava and right upper lobe pulmonary artery. No current findings of faby superior vena cava syndrome. 3. Interval development of small basal right pleural effusion, as well as patchy right lower lobe compressive atelectasis. 4. Bulky precarinal mediastinal adenopathy as before. Dictated by: Bennie Hernandez M.D. on 05/02/2016 at 20:57 PROCEDURE: CHEST 1 VIEW IMPRESSION: Bulky right perihilar mass lesion as before, without acute cardiopulmonary disease. Dictated by: Bennie Hernandez M.D. on 05/02/2016 at 19:35 PROCEDURE: ABDOMEN WITH AND WITHOUT CONTR FINDINGS: Image quality: Multiple sequences are degraded by patient respiratory motion. Lung bases: There is trace basal right pleural effusion. Heart size is normal, status post median sternotomy. Solid organs: There is diffuse hepatomegaly, with innumerable hypoenhancing hepatic lesions in the right and left hepatic lobes. Gallbladder contains no gallstones or biliary sludge. Biliary system is non dilated. Pancreas is normal in morphology. No adrenal nodules. Both kidneys demonstrate normal size and enhancement, without hydronephrosis. Nodes and vessels: No retroperitoneal or mesenteric adenopathy by size criteria. Aorta and inferior vena cava are normal in size. Bowel and peritoneum: Unenhanced bowel loops are normal in caliber. There is trace free abdominal fluid. Bones and soft tissues: No ventral hernias. Bone marrow is normal in overall signal. IMPRESSION: 1. Findings consistent with innumerable widespread metastases throughout the liver, with resultant hepatomegaly. 2. Trace basal right pleural effusion, possibly malignant. Dictated by: Bennie Hernandez M.D. on 05/02/2016 at 19:45 PROCEDURE: BRAIN WITH AND WITHOUT CONTRAST CSF Spaces: Basal cisterns are patent. No extra-axial fluid collections. Ventricles are normal in size and shape. Brain: No midline shift. No intracranial bleeds or masses. No abnormal intracranial enhancement. There is mild periventricular and deep white matter chronic small vessel ischemic change. The brainstem appears normal. Diffusion-weighted images demonstrate no acute ischemic insults. No chronic ischemic insults. Normal intravascular flow voids are present. Skull and face: Calvarial marrow is normal in background signal. However, several small T1 hypointense marrow space occupying lesions are noted within the clivus. Orbits appear normal. Sinuses: Sinuses and mastoids appear clear. IMPRESSION: 1. No intracranial metastases identified. 2. Findings suspicious for several small bony metastases in the clivus. As such, consider further evaluation with whole-body bone scan. 3. Mild periventricular and deep white matter chronic small vessel ischemic change. Dictated by: Bennie Hernandez M.D. on 04/28/2016 at 12:19 Assessment & Plan 55-year-old female with small cell lung cancer with liver metastases, type II diabetes, and coronary artery disease presents as a transfer from [facility] for inpatient chemotherapy; Dr. Hartmann following. # neutropenic sepsis, acute,not poa -Patient had tachypnea, tachycardia, leukopenia/pancytopenia, worsening lethargy on 05/13 -Blood culture NGTD x2 , chest x-ray unchanged -Markedly elevated pro-calcitonin at 13 -Started empirically on antibiotics with cefepime and vancomycin on 05/13 # Intractable hypokalemia,acute - now improving -Continue to monitor and replace -BMP and Mg q4h # Pancytopenia/neutropenia, acute,not poa -Patient received Neulasta on 05/11, verified from pharmacy -WBC 0.4, platelets 23 today. Discussed is , will give 2 PRBCs and 2 platelets, irradiated -Antiplatelets and heparin subcutaneous remain on hold # Acute hepatic encephalopathy due to liver metastases, POA -Ammonia 100, started on lactulose #. Small cell right upper lobe lung cancer, present on admission, acute - Management per Dr. Hartmann oncology - Post chemotherapy: Aloxi 0.25mg IV x 1 dose, Emend 150mg IV x 1 dose, Cisplatin 130mg x 1 dose, Etopside 175mg daily x 3 doses - Oxygen as needed, patient currently on 2 L nasal cannula - Percocet switched to oxycodone due to liver failure - Radialogy called due to suspicion for a pneumothorax and a Left decubitus was ordered per their request. The read on that x-ray ruled out pneumothorax. -Completed 3 day of chemotherapy infusion: - Spoke with Dr. Hartmann, he recommends treating her sepsis and electrolyte abnormalities. Will need to wait 1-2 weeks to see effects of chemotherapy # Atrial fibrillation with RVR, new onset in Apr 2016 -RVR Precipitated by sepsis and intractable hypokalemia -On metoprolol 25 mg by mouth twice a day, rate controlled now -Not a candidate for anticoagulation due to low platelets #. Metastatic disease of the liver, present on admission, ongoing - Transaminases elevated #. Type II diabetes mellitus, present on admission, chronic, active -- A1C 6.2 from records in last december - Patient recently started on Humulin, Januvia, fenofibrate, glimepiride, - Currently on 11 units of lantus with sliding scale. Increased to 17 units at bedtime on 05/14 - We will monitor blood sugars #. Acute exacerbation of congestive heart failure, present on admission, acute on chronic - On 40 mg Lasix daily. Discontinued due to intractable hypokalemia -c/w BB #Anasarca due to liver failure -Lasix on hold due to hypokalemia #. Thrush, present on admission, acute - Continue clotrimazole 10 mg troches 5 times daily # sick euthyroid syndrome,poa -Recent TSH low at 0.364 and low free T4 of 0.8 on 05/11/16. She was started on Synthroid 25 g daily on 05/12 by prior team. No need for thyroid supplement. May as well be contributing to onset of RVR A. fib. Discontinued Synthroid. #. Bleeding from PICC line site: discontinued the enoxaparin. Contacted Dr. Ewing from oncology due to concern for any possible side effects that may be causing bleeding he felt that it was Plavix that the patient was on nontender she came here to [facility] that resulted in her bleeding issues. Dr. Jordan he did not feel there is any need to stop infusion. He thought that if need be we could give her some platelets and can keep continuing the current infusion. #. Large hematoma over the left antecubital area: US venous ultrasound of left upper extremity is ordered: Negative for DVT #. Acute renal injury: NSS fluids were provided. Ibuprofen and lisinopril were discontinued: Improving #. Hypocalcemia: Patient is noted to be hypocalcemic. Received IV calcium gluconate #. Acute on chronic Anemia requiring transfusion : due to recent blood loss, chronic disease. chemotherapy Chronic, stable problems: #. Poor Functional status present on admission: Ordered TSH, T4, lipid panel. Consider nutrition consult, palliative care consult.: Started her on thyroid supplement. #Coronary artery disease - Continue metoprolol tartrate 50 mg twice a day, lisinopril 5 mg daily, Plavix 75 mg daily, and furosemide 40 mg by mouth daily. EKG showed sinus rhythm today : Plavix and enoxaparin are held for chemo. Consider restarting once her bleeding stabilizes. Furosemide was stopped due to poor renal function #Constipation. - Continue docusate sodium #Hyperlipidemia -Discontinued atorvastatin due to liver metastasis #GERD - Continue Protonix 40 mg by mouth twice a day #Chronic atrial fibrillation: Per Dr. Hartmann, new onset in Apr. DVT prophylaxis SCD. Lovenox remains on hold due to thrombocytopenia Disposition: Pending clinical course DNR/DNI , verified from patient today GI Prophylaxis: Not indicated VTE Prophylaxis: Sub-Q Enoxaparin VTE Mechanical Devices: Intermittant Pneumatic CD Resuscitation Status: DNR/DNI:Do Not Resuscitate/Intubate Limited Interventions: Medications and IV Fluid Junior Bardales MD May 14, 2016 13:49 Junior Bardales MD May 14, 2016 13:49
[2016-05-14 15:27] LABS: Magnesium 2.1 mg/dL (1.6-2.6)
--- NOTE | 2016-05-14 17:49 | NUR ---
Antibiotics held Unable to administer IV abx due to potassium rider and blood products. Pt only has one IV line available and we are unable to start another line at this time due to poor venous access. Hospitalist aware and wishes to proceed with blood products over antibiotics at this time. VSS, bed down and in locked position, call light w/in reach.
[2016-05-14] MEDS: Ondansetron 2 mg/mL 2 mL Inj IVPUSH PRN (20:31)
[2016-05-14] MEDS: OLANZapine Zydis ODT 5 mg Tablet PO SCH (22:37)
[2016-05-14] MEDS: Insulin GLARgine 100 Unit/mL Syringe SUBQ SCH (22:44)
--- NOTE | 2016-05-14 23:34 | PROG NOTE ---
[address] [address] PROGRESS NOTE PATIENT: CARLEEN SHEIKH : 1960 MR#: [id number] ADMIT: 05/06/2016 JOB ID: [id number] DATE: 05/14/2016 HOSPITAL ROUNDS: This is day eight after initiation of cisplatin and etoposide for extensive stage small cell lung cancer with a right hilar mass, mediastinal adenopathy and extensive liver involvement. The patient came in extremely poor condition and was initiated on treatment because of the nature of small cell lung cancer being ,frequently IV chemotherapy responsive and being one of the only metastatic lung tumors which can turn around the patient's clinical status within weeks after chemotherapy. The patient understands that she will be supported through her cytopenic period, which could be for the next 7-10 days, and that we will have to make a decision as to whether any further chemotherapy should be administered. If the decision is not to administer further chemotherapy her only option would be supportive care. Currently, she is suffering from expected cytopenias despite Neulasta and is receiving platelet and red cell transfusion, and she is also receiving antibiotics with empiric antibiotics started with cefepime and vancomycin with evidence of neutropenic sepsis with an extremely high procalcitonin at 13, but currently patient afebrile. In addition, the patient has developed atrial fibrillation. Finally, she does have an elevated ammonia with evidence of encephalopathy and was treated with lactulose. Thus, this is a very complicated patient with multiple needs for supportive care through this period of treatment with systemic chemotherapy and is not at all certain that she will be able to recover, yet she is entitled to getting through the cytopenic period with appropriate supportive care. Subjectively, I came into the room and she was being visited by her daughter and other family members and friends. She was sleeping, but awakened easily and conversed with me. I asked her numerous questions, which she responded to appropriately. One of them was whether she has an inhaler at home. She describes the use of an Advair inhaler and that she has frequent wheezes and normally at home she described herself using the inhaler twice a day. She seemed very appropriate, but nonetheless lethargic. Aside from her wheezing, loss of appetite and extreme weakness, she has no new complaints. PHYSICAL EXAMINATION: Objectively, temperature 36.6, pulse 86, respiratory rate 10, although observing her sleeping she was breathing at a rate closer to 15. Blood pressure 145/80. She has not spiked a fever during her hospitalization. Her p.o. intake is poor, she took in 550 mL yesterday and 1170 the day before orally. Her weight is 75.9 kg, up 0.9 kg. Head and neck: Modest alopecia. This predated her chemotherapy. Pupils equal, round, reactive. Mild icterus. Oral mucosa is pink and moist without stomatitis. Lymph nodes negative in the neck and supraclavicular area. Cardiac: Rhythm is somewhat irregular with a pulse of 86. No murmur. 1+ to 2+ peripheral edema. There is some edema of the left arm as well. The respiratory exam shows diffuse inspiratory and expiratory wheezes with coarse rhonchi throughout. This is a change from yesterday when she was relatively clear. Abdomen: Bowel sounds are decreased, but present, and abdomen is soft and nontender. LABORATORY VALUES: Today, her white count was 0.4, platelet count 23,000, pre-transfusion hemoglobin 7.2, hematocrit 23.0. The electrolytes show a sodium of 147, potassium 3.4, BUN 33, creatinine 0.53, glucose 197, calcium 7.0. Bilirubin 4.6, down a little bit from May 13 and May 12 when peaked out at 5.4. Alkaline phosphatase remains quite high at 549. On admission, her alkaline phosphatase was 347, yesterday it was 402. Albumin has tracked downward and is now 2.1. Blood cultures were drawn on May 13 and are negative. Stool occult blood positive. ASSESSMENT AND RECOMMENDATIONS: Cytopenias due to chemotherapy, possibly also low-grade gastrointestinal bleeding. The patient is receiving red cell transfusion to maintain her hemoglobin above 8 and platelet transfusion to maintain her platelets above 20. Because of the rapidity of the drop in platelet count I recommended transfusing her at 23,000 with apheresis pack of platelets. This will probably be required daily for the next five days. Regarding her liver disease and encephalopathy, it is encouraging that her bilirubin is not continuing to climb. I am not surprised that the alkaline phosphatase remains high given her liver metastases, but the fact that her bilirubin has not climbed is somewhat encouraging. She has mild encephalopathy and apparently is benefitting from lactulose. Regarding her neutropenia and evidence of sepsis, she is on broad-spectrum antibiotics and Dr. Bardales is managing this and she seems stable in this regard. Regarding her cardiac arrhythmia, she is also stable. Finally, regarding the treatment for small cell lung cancer, as noted above she is receiving supportive care through the cytopenic period and provided her counts can be supported reasonably and she does not develop overt sepsis or progressive liver failure, she will then be re-evaluated at the end of this first chemotherapy period, and that will be next week, to determine whether she should go on to more chemotherapy or supportive care. Currently, the patient's condition in my opinion is actually somewhat improved over her condition on admission. Regarding Palliative Care, Dr. William's and Dr. Hernandez's consultation is greatly appreciated. I understand they discussed with the patient and family that the outlook is poor. I discussed with the family today that the outlook has always been very guarded, but that nothing has changed in terms of the expected results of chemotherapy and that she deserves to be supported through the cytopenic period before making any final decisions on further treatment. Dr. Bardales's, from the hospitalist team, support is greatly appreciated as well.
[2016-05-15] VITALS (11 sets, daily range): BP systolic 120–185; BP diastolic 74–96; PULSE 65–96; RESP 11–19; O2SAT 93–98
[2016-05-15] MEDS ORDERED: Furosemide 10 mg/mL 4 mL Inj IVPUSH ONE (00:10)
[2016-05-15] MEDS: LORazepam 0.5 mg Tablet PO PRN (00:23)
[2016-05-15] MEDS ORDERED: Vancomycin Serum Trough XX ONE (00:30)
[2016-05-15] MEDS: D5 0.45% NaCl + KCl 20 mEq/L 1,000 ML IV SCH ×2 (02:30→20:01)
--- NOTE | 2016-05-15 02:55 | PCM.PHAPRO ---
Progress Date of Service: May 15, 2016 Vancomycin dosing by pharmacy for 55 y/o woman * The patient is on vancomycin 1000 mg every 12 hours * Vancomycin level of 12.8 mcg/mL tonight * One dose was held prior to the level however * Trough at a Q12H dosing would be hard to determine due to the missed dose * Ordering another trough level after two doses more doses of the current vancomycin dosing Thank you. Joelle Jimenez, PharmD Joelle Jimenez May 15, 2016 02:55
[2016-05-15] MEDS: Vancomycin Inj 1,000 MG in IV Premix 1 EACH IV SCH ×2 (03:33→16:37)
[2016-05-15] MEDS: Insulin Human REGular 300 Unit/3 mL Inj SUBQ SCH ×4 (03:41→22:10)
--- NOTE | 2016-05-15 04:46 | NUR ---
Infusions / sputum Received 2 units RBCs and 2 units platelets; SOB after 3 products, lasix given with productive diuresis, tolerated all products without significant distress. Potassium repletion followed blood product, followed by antibiotics. PICC line insertion site continues to ooze, dressing reinforced. Loose, moist cough productive for red, frothy sputum around midnight. After Lasix, pt reported breathing easier, cough eased without further productive sputum. Hourly rounding and frequent turns for skin care continue.
[2016-05-15] MEDS: Cefepime Inj 1,000 MG in Dextrose 5% Minibag Plus 50 ML IV SCH ×3 (05:36→20:01)
[2016-05-15 06:10] LABS: Mean Corpuscular Hemoglobin 29.9 pg (27.0-35.0)
[2016-05-15] MEDS: Potassium Chloride 20 mEq SR Tablet PO SCH (06:45)
[2016-05-15] MEDS: Pantoprazole 40 mg ER24 Tablet PO SCH ×2 (06:49→18:33)
[2016-05-15] MEDS: Clotrimazole Troche 10 mg Tablet MT SCH ×5 (06:49→22:10)
[2016-05-15] MEDS ORDERED: Potassium Chloride 20 mEq SR Tablet PO ONE (06:55)
[2016-05-15] MEDS ORDERED: Potassium Chloride Inj 30 MEQ in Dextrose 5% 100 ML IV ONE ×5 (08:00→15:30)
[2016-05-15] MEDS ORDERED: Magnesium Sulf 4 Gm/100 mL H2O 4 GM in IV Premix 1 EACH IV ONE (09:30)
[2016-05-15] MEDS: Lactulose 20 Gm/30 mL 30 mL Syrup PO SCH ×2 (09:33→20:02)
--- NOTE | 2016-05-15 10:55 | PCM.PALLBR ---
Palliative Care Recommendation 55-year-old woman with small cell lung cancer, with hepatic and other metastases , now with pancytopenia following chemotherapy and receiving appropriate replacement therapy as needed, as well as management of fluids/electrolytes/ etc. Palliative medicine consulted to assist patient and family in determination of goals of care. Today, patient noted improved pain control and perhaps slightly less nausea, though still felt that she wanted better pain control. Summary of palliative recommendations: -Symptom management (Pain/Encephalopathy)- - make oxycodone scheduled, 5 mg PO Q8 hr. for basal pain management, and continue IV Morphine to 4 mg Q2 hr. prn for breakthrough pain. If this provides inadequate relief, or if nausea increases with increasing meds, consider switching to IV Dilaudid and/or increasing basal oxycodone. Monitor her response closely and adjust medications as needed. - for her nausea, continue olanzapine ODT 5 mg QHS (scheduled) along with other prn medications ordered by hospitalist. - lactulose appears to be helping with clearer mental processing/alertness and is continued. - discussed skin issues with her hospitalist Dr. Bardales- her situation is fraught with risk because presence of Michel catheter or FMS (which would help manage her incontinence and help reduce risk of sacral/buttock tissue breakdown ) entail their own risk of causing/contributing to infection. My recommendation was that Dr. Bardales review situation with Dr. Hartmann to get his input and recommendations - while patient's prognosis remains poor, I fully appreciate Dr. Hartmann's observations and hopes regarding potential benefit of chemotherapy even for advanced small cell cancer -DPOA/Advanced Directives/POLST -Confirmed DO NOT RESUSCITATE/DO NOT INTUBATE per patient and family wishes- POLST completed and signed and copied- DNR/DNI/ no FT Spoke at length today by phone with patient's daughter Elsa- reviewed patient' s status over the last several days, answered questions Elsa had, etc. Also reviewed patient's resuscitation wishes- Elsa notes that it has been patient's wish that she not have CPR/defib/intubation and that family members want to respect her wishes. Elsa recalls patient stating emphatically after CABG several years ago that "I will never let them do this to me again" (meaning intubation/mechanical ventilation) and that she has reconfirmed that decision with Elsa and other family members. -Family/emotional support -She confirms that she trusts her daughter Elsa to make decisions for her in the context of her prior wishes for care at end of life. I have called Elsa today and left a message, and will continue to try to reach her through the day for update/review. -Family meeting on 05/12 with Palliative care MD/CORPORATE COMMUNICATIONS MANAGER and patient's daughter Elas (her POA). See Dr. William's note of that date. -Spiritual support -Wishes to have ticker wirer support Additional medical problems with ongoing management per hospitalist team include : # Suspected neutropenic sepsis, acute,not poa # Intractable hypokalemia,acute # Pancytopenia/neutropenia, acute,not poa # Acute hepatic encephalopathy due to liver metastases, POA #. Small cell right upper lobe lung cancer, present on admission, acute #. Metastatic disease of the liver, present on admission, ongoing #. Type II diabetes mellitus, present on admission, chronic, active #. Acute exacerbation of congestive heart failure, present on admission, acute on chronic # Anasarca due to liver failure #. Thrush, present on admission, acute #. Bleeding from PICC line site: #. Large hematoma over the left antecubital area #. Acute renal injury #. Hypocalcemia #. Acute on chronic Anemia #. Acute on chronic renal failure Chronic, stable problems: #. Poor Functional status present on admission: Ordered TSH, T4, lipid panel. Consider nutrition consult, palliative care consult.: Started her on thyroid supplement. #Coronary artery disease #Constipation. #Hyperlipidemia #GERD #Chronic atrial fibrillation Problems: End of Life Preferences DNR/DNI, limited- reviewed with daughter/POA Elsa on 05/12, that this would change to comfort if she goes on hospice Goals of Care Continue aggressive support for now, attempting to carry the patient through the difficult stages of her chemotherapy Per patient and family wishes, however, remains DO NOT RESUSCITATE/DO NOT INTUBATE at this time Disposition To be determined Home to the shared motel room where she was living prior to admission is undesirable for several reasons, including her desire to not in the presence of her young grandchild, who shares the motel room with her and her daughter. Resuscitation Status Resuscitation Status: DNR/DNI:Do Not Resuscitate/Intubate Limited Interventions: Medications and IV Fluid POLST Updates/Changes Artificially Admin Nutrition: No Artifical Nutrition by Tube POLST Discussed with: Health Care Agent ([facility]) POLST Review Outcome: New Form Completed . Pain: Moderate Symptom management: Nausea, Drowsiness/sleepiness, Pain Total time 75 minutes; >50% face to face with patient and family, providing counselling regarding plans and recommendations, and in care coordination with her medical teams. Of the above total time, 15 minutes counseling for advanced care planning with the patient's daughter, reviewing/confirming advance directive wishes and goals of care Palliative Brief Note Date of Service May 15, 2016 . Returned to reevaluate patient. Prior to visiting, reviewed her updated records in the EMR in detail, including her comprehensive note by Dr. Hartamnn. His input and perspective much appreciated. Also spoke with her bedside nurse, and after multiple attempts reached his daughter Elsa to update her as well. Nurse noted that patient's Michel catheter was discontinued yesterday. She is incontinent of urine and stool and is receiving lactulose. There are some early signs of tissue maceration and breakdown posteriorly, certainly possibly exacerbated by her incontinence. When I arrived, patient was lying in bed, sleeping. Easily aroused. Tells me that she thinks her pain is improved with the changes made yesterday but control still is not optimal. Says that her nausea may be a little bit better as well. She denied any significant chest or abdominal pain. On exam, fatigued-appearing woman lying in bed. Pale. Skin otherwise warm and dry. Vital signs noted. Head and neck exam without other acute focal findings. Lungs clear anterolaterally, heart sounds regular, abdomen rounded, soft, without tenderness. Extremities with ecchymoses as before and diffuse puffiness/edema. Laboratory and imaging studies reviewed again in detail. Sodium elevated, potassium low. Liver function abnormalities noted. Pancytopenia (as expected post-chemotherapy) with replacement of platelets and PRBCs yesterday (and now that patient has already received Neulasta). Anatoliy Hernandez MD May 15, 2016 10:55
[2016-05-15] MEDS ORDERED: 0.9% Sodium Chloride 100 ML ONE (13:50)
--- NOTE | 2016-05-15 14:10 | NUR ---
NUTRITION FOLLOW-UP: ASSESS: 55 YO F admit with progressive debilitation with small cell lung CA and mets to liver. Oncology is following. Pt has been refusing most of her meals due to nausea and AMS. She is on lactulose which seems to be helping with her mentation. Palliative care is following. Pt does not want nutrition support. PMHX: DM, Afib,CHF DIET: Heart Healthy Diabetic. Glucerna and milk on all trays. Refusing PO intake most meals x 9 days. LABS: Reviewed. Na 149, K 2.6, CO2 34, Copy Coordinator 28, Glu 169, Ca 7.1, t.bili 4.3, AST 159, ALT 163, Alk phos 518, Alb 2.3 MEDS: Reviewed. Lactulose, Lasix, insulin, zofran GI: BM x 2 (05/15) (incontinent of stool and urine) WEIGHT: 76.2 kg . BMI 30.7kg/m2 Admit wt: 72.4 kg SKIN: Small open area above gluteal cleft, 3 lesions around anus EST.NEEDS: CANCER Kcal: 3604-8708 (25-30 kcals/kg BW) Pro 70-110 (1.0-1.5 g/kg BW) NUTRITION DIAGNOSIS: (1) Inadequate oral intake related to decreased appetite as evidenced by poor po intake x 9 days, persistent nausea and AMS. --PERSISTS. INTERVENTION: (1) Continue to send glucerna and milk on all trays. Will add SF Mighty Shake on all trays as well. (2) Continue to encourage PO intake MONITOR/EVALUATE: PO intake, lab,wt, gi, nutritional status and POC. Follow per high nutritional risk guidelines.
[2016-05-15 14:49] LABS: Magnesium 2.6 mg/dL (1.6-2.6)
--- NOTE | 2016-05-15 14:55 | PCM.PNMED ---
Subjective Date of Service May 15, 2016 Subjective Received 2 units of PRBC and 2 units of platelets yesterday. Remains lethargic. Afebrile. Remains pancytopenic. Had frequent loose stools. RN to titrate lactulose nto 2-3 BMs. Exam Vital Signs Vital Sign - Last Date Time Temp Pulse Resp B/P Pulse Ox O2 Delivery O2 Flow Rate FiO2 05/15/16 14:44 36.9 82 17 152/82 95 Nasal Cannula 2.00 Intake and Output 05/14/16 05/14/16 05/15/16 Cumulative From/Thru 15:00 23:00 07:00 05/06/16 18:10 - 05/15/16 06:10 Intake Total 247 ml 842 ml 929 ml 00259 ml Output Total 1525 ml 02052 ml Balance 247 ml 842 ml -596 ml 342 ml Intake Oral 0 ml 3700 ml IV Total 247 ml 222 ml 376 ml 98331 ml Packed Cells 620 ml 553 ml 1473 ml Platelets 205 ml Output Urine Total 1525 ml 55035 ml Stool Total 2 ml # Bowel Movements 2 7 Exam Gen.: Laying in bed, appears jaundiced, lethargic but slightly improved, anasarca HEENT: Normocephalic, atraumatic Extremities: Hematoma appears to be resolving over her posterior left arm. Right arm has PICC line and it is covered in dressings. Heart: Irregular, tachycardic Lungs: no crackles or wheezing anteriorly. Posteriorly she is very diminished right greater than left Abdomen: Soft Psych: Mood depressed, Neuro: Lethargic IVs and Medications Medications Reviewed: Medications were reviewed in detail Lab and Diagnostics Result Diagram: 05/15/16 0540 05/15/16 0540 Microbiology Blood culture negative times 2 X-Rays, CTs and MRIs PROCEDURE: PE STUDY (CTA CHEST) INDICATIONS: 55 year-old female with metastatic small cell lung carcinoma, with hypoxia and shortness of breath. COMPARISON: [facility], CT, THORAX WITH CONTRAST, 04/15/2016, 9:49. FINDINGS: Image quality: Excellent. Pulmonary arteries: Pulmonary arteries are normal in size, and demonstrate no intraluminal filling defects to suggest central pulmonary embolism. Lungs and pleura: 4.5 x 4.3 cm medial right upper lobe mass is again noted, enveloping the right upper lobe pulmonary artery with mild extrinsic narrowing. Mass also causes greater than 85% extrinsic narrowing of the superior vena cava. Small dependent right pleural effusion is now present, along with right lower lobe compressive atelectasis. No pneumothorax. Central and peripheral airways are patent. Mediastinum: Heart size is normal, without pericardial effusion. Patient is status post coronary artery bypass grafting. Bulky precarinal adenopathy is unchanged. Thoracic aorta is normal in caliber and enhancement. Esophagus is normal in caliber, without hiatal hernia. Bones and chest wall: No suspicious bony lesions. Ribs and thoracic spine appear intact throughout. Thyroid gland is normal in size. No axillary or supraclavicular adenopathy. Abdomen: Visualized upper abdominal solid organs appear normal in the early arterial phase of enhancement. IMPRESSION: 1. No evidence for central pulmonary embolism. 2. Medial right upper lobe 4.5 cm mass again noted, with extrinsic mass effect on the superior vena cava and right upper lobe pulmonary artery. No current findings of faby superior vena cava syndrome. 3. Interval development of small basal right pleural effusion, as well as patchy right lower lobe compressive atelectasis. 4. Bulky precarinal mediastinal adenopathy as before. Dictated by: Bennie Hernandez M.D. on 05/02/2016 at 20:57 PROCEDURE: CHEST 1 VIEW IMPRESSION: Bulky right perihilar mass lesion as before, without acute cardiopulmonary disease. Dictated by: Bennie Hernandez M.D. on 05/02/2016 at 19:35 PROCEDURE: ABDOMEN WITH AND WITHOUT CONTR FINDINGS: Image quality: Multiple sequences are degraded by patient respiratory motion. Lung bases: There is trace basal right pleural effusion. Heart size is normal, status post median sternotomy. Solid organs: There is diffuse hepatomegaly, with innumerable hypoenhancing hepatic lesions in the right and left hepatic lobes. Gallbladder contains no gallstones or biliary sludge. Biliary system is non dilated. Pancreas is normal in morphology. No adrenal nodules. Both kidneys demonstrate normal size and enhancement, without hydronephrosis. Nodes and vessels: No retroperitoneal or mesenteric adenopathy by size criteria. Aorta and inferior vena cava are normal in size. Bowel and peritoneum: Unenhanced bowel loops are normal in caliber. There is trace free abdominal fluid. Bones and soft tissues: No ventral hernias. Bone marrow is normal in overall signal. IMPRESSION: 1. Findings consistent with innumerable widespread metastases throughout the liver, with resultant hepatomegaly. 2. Trace basal right pleural effusion, possibly malignant. Dictated by: Bennie Hernandez M.D. on 05/02/2016 at 19:45 PROCEDURE: BRAIN WITH AND WITHOUT CONTRAST CSF Spaces: Basal cisterns are patent. No extra-axial fluid collections. Ventricles are normal in size and shape. Brain: No midline shift. No intracranial bleeds or masses. No abnormal intracranial enhancement. There is mild periventricular and deep white matter chronic small vessel ischemic change. The brainstem appears normal. Diffusion-weighted images demonstrate no acute ischemic insults. No chronic ischemic insults. Normal intravascular flow voids are present. Skull and face: Calvarial marrow is normal in background signal. However, several small T1 hypointense marrow space occupying lesions are noted within the clivus. Orbits appear normal. Sinuses: Sinuses and mastoids appear clear. IMPRESSION: 1. No intracranial metastases identified. 2. Findings suspicious for several small bony metastases in the clivus. As such, consider further evaluation with whole-body bone scan. 3. Mild periventricular and deep white matter chronic small vessel ischemic change. Dictated by: Bennie Hernandez M.D. on 04/28/2016 at 12:19 Assessment & Plan 55-year-old female with small cell lung cancer with liver metastases, type II diabetes, and coronary artery disease presents as a transfer from [facility] for inpatient chemotherapy; Dr. Hartmann following. # neutropenic sepsis, acute,not poa -Patient had tachypnea, tachycardia, leukopenia/pancytopenia, worsening lethargy on 05/13 -Blood culture NGTD x2 , chest x-ray unchanged -Markedly elevated pro-calcitonin at 13 -Started empirically on antibiotics with cefepime and vancomycin on 05/13 # Intractable hypokalemia,acute - now improving -Continue to monitor and replace -BMP and Mg q4h # Pancytopenia/neutropenia, acute,not poa -Patient received Neulasta on 05/11, verified from pharmacy -WBC 0.3, platelets 76 today. Received 2 PRBCs and 2 platelets, irradiated -Antiplatelets and heparin subcutaneous remain on hold # Acute hepatic encephalopathy due to liver metastases, POA -Ammonia 100, started on lactulose . Titrate to 2-3 BMs #. Small cell right upper lobe lung cancer, present on admission, acute - Management per Dr. Hartmann oncology - Post chemotherapy: Aloxi 0.25mg IV x 1 dose, Emend 150mg IV x 1 dose, Cisplatin 130mg x 1 dose, Etopside 175mg daily x 3 doses - Percocet switched to oxycodone due to liver failure - Radialogy called due to suspicion for a pneumothorax and a Left decubitus was ordered per their request. The read on that x-ray ruled out pneumothorax. -Completed 3 day of chemotherapy infusion: # Atrial fibrillation with RVR, new onset in Apr 2016 -RVR Precipitated by sepsis and intractable hypokalemia -On metoprolol 25 mg by mouth twice a day, rate controlled now -Not a candidate for anticoagulation due to low platelets #. Metastatic disease of the liver, present on admission, ongoing - Transaminases elevated but trending down #. Type II diabetes mellitus, present on admission, chronic, active -- A1C 6.2 from records in last december - Patient recently started on Humulin, Januvia, fenofibrate, glimepiride, - Initially started on 11 units of lantus with sliding scale. Increased to 17 units at bedtime on 05/14 - We will monitor blood sugars #. Acute exacerbation of congestive heart failure, present on admission, acute on chronic - On 20 mg Lasix daily. -c/w BB # Hyponatremia, acute -Continue D51 /2 NS, encourage by mouth intake #Anasarca due to liver failure -Lasix 20mg daily #. Thrush, present on admission, acute - Continue clotrimazole 10 mg troches 5 times daily # sick euthyroid syndrome,poa -Recent TSH low at 0.364 and low free T4 of 0.8 on 05/11/16. She was started on Synthroid 25 g daily on 05/12 by prior team. No need for thyroid supplement. May as well be contributing to onset of RVR A. fib. Discontinued Synthroid. #. Bleeding from PICC line site: discontinued the enoxaparin. Contacted Dr. Ewing from oncology due to concern for any possible side effects that may be causing bleeding he felt that it was Plavix that the patient was on nontender she came here to [place] that resulted in her bleeding issues. Dr. Jordan he did not feel there is any need to stop infusion. He thought that if need be we could give her some platelets and can keep continuing the current infusion. #. Large hematoma over the left antecubital area: US venous ultrasound of left upper extremity is ordered: Negative for DVT #. Acute renal injury: NSS fluids were provided. Ibuprofen and lisinopril were discontinued: Improving #. Hypocalcemia: Resolved. Patient is noted to be hypocalcemic. Received IV calcium gluconate #. Acute on chronic Anemia requiring transfusion : due to recent blood loss, chronic disease. chemotherapy Chronic, stable problems: #. Poor Functional status present on admission: Ordered TSH, T4, lipid panel. Consider nutrition consult, palliative care consult.: Started her on thyroid supplement. #Coronary artery disease - Continue metoprolol tartrate 50 mg twice a day, lisinopril 5 mg daily, Plavix 75 mg daily, and furosemide 40 mg by mouth daily. EKG showed sinus rhythm today : Plavix and enoxaparin are held for chemo. Consider restarting once her bleeding stabilizes. #Constipation. - Continue docusate sodium #Hyperlipidemia -Discontinued atorvastatin due to liver metastasis #GERD - Continue Protonix 40 mg by mouth twice a day #Chronic atrial fibrillation: Per Dr. Hartmann, new onset in Apr. DVT prophylaxis SCD. Lovenox remains on hold due to thrombocytopenia Disposition: Pending clinical course DNR/DNI , verified from patient GI Prophylaxis: Not indicated VTE Prophylaxis: Sub-Q Enoxaparin VTE Mechanical Devices: Intermittant Pneumatic CD Resuscitation Status: DNR/DNI:Do Not Resuscitate/Intubate Limited Interventions: Medications and IV Fluid Junior Bardales MD May 15, 2016 14:55
[2016-05-15] MEDS ORDERED: Diltiazem 5 mg/mL 5 mL Inj IVPUSH ONE (16:30)
[2016-05-15] MEDS: Vancomycin Dose per Pharmacist XX SCH (19:15)
--- NOTE | 2016-05-15 19:15 | NUR ---
HR At 1415, pt converted to Aflutter and up to 150s within the hour. MD made aware and IVP Cardizem 10mg given. Effective, HR down to 110s-120s. MD aware of pt response. At 1530, pt to Afib. MD aware. 2030 dose 50mg PO Metoprolol given early per his instructions. At same time, Telemetry calling to say pt with increasing HR - monitoring. At 1855, pt back to NSR in mid80 to 90s. NOC RN aware. Care continues.
[2016-05-15] MEDS: Insulin GLARgine 100 Unit/mL Syringe SUBQ SCH (22:10)
[2016-05-15] MEDS: OLANZapine Zydis ODT 5 mg Tablet PO SCH (22:10)
[2016-05-16] VITALS (8 sets, daily range): BP systolic 119–160; BP diastolic 74–81; PULSE 54–103; RESP 12–19; O2SAT 95–97
--- NOTE | 2016-05-16 02:01 | PROG NOTE ---
[address] [address] PROGRESS NOTE PATIENT: CARLEEN SHEIKH : 1960 MR#: [id number] ADMIT: 05/06/2016 JOB ID: [id number] DATE: 05/15/2016 HOSPITAL ROUNDS: A 55-year-old woman who has extensive stage small cell lung cancer, particularly extensive liver involvement with liver dysfunction and encephalopathy, who is now day nine post initiation of cisplatin and etoposide chemotherapy with pancytopenia and other complications related to her atrial fibrillation, diabetes, encephalopathy, liver dysfunction and generalized inanition. Dr. Bardales has been managing her encephalopathy with lactulose titrated to 2-3 bowel movements a day and supporting her with red cell and platelet transfusions. In addition, she is on antibiotics and had evidence of early sepsis with neutropenia. Subjectively, she is not easily arousable. She was sleeping most of the day according to her brother, Alejandro, who comes from out of town and had not seen her up until this current visit, which was either yesterday or several days ago. She responds to questions appropriately, but is quite somnolent. She complains of no pain, but still has some wheezing. She is receiving respiratory treatments. OBJECTIVE: Her vital signs show a temp of 36.8, pulse 65, respiratory rate 16, blood pressure 120/74, pulse ox 98% on nasal cannula 2 L. I's and O's show a little oral intake today of 120 mL, and weight is 76.2 kg, up a little bit from 75.9 yesterday. General: She appears weak and tired, but is relatively unchanged from admission. Head and neck: Moderate icterus. Pupils equal, round, reactive. No thrush. No adenopathy. Lungs show diffuse coarse inspiratory and expiratory rhonchi and wheezes. Cardiac: Rhythm is irregular. Abdomen: Soft, nontender. Extremities: 2-3+ edema. LABORATORY VALUES: The white count is 0.3, platelets 76 after transfusion from 23 yesterday, hemoglobin 8.6, hematocrit 26.2, up from 23 yesterday prior to transfusion. Calcium is down to 6.7. Potassium still low at 2.8. Sodium 147, BUN 35, creatinine 23, glucose 265. Cortisol 122.7, quite elevated. Bilirubin 4.3, somewhat improved. ALT and AST 163 and 159, also somewhat improved. Alkaline phosphatase 518, improved from 549. ASSESSMENT AND RECOMMENDATIONS: This is a patient with severe inanition, who was given the opportunity to have treatment for extensive stage small cell lung cancer. It is difficult to assess whether she will have any benefit from chemotherapy at this point since she is going through phase, but she is relatively stable. It is encouraging that her liver enzymes have not worsened but rather improved slightly. Generally, if patient is developing progressive liver disease due to cancer one would not expect this; and therefore, there has probably been some chemotherapy effect. Whether this is enough to benefit her remains to be determined. She will continue to receive the excellent supportive care from the hospitalist team and palliative care team, and this will include transfusions of platelets and red cells as needed and continued antibiotic support. Her care is difficult for management of glucose, her fluid and electrolytes, to managing her skin from some macerated skin related to her diarrhea. The elevated cortisol suggests a stress reaction. The cortisol was drawn to make sure she did not have adrenal insufficiency related to her cancer.
[2016-05-16] MEDS ORDERED: Vancomycin Serum Trough XX ONE (04:00)
[2016-05-16] MEDS: Insulin Human REGular 300 Unit/3 mL Inj SUBQ SCH ×3 (04:10→17:28)
--- NOTE | 2016-05-16 04:18 | NUR ---
Mentation / skin Pt very sleepy this shift, occasionally more difficult to arouse than on previous days. Once pt is awake, she participates appropriately in care, able to swallow all meds without choking or coughing. Very large, watery BM. Skin breakdown of perianal area appears to be increasing despite frequent side to side turning. Hourly rounding and frequent turns for skin care continue.
[2016-05-16] MEDS ORDERED: Vancomycin Inj 1,000 MG in IV Premix 1 EACH IV SCH (04:30)
[2016-05-16] MEDS: Pantoprazole 40 mg ER24 Tablet PO SCH ×2 (05:56→17:28)
[2016-05-16] MEDS: Cefepime Inj 1,000 MG in Dextrose 5% Minibag Plus 50 ML IV SCH ×2 (05:57→18:45)
[2016-05-16] MEDS: Clotrimazole Troche 10 mg Tablet MT SCH ×5 (05:57→21:45)
[2016-05-16] MEDS: Lactulose 20 Gm/30 mL 30 mL Syrup PO SCH ×2 (07:17→21:41)
[2016-05-16] MEDS ORDERED: Furosemide 10 mg/mL 2 mL Inj IVPUSH ONE (07:20)
[2016-05-16] MEDS ORDERED: Potassium Chloride 20 mEq SR Tablet PO SCH (08:00)
[2016-05-16 08:05] LABS: Mean Corpuscular Hemoglobin 29.8 pg (27.0-35.0); Mean Corpuscular Volume 93.3 fL (81-100); Platelet Count 40 bil/L (150-400)
[2016-05-16 08:26] LABS: Magnesium 2.1 mg/dL (1.6-2.6); Phosphorus 1.9 mg/dL (2.5-4.9)
[2016-05-16] MEDS ORDERED: Potassium Chloride Inj 20 MEQ in Dextrose 5% 250 ML IV ONE (09:15)
[2016-05-16] MEDS ORDERED: KCl 20 mEq/100 mL(CENTRAL) 20 MEQ in IV Premix 1 EACH IV ONE (10:00)
[2016-05-16] MEDS: Albuterol 2.5 mg/3 mL Inhalation Solution NEB PRN (10:14)
[2016-05-16] MEDS ORDERED: Potassium Phos (mEq) Inj 20 MEQ in Dextrose 5% 250 ML IV ONE (12:00)
--- NOTE | 2016-05-16 12:32 | NUR ---
Social Work- Continued D.C planning Data: EMR reviewed. Pt is on day 10 of hospitalization for small cell lung cancer. Palliative Care continues to follow patient. Per MD in rounds, pt to remain hospitalized through the weekend. Pt continues to require platelets. Pt to discharge to [facility] (A) with MD Duong to follow when medically stable. Paperwork and PASRR in chart. SW will continue to follow. Assessment: Pt who will benefit from SNF. Plan: Pt to discharge to [facility] (A) with MD Duong to follow when medically stable. Paperwork and PASRR in chart. SW will continue to follow. FERNANDO West
--- NOTE | 2016-05-16 13:55 | PCM.PALLBR ---
Palliative Care Recommendation 55-year-old woman with small cell lung cancer, with hepatic and other metastases , now with pancytopenia following chemotherapy and receiving appropriate replacement therapy as needed, as well as management of fluids/electrolytes/ etc. Palliative medicine consulted to assist patient and family in determination of goals of care. Today, patient noted improved pain control and perhaps slightly less nausea, though still felt that she wanted better pain control. Summary of palliative recommendations: -Symptom management (Pain/Encephalopathy)- - Meditech error led to her not receiving adjusted doses of oxycodone ordered yesterday. However, she appears comfortable on prn pain medications, so will continue them and monitor response (oxycodone 5 mg PO Q4 hr prn, as well as IV Morphine to 4 mg Q2 hr. prn for breakthrough pain). - nausea seems significantly improved, though she does seem to be progressively more lethargic. Decrease olanzapine ODT to 2.5 mg QHS (scheduled) along with other prn medications ordered by hospitalist. - lactulose discontinued, in hopes of improving her diarrhea which is contributing to skin breakdown. Michel catheter was replaced yesterday for this reason as well - while patient's prognosis remains poor, I fully appreciate Dr. Hartmann's observations and hopes regarding potential benefit of chemotherapy even in her extensive stage SCLC -DPOA/Advanced Directives/POLST -Confirmed DO NOT RESUSCITATE/DO NOT INTUBATE per patient and family wishes- POLST completed and signed and copied- DNR/DNI/ no FT Spoke at length on 05/15 by phone with patient's daughter Elsa- reviewed patient 's status over the last several days, answered questions Elsa had, etc. Also reviewed patient's resuscitation wishes- Elsa notes that it has been patient's wish that she not have CPR/defib/intubation and that family members want to respect her wishes. Elsa recalls patient stating emphatically after CABG several years ago that "I will never let them do this to me again" (meaning intubation/mechanical ventilation) and that she has reconfirmed that decision with Elsa and other family members. -Family/emotional support -She confirms that she trusts her daughter Elsa to make decisions for her in the context of her prior wishes for care at end of life. I have called Elsa today and left a message, and will continue to try to reach her through the day for update/review. -Family meeting on 05/12 with Palliative care MD/PROFESSIONAL SYSTEM ADMINISTRATOR and patient's daughter Elsa (her POA). See Dr. William's note of that date. -Spiritual support -Wishes to have hooker machine tender support Additional medical problems with ongoing management per hospitalist team include : # Suspected neutropenic sepsis, acute,not poa # Intractable hypokalemia,acute # Pancytopenia/neutropenia, acute,not poa # Acute hepatic encephalopathy due to liver metastases, POA #. Small cell right upper lobe lung cancer, present on admission, acute #. Metastatic disease of the liver, present on admission, ongoing #. Type II diabetes mellitus, present on admission, chronic, active #. Acute exacerbation of congestive heart failure, present on admission, acute on chronic # Anasarca due to liver failure #. Thrush, present on admission, acute #. Bleeding from PICC line site: #. Large hematoma over the left antecubital area #. Acute renal injury #. Hypocalcemia #. Acute on chronic Anemia #. Acute on chronic renal failure Chronic, stable problems: #. Poor Functional status present on admission: Ordered TSH, T4, lipid panel. Consider nutrition consult, palliative care consult.: Started her on thyroid supplement. #Coronary artery disease #Constipation. #Hyperlipidemia #GERD #Chronic atrial fibrillation Problems: End of Life Preferences DNR/DNI, limited- reviewed with daughter/POHaim Hunter on 05/12 and again on 05/15, that this would change to comfort if she goes on hospice Goals of Care Continue aggressive support for now, attempting to carry the patient through the difficult stages of her chemotherapy Per patient and family wishes, however, remains DO NOT RESUSCITATE/DO NOT INTUBATE at this time Disposition To be determined Home to the shared motel room where she was living prior to admission is undesirable for several reasons, including her desire to not in the presence of her young grandchild, who shares the motel room with her and her daughter. Resuscitation Status Resuscitation Status: DNR/DNI:Do Not Resuscitate/Intubate Limited Interventions: Medications and IV Fluid POLST Updates/Changes Artificially Admin Nutrition: No Artifical Nutrition by Tube POLST Discussed with: Health Care Agent ([facility]) POLST Review Outcome: New Form Completed Total time 45 minutes; >50% face to face with patient and family, providing counselling regarding plans and recommendations, and in care coordination with her medical teams. Palliative Brief Note Date of Service May 16, 2016 . Returned to reevaluate patient. Prior to visiting, reviewed her updated records in the EMR in detail. Also spoke with her bedside nurse and with Dr. Bardales Arrived, she was lying in bed, asleep. She aroused easily but remained quite drowsy and drifted back to sleep quickly. She indicated that her pain control was significantly better, that her nausea was diminished, and that she had no trouble breathing. On exam, heavyset pale woman lying in bed in no distress. A little bit of upper airway noise with respiration. Vital signs noted. Skin is warm and dry. Head and neck exam remarkable for pale skin but no cyanosis. Lungs clear anterolaterally, heart sounds regular, abdomen rounded, soft, without apparent tenderness or peritoneal signs. Extremities with diffuse mild pitting edema. Laboratory studies reviewed in detail. White count and platelets remain low, hemoglobin stable after transfusion. Electrolyte abnormalities improved. Transaminases and bilirubin improved, but alkaline phosphatase slightly higher. Pro calcitonin improved. Anatoliy Hernandez MD May 16, 2016 13:55 Anatoliy Hernandez MD May 16, 2016 13:55
--- NOTE | 2016-05-16 15:17 | PCM.PNMED ---
Subjective Date of Service May 16, 2016 Subjective Patient more alert and interactive today. Less nausea and pain. Had 3 bowel movements/24 h. Stopped her lactulose. Continues to have leukopenia and thrombocytopenia. Hemoglobin is somehow stable. Continues to have hypokalemia , transaminitis and pro-calcitonin trending down. Remains afebrile. Exam Vital Signs Vital Sign - Last Date Time Temp Pulse Resp B/P Pulse Ox O2 Delivery O2 Flow Rate FiO2 05/16/16 14:59 36.8 85 16 137/75 95 Nasal Cannula 2.00 Intake and Output 05/15/16 05/15/16 05/16/16 Cumulative From/Thru 15:00 23:00 07:00 05/06/16 18:10 - 05/16/16 06:10 Intake Total 1495 ml 1380 ml 96992 ml Output Total 3087 ml 650 ml 56504 ml Balance -1592 ml 730 ml -520 ml Intake Oral 120 ml 450 ml 4270 ml IV Total 1375 ml 930 ml 77100 ml Packed Cells 1473 ml Platelets 205 ml Output Urine Total 3087 ml 650 ml 52269 ml Stool Total 2 ml # Bowel Movements 1 1 9 Exam Gen.: Laying in bed, appears jaundiced, somnolent but easily arousable, anasarca HEENT: Normocephalic, atraumatic Extremities: Ecchymosis over her posterior left arm. Right arm has PICC line and it is covered in dressings. Heart: Irregular, tachycardic Lungs: no crackles or wheezing anteriorly. Posteriorly she is very diminished right greater than left Abdomen: Soft Psych: Mood depressed, Neuro: Lethargic IVs and Medications Medications Reviewed: Medications were reviewed in detail Lab and Diagnostics Result Diagram: 05/16/16 0400 05/16/16 0400 Microbiology Blood culture negative times 2 X-Rays, CTs and MRIs PROCEDURE: PE STUDY (CTA CHEST) INDICATIONS: 55 year-old female with metastatic small cell lung carcinoma, with hypoxia and shortness of breath. COMPARISON: [facility], CT, THORAX WITH CONTRAST, 04/15/2016, 9:49. FINDINGS: Image quality: Excellent. Pulmonary arteries: Pulmonary arteries are normal in size, and demonstrate no intraluminal filling defects to suggest central pulmonary embolism. Lungs and pleura: 4.5 x 4.3 cm medial right upper lobe mass is again noted, enveloping the right upper lobe pulmonary artery with mild extrinsic narrowing. Mass also causes greater than 85% extrinsic narrowing of the superior vena cava. Small dependent right pleural effusion is now present, along with right lower lobe compressive atelectasis. No pneumothorax. Central and peripheral airways are patent. Mediastinum: Heart size is normal, without pericardial effusion. Patient is status post coronary artery bypass grafting. Bulky precarinal adenopathy is unchanged. Thoracic aorta is normal in caliber and enhancement. Esophagus is normal in caliber, without hiatal hernia. Bones and chest wall: No suspicious bony lesions. Ribs and thoracic spine appear intact throughout. Thyroid gland is normal in size. No axillary or supraclavicular adenopathy. Abdomen: Visualized upper abdominal solid organs appear normal in the early arterial phase of enhancement. IMPRESSION: 1. No evidence for central pulmonary embolism. 2. Medial right upper lobe 4.5 cm mass again noted, with extrinsic mass effect on the superior vena cava and right upper lobe pulmonary artery. No current findings of faby superior vena cava syndrome. 3. Interval development of small basal right pleural effusion, as well as patchy right lower lobe compressive atelectasis. 4. Bulky precarinal mediastinal adenopathy as before. Dictated by: Bennie Hernandez M.D. on 05/02/2016 at 20:57 PROCEDURE: CHEST 1 VIEW IMPRESSION: Bulky right perihilar mass lesion as before, without acute cardiopulmonary disease. Dictated by: Bennie Hernandez M.D. on 05/02/2016 at 19:35 PROCEDURE: ABDOMEN WITH AND WITHOUT CONTR FINDINGS: Image quality: Multiple sequences are degraded by patient respiratory motion. Lung bases: There is trace basal right pleural effusion. Heart size is normal, status post median sternotomy. Solid organs: There is diffuse hepatomegaly, with innumerable hypoenhancing hepatic lesions in the right and left hepatic lobes. Gallbladder contains no gallstones or biliary sludge. Biliary system is non dilated. Pancreas is normal in morphology. No adrenal nodules. Both kidneys demonstrate normal size and enhancement, without hydronephrosis. Nodes and vessels: No retroperitoneal or mesenteric adenopathy by size criteria. Aorta and inferior vena cava are normal in size. Bowel and peritoneum: Unenhanced bowel loops are normal in caliber. There is trace free abdominal fluid. Bones and soft tissues: No ventral hernias. Bone marrow is normal in overall signal. IMPRESSION: 1. Findings consistent with innumerable widespread metastases throughout the liver, with resultant hepatomegaly. 2. Trace basal right pleural effusion, possibly malignant. Dictated by: Bennie Hernandez M.D. on 05/02/2016 at 19:45 PROCEDURE: BRAIN WITH AND WITHOUT CONTRAST CSF Spaces: Basal cisterns are patent. No extra-axial fluid collections. Ventricles are normal in size and shape. Brain: No midline shift. No intracranial bleeds or masses. No abnormal intracranial enhancement. There is mild periventricular and deep white matter chronic small vessel ischemic change. The brainstem appears normal. Diffusion-weighted images demonstrate no acute ischemic insults. No chronic ischemic insults. Normal intravascular flow voids are present. Skull and face: Calvarial marrow is normal in background signal. However, several small T1 hypointense marrow space occupying lesions are noted within the clivus. Orbits appear normal. Sinuses: Sinuses and mastoids appear clear. IMPRESSION: 1. No intracranial metastases identified. 2. Findings suspicious for several small bony metastases in the clivus. As such, consider further evaluation with whole-body bone scan. 3. Mild periventricular and deep white matter chronic small vessel ischemic change. Dictated by: Bennie Hernandez M.D. on 04/28/2016 at 12:19 Assessment & Plan 55-year-old female with small cell lung cancer with liver metastases, type II diabetes, and coronary artery disease presents as a transfer from [facility] for inpatient chemotherapy; Dr. Hartmann following. # neutropenic sepsis, acute,not poa -Patient had tachypnea, tachycardia, leukopenia/pancytopenia, worsening lethargy on 05/13 -Blood culture NGTD x2 , chest x-ray unchanged -Markedly elevated pro-calcitonin at 13 , now trending down -Started empirically on antibiotics with cefepime and vancomycin on 05/13,MRSA nares negative, vancomycin discontinued today 05/16 # Intractable hypokalemia,acute - now improving -Continue to monitor and replace -BMP and Mg q4h -resume lasix 40mg po daily for anasarca and CHF # Pancytopenia/neutropenia, acute,not poa -Patient received Neulasta on 05/11, verified from pharmacy -WBC 0.3, platelets 40 today. Received 2 PRBCs and 2 platelets on 05/14, -Antiplatelets and heparin subcutaneous remain on hold # Acute hepatic encephalopathy due to liver metastases, POA -Ammonia 100, started on lactulose . Titrate to 2-3 BMs , lactulose now on hold due to frequent BM #. Small cell right upper lobe lung cancer, present on admission, acute - Management per Dr. Hartmann oncology - Post chemotherapy: Aloxi 0.25mg IV x 1 dose, Emend 150mg IV x 1 dose, Cisplatin 130mg x 1 dose, Etopside 175mg daily x 3 doses - Percocet switched to oxycodone due to liver failure -Completed 3 day of chemotherapy infusion: # Atrial fibrillation with RVR, new onset in Apr 2016,RVR resolved now -RVR Precipitated by sepsis and intractable hypokalemia -On metoprolol 25 mg by mouth twice a day, rate controlled now -Not a candidate for anticoagulation due to low platelets #. Metastatic disease of the liver, present on admission, ongoing - Transaminases elevated but trending down #. Type II diabetes mellitus, present on admission, chronic, active -- A1C 6.2 from records in last december - Patient recently started on Humulin, Januvia, fenofibrate, glimepiride, - Initially started on 11 units of lantus with sliding scale. Increased to 17 units at bedtime on 05/14 - We will monitor blood sugars #. Acute exacerbation of congestive heart failure, present on admission, acute on chronic - On 40 mg Lasix daily with kcl 20meq bid -c/w BB , lisinopril, Lasix -EF 25 % in 2013 on cardiac cath #Anasarca due to liver failure and CHF -Lasix 40mg po daily. will increase Lasix dose once hypokalemia is controlled #. Thrush, present on admission, acute - Continue clotrimazole 10 mg troches 5 times daily # sick euthyroid syndrome,poa -Recent TSH low at 0.364 and low free T4 of 0.8 on 05/11/16. She was started on Synthroid 25 g daily on 05/12 by prior team. No need for thyroid supplement. May as well be contributing to onset of RVR A. fib. Discontinued Synthroid. #. Acute on chronic Anemia requiring transfusion : due to recent blood loss, chronic disease. chemotherapy Chronic, stable problems: #Coronary artery disease - Continue metoprolol tartrate 50 mg twice a day, lisinopril 5 mg daily, hold Plavix 75 mg, . #Hyperlipidemia -Discontinued atorvastatin due to liver metastasis #GERD - Continue Protonix 40 mg by mouth twice a day DVT prophylaxis SCD. Lovenox remains on hold due to thrombocytopenia Disposition: Pending clinical course,patient will need to have IV antibiotics and be monitored for intractable hypokalemia DNR/DNI , GI Prophylaxis: Not indicated VTE Prophylaxis: Sub-Q Enoxaparin VTE Mechanical Devices: Intermittant Pneumatic CD Resuscitation Status: DNR/DNI:Do Not Resuscitate/Intubate Limited Interventions: Medications and IV Fluid Junior Bardales MD May 16, 2016 15:17 bleeding stabilizes. #Constipation. - Continue docusate sodium #Hyperlipidemia -Discontinued atorvastatin due to liver metastasis #GERD - Continue Protonix 40 mg by mouth twice a day #Chronic atrial fibrillation: Per Dr. Hartmann, new onset in Apr. DVT prophylaxis SCD. Lovenox remains on hold due to thrombocytopenia Disposition: Pending clinical course DNR/DNI , verified from patient GI Prophylaxis: Not indicated VTE Prophylaxis: Sub-Q Enoxaparin VTE Mechanical Devices: Intermittant Pneumatic CD Resuscitation Status: DNR/DNI:Do Not Resuscitate/Intubate Limited Interventions: Medications and IV Fluid Junior Bardales MD May 16, 2016 15:17
[2016-05-16] MEDS ORDERED: 0.9% Sodium Chloride 250 ML ONE (17:25)
--- NOTE | 2016-05-16 19:32 | NUR ---
Electrolytes/Pain Pt received K+ rider and Potassium Phosphate IV - d/t unknown compatibilities, 1400 Cefepime delayed - Pharmacy aware and was retimed from time of hanging (~1845). Pain: Pt does not state pain/need for pain medication typically when at rest. She will c/o pain with repositioning. Needs to be asked if she is having any pain or needs pain medications to which she will then make her pain needs known. IVP Morphine 4mg effective this shift. Care continues.
[2016-05-16] MEDS: Potassium Chloride 20 mEq SR Tablet PO SCH (21:41)
[2016-05-16] MEDS: OLANZapine Zydis ODT 5 mg Tablet PO SCH (21:43)
[2016-05-16] MEDS: Insulin GLARgine 100 Unit/mL Syringe SUBQ SCH (23:08)
[2016-05-17] VITALS (13 sets, daily range): BP systolic 126–157; BP diastolic 61–84; PULSE 75–114; RESP 16–20; O2SAT 84–96
[2016-05-17] MEDS: Insulin Human REGular 300 Unit/3 mL Inj SUBQ SCH ×5 (00:47→22:32)
[2016-05-17] MEDS: Cefepime Inj 1,000 MG in Dextrose 5% Minibag Plus 50 ML IV SCH ×3 (03:09→19:00)
--- NOTE | 2016-05-17 04:44 | NUR ---
Blood Sugar Blood Glucose at 2142 for 177 was incorrect.
--- NOTE | 2016-05-17 06:00 | NUR ---
Mentation Patient was very passive this shift. Most of the patient's responses were delayed or she did not answer questions at all. At times, the patient would not unfold her arms to scan armband for medication. Closer to the end of the shift, she denied needing anything and answered appropriately to questions. Morphine was administered for pain x1 during shift. Calmoseptine was applied to buttocks area. Patient was turned. VSS. Call light within reach. Care continues.
[2016-05-17] MEDS: Pantoprazole 40 mg ER24 Tablet PO SCH ×2 (08:15→20:40)
[2016-05-17] MEDS: Potassium Chloride 20 mEq SR Tablet PO SCH ×2 (08:16→20:40)
[2016-05-17] MEDS: Clotrimazole Troche 10 mg Tablet MT SCH ×5 (08:17→22:00)
[2016-05-17 08:34] LABS: Mean Corpuscular Hemoglobin 29.8 pg (27.0-35.0)
[2016-05-17 08:57] LABS: Platelet Count 16 bil/L (150-400)
[2016-05-17 09:12] LABS: Magnesium 1.4 mg/dL (1.6-2.6); Phosphorus 2.1 mg/dL (2.5-4.9)
--- NOTE | 2016-05-17 09:27 | NUR ---
Tele Rec'd call from Tele monitor that pt's HR >110 w/ slight ST depressions. Pgd hospitalist. EKG ordered. Rec'd another call from Tele monitor that pt was in and out of the 140s. Pt symptomatic. Call RT to perform EKG LESLEY, Hospitalist paged. BP meds had just been given. Rechecked w/ threat monitoring analyst pt currently SR90s. Pt asymptomatic. Call light w.in reach bed down and locked.
[2016-05-17] MEDS ORDERED: 0.9% Sodium Chloride 250 ML IV ONE (09:30)
[2016-05-17] MEDS ORDERED: Potassium Chloride Inj 30 MEQ in Dextrose 5% 100 ML IV ONE ×2 (11:00→20:15)
[2016-05-17] MEDS ORDERED: Potassium Chloride Inj 20 MEQ in Dextrose 5% 250 ML IV ONE (11:00)
[2016-05-17] MEDS ORDERED: Magnesium Sulf 4 Gm/100 mL H2O 4 GM in IV Premix 1 EACH IV ONE (11:00)
[2016-05-17] MEDS ORDERED: KCl 40 mEq/500 mL D5W (Peripheral Line) IV ONE ×2 (11:25)
--- NOTE | 2016-05-17 13:13 | PCM.PNMED ---
Subjective Date of Service May 17, 2016 Subjective Patient clinically very slowly getting better. She is more interactive and alert today. Platelet 16 today, will transfuse 2 platelets. Had 3 loose stools. Lactulose discontinued. Continues to have hypokalemia and low magnesium. Liver function test continues to improve. Exam Vital Signs Vital Sign - Last Date Time Temp Pulse Resp B/P Pulse Ox O2 Delivery O2 Flow Rate FiO2 05/17/16 13:01 87 16 126/82 05/17/16 11:36 36.8 05/17/16 04:44 95 Nasal Cannula 2.00 Intake and Output 05/16/16 05/16/16 05/17/16 Cumulative From/Thru 15:00 23:00 07:00 05/06/16 18:10 - 05/17/16 06:42 Intake Total 103 ml 602 ml 153 ml 58147 ml Output Total 2200 ml 57537 ml Balance 103 ml -1598 ml 153 ml -1862 ml Intake Oral 200 ml 4470 ml IV Total 103 ml 402 ml 153 ml 51102 ml Packed Cells 1473 ml Platelets 205 ml Output Urine Total 2200 ml 73607 ml Stool Total 2 ml # Bowel Movements 9 Exam Gen.: Laying in bed, appears jaundiced, alert and oriented, anasarca HEENT: Normocephalic, atraumatic Extremities: Ecchymosis over her posterior left arm. Right arm has PICC line and it is covered in dressings. Heart: Irregular, tachycardic Lungs: no crackles or wheezing anteriorly. Posteriorly she is very diminished right greater than left Abdomen: Soft Neuro: Alert and oriented IVs and Medications Medications Reviewed: Medications were reviewed in detail Lab and Diagnostics Result Diagram: 05/17/16 0815 05/17/16 0815 Microbiology Blood culture negative times 2 X-Rays, CTs and MRIs PROCEDURE: PE STUDY (CTA CHEST) INDICATIONS: 55 year-old female with metastatic small cell lung carcinoma, with hypoxia and shortness of breath. COMPARISON: [facility], CT, THORAX WITH CONTRAST, 04/15/2016, 9:49. FINDINGS: Image quality: Excellent. Pulmonary arteries: Pulmonary arteries are normal in size, and demonstrate no intraluminal filling defects to suggest central pulmonary embolism. Lungs and pleura: 4.5 x 4.3 cm medial right upper lobe mass is again noted, enveloping the right upper lobe pulmonary artery with mild extrinsic narrowing. Mass also causes greater than 85% extrinsic narrowing of the superior vena cava. Small dependent right pleural effusion is now present, along with right lower lobe compressive atelectasis. No pneumothorax. Central and peripheral airways are patent. Mediastinum: Heart size is normal, without pericardial effusion. Patient is status post coronary artery bypass grafting. Bulky precarinal adenopathy is unchanged. Thoracic aorta is normal in caliber and enhancement. Esophagus is normal in caliber, without hiatal hernia. Bones and chest wall: No suspicious bony lesions. Ribs and thoracic spine appear intact throughout. Thyroid gland is normal in size. No axillary or supraclavicular adenopathy. Abdomen: Visualized upper abdominal solid organs appear normal in the early arterial phase of enhancement. IMPRESSION: 1. No evidence for central pulmonary embolism. 2. Medial right upper lobe 4.5 cm mass again noted, with extrinsic mass effect on the superior vena cava and right upper lobe pulmonary artery. No current findings of faby superior vena cava syndrome. 3. Interval development of small basal right pleural effusion, as well as patchy right lower lobe compressive atelectasis. 4. Bulky precarinal mediastinal adenopathy as before. Dictated by: Bennie Hernandez M.D. on 05/02/2016 at 20:57 PROCEDURE: CHEST 1 VIEW IMPRESSION: Bulky right perihilar mass lesion as before, without acute cardiopulmonary disease. Dictated by: Bennie Hernandez M.D. on 05/02/2016 at 19:35 PROCEDURE: ABDOMEN WITH AND WITHOUT CONTR FINDINGS: Image quality: Multiple sequences are degraded by patient respiratory motion. Lung bases: There is trace basal right pleural effusion. Heart size is normal, status post median sternotomy. Solid organs: There is diffuse hepatomegaly, with innumerable hypoenhancing hepatic lesions in the right and left hepatic lobes. Gallbladder contains no gallstones or biliary sludge. Biliary system is non dilated. Pancreas is normal in morphology. No adrenal nodules. Both kidneys demonstrate normal size and enhancement, without hydronephrosis. Nodes and vessels: No retroperitoneal or mesenteric adenopathy by size criteria. Aorta and inferior vena cava are normal in size. Bowel and peritoneum: Unenhanced bowel loops are normal in caliber. There is trace free abdominal fluid. Bones and soft tissues: No ventral hernias. Bone marrow is normal in overall signal. IMPRESSION: 1. Findings consistent with innumerable widespread metastases throughout the liver, with resultant hepatomegaly. 2. Trace basal right pleural effusion, possibly malignant. Dictated by: Bennie Hernandez M.D. on 05/02/2016 at 19:45 PROCEDURE: BRAIN WITH AND WITHOUT CONTRAST CSF Spaces: Basal cisterns are patent. No extra-axial fluid collections. Ventricles are normal in size and shape. Brain: No midline shift. No intracranial bleeds or masses. No abnormal intracranial enhancement. There is mild periventricular and deep white matter chronic small vessel ischemic change. The brainstem appears normal. Diffusion-weighted images demonstrate no acute ischemic insults. No chronic ischemic insults. Normal intravascular flow voids are present. Skull and face: Calvarial marrow is normal in background signal. However, several small T1 hypointense marrow space occupying lesions are noted within the clivus. Orbits appear normal. Sinuses: Sinuses and mastoids appear clear. IMPRESSION: 1. No intracranial metastases identified. 2. Findings suspicious for several small bony metastases in the clivus. As such, consider further evaluation with whole-body bone scan. 3. Mild periventricular and deep white matter chronic small vessel ischemic change. Dictated by: Bennie Hernandez M.D. on 04/28/2016 at 12:19 Assessment & Plan 55-year-old female with small cell lung cancer with liver metastases, type II diabetes, and coronary artery disease presents as a transfer from [facility] for inpatient chemotherapy; Dr. Hartmann following. # neutropenic sepsis, acute,not poa -Patient had tachypnea, tachycardia, leukopenia/pancytopenia, worsening lethargy on 05/13 -Blood culture NGTD x2 , chest x-ray unchanged -Markedly elevated pro-calcitonin at 13 , now trending down -Started empirically on antibiotics with cefepime and vancomycin on 05/13,MRSA nares negative, vancomycin discontinued 05/16 # Intractable hypokalemia,acute -Continue to monitor and replace -BMP and Mg q8h -resumed home lasix 40mg po daily for anasarca and CHF # Pancytopenia/neutropenia, acute,not poa -Patient received Neulasta on 05/11, verified from pharmacy -WBC 0.3, platelets 16 today. Received 2 PRBCs and 2 platelets on 05/14,will give 2 platelets today 05/17 -Antiplatelets and heparin subcutaneous remain on hold # Acute hepatic encephalopathy due to liver metastases, POA -recent ammonia 100, started on lactulose . Titrate to 2-3 BMs , lactulose now on hold due to frequent BM #. Small cell right upper lobe lung cancer, present on admission, acute - Management per Dr. Hartmann oncology - Post chemotherapy: Aloxi 0.25mg IV x 1 dose, Emend 150mg IV x 1 dose, Cisplatin 130mg x 1 dose, Etopside 175mg daily x 3 doses - Percocet switched to oxycodone due to liver failure -Completed 3 day of chemotherapy infusion: # Atrial fibrillation with RVR, new onset in Apr 2016,RVR resolved now -RVR Precipitated by sepsis and intractable hypokalemia -On metoprolol 50 mg by mouth twice a day, rate controlled now -Not a candidate for anticoagulation due to low platelets #. Metastatic disease of the liver, present on admission, ongoing - Transaminases elevated but trending down #. Type II diabetes mellitus, present on admission, chronic, active -- A1C 6.2 from records in last december - Patient recently started on Humulin, Januvia, fenofibrate, glimepiride, - Initially started on 11 units of lantus with sliding scale. Increased to 17 units at bedtime on 05/14 - We will monitor blood sugars #. Acute exacerbation of congestive heart failure, present on admission, acute on chronic - On 40 mg Lasix daily with kcl 20meq bid -c/w BB , lisinopril, Lasix -EF 25 % in 2013 on cardiac cath -Increased lisinopril to 10 mg by mouth daily from home dose of 5 mg daily due to high BP. #Anasarca due to liver failure and CHF -Lasix 40mg po daily. will increase Lasix dose once hypokalemia is controlled #. Thrush, present on admission, acute - Continue clotrimazole 10 mg troches 5 times daily # sick euthyroid syndrome,poa -Recent TSH low at 0.364 and low free T4 of 0.8 on 05/11/16. She was started on Synthroid 25 g daily on 05/12 by prior team. No need for thyroid supplement. May as well be contributing to onset of RVR A. fib. Discontinued Synthroid. #. Acute on chronic Anemia requiring transfusion : due to recent blood loss, chronic disease. chemotherapy Chronic, stable problems: #Coronary artery disease - Continue metoprolol tartrate 50 mg twice a day, lisinopril 5 mg daily, hold Plavix 75 mg, . #Hyperlipidemia -Discontinued atorvastatin due to liver metastasis #GERD - Continue Protonix 40 mg by mouth twice a day DVT prophylaxis SCD. Lovenox remains on hold due to thrombocytopenia Disposition: Pending clinical course,patient will need to have IV antibiotics and be monitored for intractable hypokalemia. Patient is improving very slowly. PT eval requested today. She probably can be discharged on Thursday or Thursday if continues to improve. Accepted at [facility] with accepting physician Dr Garcia DNR/DNI , GI Prophylaxis: Not indicated VTE Prophylaxis: Sub-Q Enoxaparin VTE Mechanical Devices: Intermittant Pneumatic CD Resuscitation Status: DNR/DNI:Do Not Resuscitate/Intubate Limited Interventions: Medications and IV Fluid Junior Bardales MD May 17, 2016 13:13
--- NOTE | 2016-05-17 13:26 | NUR ---
NUTRITION FOLLOW-UP: ASSESS: 55 YO female admitted with progressive debilitation related to small cell lung CA with liver mets. Oncology is following; she was transferred to [facility] from [facility] for chemotherapy. Pt has been refusing most of her meals due to nausea and AMS. Lactulose has been discontinued due to loose stool. Palliative care is following. Pt does not want nutrition support. Hospitalist reporting that clinically patient is slowly improving. However, nursing reporting that patient is more passive today. PMHX: DM, A-fib,CHF. DIET: Heart Healthy Consistent Carb. Glucerna and milk on all trays. Refusing PO intake most meals x 11 days. LABS: Na 145, K+ 2.1, Chloride 96, CO2 37, Cr 0.43, Glu 134, Ca 6.8, Phos 2.1, Mg 1.4, Total Bili 3.6, LT 87, AST 106, Alk Phos 519, Alb 2.2, Procalcitonin 6.18. MEDS: Lasix, insulin, morphine. GI: BM x 3 today. WEIGHT: 76.4 kg, BMI 30.0 kg/m2. Admit wt: 72.4 kg SKIN: Small open area above gluteal cleft, 3 lesions around anus. EST.NEEDS: CANCER Kcal: 2139-9993 (25-30 kcals/kg BW) Pro 70-110 (1.0-1.5 g/kg BW) NUTRITION DIAGNOSIS: (1) Inadequate oral intake related to decreased appetite as evidenced by poor po intake x 11 days, persistent nausea and AMS - PERSISTS. INTERVENTION: (1) Continue to send Glucerna and milk on all trays. Will add SF Mighty Shake on all trays as well. (2) Continue to encourage PO intake. (3) Pt. is not currently a candidate for enteral feeding, per her explicit wishes. MONITOR/EVALUATE: PO intake, lab,wt, GI status, nutritional status and POC. Follow per high nutritional risk guidelines.
[2016-05-17] MEDS ORDERED: Potassium Phos (mEq) Inj 40 MEQ in Dextrose 5% 500 ML IV ONE (15:30)
[2016-05-17] MEDS: Albuterol 2.5 mg/3 mL Inhalation Solution NEB PRN (17:53)
[2016-05-17 18:54] LABS: Magnesium 2.4 mg/dL (1.6-2.6)
[2016-05-17] MEDS: OLANZapine Zydis ODT 5 mg Tablet PO SCH (20:39)
[2016-05-17] MEDS: Ondansetron 2 mg/mL 2 mL Inj IVPUSH PRN (20:53)
[2016-05-17] MEDS: Insulin GLARgine 100 Unit/mL Syringe SUBQ SCH (22:31)
--- NOTE | 2016-05-17 23:21 | NUR ---
PAIN/TELEMETRY/NAUSEA: Pt. visiting with her niece at the start of the evening shift. C/o back pain, given 4 mg of IV MS, helpful. Later on gave her HS meds then pt. had an emesis shortly after taking her pills. Given 4 mg of IV Zofran, no more emesis. Was able to take her K+ tablet with no n/v. First K+ rider completed, then started K+ phosphate to run for 8 hr. Pt. has only one IV PICC line unable to run antibiotics at this time. Pt. needs a second K+ Robert 30meq tonight as per Dr. Tyler new orders. All pt's meds are off the normal schedule due to no other IV access. When pt. was throwing up received call from lab animal technologist to report a few beats of Vtach and elevated heart rate for a short period of time. At the same time we had to reposition her in bed and clean her bottom she was incontinent of small stool. Skin care done and fresh gown given. At this time 2340 lab animal technologist reports normal sinus rhythm and with PVCs and heart rate in the 80s. Pt. resting asleep in bed. DJ=[id number] Given 3 units of reg. Ins. Care continues.
[2016-05-18] VITALS (9 sets, daily range): BP systolic 117–150; BP diastolic 55–74; PULSE 90–110; RESP 18–20; O2SAT 96–99
[2016-05-18] MEDS: Cefepime Inj 1,000 MG in Dextrose 5% Minibag Plus 50 ML IV SCH ×3 (03:00→20:08)
[2016-05-18] MEDS: Insulin Human REGular 300 Unit/3 mL Inj SUBQ SCH ×4 (03:17→21:26)
[2016-05-18] MEDS: Clotrimazole Troche 10 mg Tablet MT SCH ×5 (06:00→21:32)
[2016-05-18 10:07] LABS: Mean Corpuscular Hemoglobin 30.2 pg (27.0-35.0); Mean Corpuscular Volume 92.6 fL (81-100); Platelet Count 43 bil/L (150-400)
[2016-05-18] MEDS: Pantoprazole 40 mg ER24 Tablet PO SCH ×2 (10:22→18:48)
[2016-05-18] MEDS: Potassium Chloride 20 mEq SR Tablet PO SCH ×2 (10:22→21:28)
[2016-05-18] MEDS: Albuterol 2.5 mg/3 mL Inhalation Solution NEB PRN (10:24)
[2016-05-18 10:59] LABS: Magnesium 1.7 mg/dL (1.6-2.6); Phosphorus 2.5 mg/dL (2.5-4.9)
[2016-05-18 11:39] LABS: TROPONIN T 0.036 ug/L (0.0-0.011)
[2016-05-18] MEDS ORDERED: Potassium Chloride Inj 30 MEQ in Dextrose 5% 100 ML IV ONE ×2 (12:35→15:00)
[2016-05-18] MEDS ORDERED: Calcium GLUCO 10% (Gm) Inj 2 GM in 0.9% Sodium Chloride 100 ML IV ONE (12:35)
[2016-05-18] MEDS ORDERED: Magnesium Sulf 2 Gm/50mL Water 2 GM in IV Premix 1 EACH IV ONE (12:35)
[2016-05-18 14:28] LABS: APPEARANCE,URINE HAZY (CLEAR,HAZY); COLOR,URINE YELLOW (YELLOW); OCCULT BLOOD,URINE LARGE (NEGATIVE); PH,URINE 5.5 (5.0-8.0)
[2016-05-18 14:29] LABS: YEAST,URINE MODERATE (NONE SEEN)
--- NOTE | 2016-05-18 14:50 | PCM.PNMED ---
Subjective Date of Service May 18, 2016 Subjective unchanged clinical status, continues to have generalized weakness. Continues to have hypokalemia and low magnesium. Continues to have pancytopenia. Exam Vital Signs Vital Sign - Last Date Time Temp Pulse Resp B/P Pulse Ox O2 Delivery O2 Flow Rate FiO2 05/18/16 13:34 36.5 96 18 139/73 97 Nasal Cannula 2.00 Intake and Output 05/17/16 05/17/16 05/18/16 Cumulative From/Thru 15:00 23:00 07:00 05/06/16 18:10 - 05/18/16 06:22 Intake Total 721 ml 502 ml 627 ml 33231 ml Output Total 1100 ml 1200 ml 57420 ml Balance -379 ml 502 ml -573 ml -2312 ml Intake Oral 50 ml 100 ml 4620 ml IV Total 214 ml 502 ml 527 ml 71369 ml Packed Cells 1473 ml Platelets 457 ml 662 ml Output Urine Total 1100 ml 1200 ml 78433 ml Stool Total 2 ml # Bowel Movements 1 10 Exam Gen.: Laying in bed, appears jaundiced, alert and oriented, anasarca HEENT: Normocephalic, atraumatic Extremities: Ecchymosis over her posterior left arm. Right arm has PICC line and it is covered in dressings. Heart: Irregular, tachycardic Lungs: no crackles or wheezing anteriorly. Posteriorly she is very diminished right greater than left Abdomen: Soft Neuro: Alert and oriented IVs and Medications Medications Reviewed: Medications were reviewed in detail Lab and Diagnostics Result Diagram: 05/18/16 0946 05/18/16 0946 Microbiology Blood culture negative times 2 X-Rays, CTs and MRIs PROCEDURE: PE STUDY (CTA CHEST) INDICATIONS: 55 year-old female with metastatic small cell lung carcinoma, with hypoxia and shortness of breath. COMPARISON: [facility], CT, THORAX WITH CONTRAST, 04/15/2016, 9:49. FINDINGS: Image quality: Excellent. Pulmonary arteries: Pulmonary arteries are normal in size, and demonstrate no intraluminal filling defects to suggest central pulmonary embolism. Lungs and pleura: 4.5 x 4.3 cm medial right upper lobe mass is again noted, enveloping the right upper lobe pulmonary artery with mild extrinsic narrowing. Mass also causes greater than 85% extrinsic narrowing of the superior vena cava. Small dependent right pleural effusion is now present, along with right lower lobe compressive atelectasis. No pneumothorax. Central and peripheral airways are patent. Mediastinum: Heart size is normal, without pericardial effusion. Patient is status post coronary artery bypass grafting. Bulky precarinal adenopathy is unchanged. Thoracic aorta is normal in caliber and enhancement. Esophagus is normal in caliber, without hiatal hernia. Bones and chest wall: No suspicious bony lesions. Ribs and thoracic spine appear intact throughout. Thyroid gland is normal in size. No axillary or supraclavicular adenopathy. Abdomen: Visualized upper abdominal solid organs appear normal in the early arterial phase of enhancement. IMPRESSION: 1. No evidence for central pulmonary embolism. 2. Medial right upper lobe 4.5 cm mass again noted, with extrinsic mass effect on the superior vena cava and right upper lobe pulmonary artery. No current findings of faby superior vena cava syndrome. 3. Interval development of small basal right pleural effusion, as well as patchy right lower lobe compressive atelectasis. 4. Bulky precarinal mediastinal adenopathy as before. Dictated by: Bennie Hernandez M.D. on 05/02/2016 at 20:57 PROCEDURE: CHEST 1 VIEW IMPRESSION: Bulky right perihilar mass lesion as before, without acute cardiopulmonary disease. Dictated by: Bennie Hernandez M.D. on 05/02/2016 at 19:35 PROCEDURE: ABDOMEN WITH AND WITHOUT CONTR FINDINGS: Image quality: Multiple sequences are degraded by patient respiratory motion. Lung bases: There is trace basal right pleural effusion. Heart size is normal, status post median sternotomy. Solid organs: There is diffuse hepatomegaly, with innumerable hypoenhancing hepatic lesions in the right and left hepatic lobes. Gallbladder contains no gallstones or biliary sludge. Biliary system is non dilated. Pancreas is normal in morphology. No adrenal nodules. Both kidneys demonstrate normal size and enhancement, without hydronephrosis. Nodes and vessels: No retroperitoneal or mesenteric adenopathy by size criteria. Aorta and inferior vena cava are normal in size. Bowel and peritoneum: Unenhanced bowel loops are normal in caliber. There is trace free abdominal fluid. Bones and soft tissues: No ventral hernias. Bone marrow is normal in overall signal. IMPRESSION: 1. Findings consistent with innumerable widespread metastases throughout the liver, with resultant hepatomegaly. 2. Trace basal right pleural effusion, possibly malignant. Dictated by: Bennie Hernandez M.D. on 05/02/2016 at 19:45 PROCEDURE: BRAIN WITH AND WITHOUT CONTRAST CSF Spaces: Basal cisterns are patent. No extra-axial fluid collections. Ventricles are normal in size and shape. Brain: No midline shift. No intracranial bleeds or masses. No abnormal intracranial enhancement. There is mild periventricular and deep white matter chronic small vessel ischemic change. The brainstem appears normal. Diffusion-weighted images demonstrate no acute ischemic insults. No chronic ischemic insults. Normal intravascular flow voids are present. Skull and face: Calvarial marrow is normal in background signal. However, several small T1 hypointense marrow space occupying lesions are noted within the clivus. Orbits appear normal. Sinuses: Sinuses and mastoids appear clear. IMPRESSION: 1. No intracranial metastases identified. 2. Findings suspicious for several small bony metastases in the clivus. As such, consider further evaluation with whole-body bone scan. 3. Mild periventricular and deep white matter chronic small vessel ischemic change. Dictated by: Bennie Hernandez M.D. on 04/28/2016 at 12:19 Assessment & Plan 55-year-old female with small cell lung cancer with liver metastases, type II diabetes, and coronary artery disease presents as a transfer from [facility] for inpatient chemotherapy; Dr. Hartmann following. # Intractable hypokalemia,acute -Etiology of hypokalemia unclear at this point. Due to diuresis vs GI loss vs hyperaldosteronism vs RTAs - Initially thought due to diuretics i.e Lasix 40 mg by mouth daily which is her home dose. This has been on hold for a days and dose lowered to 20 mg by mouth daily for a few days but did not make any difference. And also her urine output is on average around 2.5 L ,her net balance since admission is -2.5 L on I/O.admission weight 72kg and now 75 ( +3kgs on weight ) . I doubt Lasix alone is causing this intractable hypokalemia -She has 3 large bowel movements a day on average for the past few days due to lactulose for hepatic encephalopathy with ammonia level of 100. Lactulose discontinued yesterday 05/17. it can be contributing but does not look to be the primary cause. -Cortisol levels checked initially due to concern for adrenal insufficiency/ adrenal metastases due to hypotension but cortisol level is actually elevated. May need to rule out hyperaldosteronism. I will check plasma renin concentration, aldosterone concentration A/R ratio tomorrow morning. She has been on lisinopril 5 mg daily which is her home dose and increased dose to 10 mg by mouth daily on 05/16 for better blood pressure control, CHF optimization and to see if it helps with hypokalemia. I switched her lisinopril to spironolactone 50 mg by mouth daily today 05/18 to help with hypokalemia.both lisinopril and spironolactone interfere with interpretation of renin/ aldosterone results -Will send urine electrolytes -i will consult nephrology for this intractable hypokalemia -Continue to monitor and replace -BMP and Mg q8h -resumed home lasix 40mg po daily for anasarca and CHF # neutropenic sepsis, acute,not poa -Patient had tachypnea, tachycardia, leukopenia/pancytopenia, worsening lethargy on 05/13 -Blood culture NGTD x2 , chest x-ray unchanged -Markedly elevated pro-calcitonin at 13 , now trending down -Started empirically on antibiotics with cefepime and vancomycin on 05/13,MRSA nares negative, vancomycin discontinued 05/16. plan to discontinue antibiotics the next 2 days # Pancytopenia/neutropenia, acute,not poa -Patient received Neulasta on 05/11, verified from pharmacy -WBC 0.3, platelets 43 today. Received 2 PRBCs and 2 platelets on 05/14, 2 platelets on 05/17 -Antiplatelets and heparin subcutaneous remain on hold # Acute hepatic encephalopathy due to liver metastases, POA -recent ammonia 100, started on lactulose . Titrate to 2-3 BMs , lactulose now on hold due to frequent BM #. Small cell right upper lobe lung cancer, present on admission, acute - Management per Dr. Hartmann oncology - Post chemotherapy: Aloxi 0.25mg IV x 1 dose, Emend 150mg IV x 1 dose, Cisplatin 130mg x 1 dose, Etopside 175mg daily x 3 doses - Percocet switched to oxycodone due to liver failure -Completed 3 day of chemotherapy infusion: # Atrial fibrillation with RVR, new onset in Apr 2016,RVR resolved now -RVR Precipitated by sepsis and intractable hypokalemia -On metoprolol 50 mg by mouth twice a day, rate controlled now -Not a candidate for anticoagulation due to low platelets #. Metastatic disease of the liver, present on admission, ongoing - Transaminases elevated but trending down #. Type II diabetes mellitus, present on admission, chronic, active -- A1C 6.2 from records in last december - Patient recently started on Humulin, Januvia, fenofibrate, glimepiride, - Initially started on 11 units of lantus with sliding scale. Increased to 17 units at bedtime on 05/14 - We will monitor blood sugars #. Acute exacerbation of congestive heart failure, present on admission, acute on chronic - On 40 mg Lasix daily with kcl 20meq bid -c/w BB , lisinopril, Lasix -EF 25 % in 2013 on cardiac cath -Increased lisinopril to 10 mg by mouth daily from home dose of 5 mg daily due to high BP. #Anasarca due to liver failure and CHF -Lasix 40mg po daily. will increase Lasix dose once hypokalemia is controlled # sick euthyroid syndrome,poa -Recent TSH low at 0.364 and low free T4 of 0.8 on 05/11/16. She was started on Synthroid 25 g daily on 05/12 by prior team. No need for thyroid supplement. May as well be contributing to onset of RVR A. fib. Discontinued Synthroid. #. Acute on chronic Anemia requiring transfusion : due to recent blood loss, chronic disease. chemotherapy Chronic, stable problems: #Coronary artery disease - Continue metoprolol tartrate 50 mg twice a day, lisinopril 5 mg daily, hold Plavix 75 mg, . #Hyperlipidemia -Discontinued atorvastatin due to liver metastasis #GERD - Continue Protonix 40 mg by mouth twice a day DVT prophylaxis SCD. Lovenox remains on hold due to thrombocytopenia Disposition: Pending clinical course,patient will need to have IV antibiotics and be monitored for intractable hypokalemia. Patient is improving very slowly. PT eval requested today. She probably can be discharged 2-3 days if continues to improve. Accepted at [facility] with accepting physician Dr Garcia DNR/DNI , GI Prophylaxis: Not indicated VTE Prophylaxis: Sub-Q Enoxaparin VTE Mechanical Devices: Intermittant Pneumatic CD Resuscitation Status: DNR/DNI:Do Not Resuscitate/Intubate Limited Interventions: Medications and IV Fluid Junior Bardales MD May 18, 2016 14:50 Junior Bardales MD May 18, 2016 14:50
[2016-05-18] MEDS: Ondansetron 2 mg/mL 2 mL Inj IVPUSH PRN ×2 (17:57→22:36)
[2016-05-18] MEDS: Insulin GLARgine 100 Unit/mL Syringe SUBQ SCH (21:28)
[2016-05-18] MEDS: OLANZapine Zydis ODT 5 mg Tablet PO SCH (21:29)
[2016-05-18 22:05] LABS: Magnesium 2.1 mg/dL (1.6-2.6)
[2016-05-18] MEDS ORDERED: 0.9% Sodium Chloride 250 ML ONE (22:53)
[2016-05-19 00:14] VITALS: BP 122/69; PULSE 103; RESP 20; O2SAT 99
--- NOTE | 2016-05-19 01:58 | NUR ---
ELECTROLYTES/PAIN: Completed a bag of K+ Robert, then sent a blood sample to lab for lab work(yellow top) sent at 2109. Lab result shows K+=3.1, Chloride 91, Calcium 7.0, sent cook page to night hospitalist. Waiting for call back. Pt. also has been having diarrhea this shift, liquid stools x2 so far this shift. Repositioned in bed Q2 hr for side to side, has very excoriated buttocks. Skin care and incontinent care done. Given IV Morphine for c/o back pain. Pt. not eating but requested a piece of cheese tonight, took only one bite and left the rest on the table. On going care.
[2016-05-19] MEDS: Insulin Human REGular 300 Unit/3 mL Inj SUBQ SCH ×2 (02:30→08:30)
[2016-05-19] MEDS: Ondansetron 2 mg/mL 2 mL Inj IVPUSH PRN ×2 (02:46→07:15)
[2016-05-19] MEDS: Cefepime Inj 1,000 MG in Dextrose 5% Minibag Plus 50 ML IV SCH ×2 (03:04→10:26)
[2016-05-19 04:12] VITALS: BP 114/71; PULSE 101; RESP 18; O2SAT 98
[2016-05-19] MEDS: Pantoprazole 40 mg ER24 Tablet PO SCH (05:49)
[2016-05-19] MEDS: Clotrimazole Troche 10 mg Tablet MT SCH ×2 (05:50→10:00)
[2016-05-19 06:12] VITALS: PULSE 99; RESP 16; O2SAT 89
[2016-05-19] MEDS: Albuterol 2.5 mg/3 mL Inhalation Solution NEB PRN (06:12)
[2016-05-19 06:34] LABS: Mean Corpuscular Hemoglobin 29.3 pg (27.0-35.0); Mean Corpuscular Volume 93.5 fL (81-100)
[2016-05-19 06:41] LABS: Magnesium 1.8 mg/dL (1.6-2.6)
[2016-05-19 06:42] LABS: Platelet Count 17 bil/L (150-400)
--- NOTE | 2016-05-19 07:00 | NUR ---
pt This nurse notified pt had recently converted to Afib w/ RVR, rate 140s-160s, pt appears to be in pain, states "back pain" like usual only much worse, 4mg MS given, sats mid 90s on 4L, unable to obtain BP with autocuff or manual. pt still answering but appears distressed. Respirations irregular with some apnea. Notified Dr Bardales, he gave orders to give fluid bolus, if BP increased then try to give Diltiazem IVP, Pt was given 1500cc boli altogether but did not improved, she continued to become increasingly lethargic/obtunded and continued without measurable BP. Dr Bardales had discussion with family per phone and they decided to convert to comfort care. By this time pt was no longer responsive, the family came and stayed with her until she passed.
[2016-05-19 07:08] LABS: Phosphorus 1.6 mg/dL (2.5-4.9)
[2016-05-19] MEDS ORDERED: Diltiazem 5 mg/mL 5 mL Inj ONE (07:37)
[2016-05-19] MEDS ORDERED: 0.9% Sodium Chloride 1,000 ML IV ONE (07:40)
[2016-05-19] MEDS ORDERED: 0.9% Sodium Chloride 500 ML IV ONE (07:40)
[2016-05-19] MEDS ORDERED: Diltiazem 5 mg/mL 5 mL Inj IVPUSH ONE (07:40)
[2016-05-19] MEDS ORDERED: Potassium Chloride Inj 30 MEQ in Dextrose 5% 100 ML IV ONE (07:50)
[2016-05-19] MEDS ORDERED: Calcium GLUCO 10% (Gm) 1 Gm/10 mL 50 mL Inj IV ONE (07:50)
[2016-05-19] MEDS ORDERED: Potassium Phos (mEq) Inj 40 MEQ in Dextrose 5% 500 ML IV ONE (07:50)
[2016-05-19] MEDS ORDERED: SODIUM CHLORIDE 0.9% IV ONE (08:25)
[2016-05-19] MEDS ORDERED: CALCIUM GLUCO IV ONE (08:25)
[2016-05-19] MEDS: Potassium Chloride 20 mEq SR Tablet PO SCH (08:30)
[2016-05-19 08:34] VITALS: RESP 12; O2SAT 92
[2016-05-19 09:15] VITALS: PULSE 100
--- NOTE | 2016-05-19 14:37 | NUR ---
body transferred to [facility] notified, but pt is a possible eye donation candidate, therefore she will need to be left in our morgue until the donation people are finished with her. At that point our housekeeping lead with notifotto Gallegos's to come
--- NOTE | 2016-05-19 18:32 | PCM.DC.MEX ---
Discharge Summary Date of Service May 19, 2016 Dates of Hospitalization Date of Hospital Admission May 06, 2016 at 17:57 Date of Expiration: May 19, 2016 Time of Expiration: 12:25 Providers: Admitting Physician: Eric Yeung MD Primary Care Physician: Cesar Attending Physician: Hossein Jeong MD Diagnosis at Time of # multiorgan failure due to shock due to cardiogenic shock due to rapid afib and suspected severe neutropenic sepsis # Intractable hypokalemia,acute # neutropenic sepsis, acute,not poa # Pancytopenia/neutropenia, acute,not poa # Acute hepatic encephalopathy due to liver metastases, POA #. 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 Metastatic disease of the liver, present on admission, ongoing #. Type II diabetes mellitus, present on admission, chronic, active #. Acute exacerbation of congestive heart failure, present on admission, acute on chronic #Anasarca due to liver failure and CHF # sick euthyroid syndrome,poa #. Acute on chronic Anemia requiring transfusion : due to recent blood loss, chronic disease. chemotherapy Chronic, stable problems: #Coronary artery diseas #Hyperlipidemia #GERD Consultations oncology Dr Hartmann palliative Dr Hernandez Procedures XRay, CTs & MRIs PROCEDURE: PE STUDY (CTA CHEST) INDICATIONS: 55 year-old female with metastatic small cell lung carcinoma, with hypoxia and shortness of breath. COMPARISON: [facility], CT, THORAX WITH CONTRAST, 04/15/2016, 9:49. FINDINGS: Image quality: Excellent. Pulmonary arteries: Pulmonary arteries are normal in size, and demonstrate no intraluminal filling defects to suggest central pulmonary embolism. Lungs and pleura: 4.5 x 4.3 cm medial right upper lobe mass is again noted, enveloping the right upper lobe pulmonary artery with mild extrinsic narrowing. Mass also causes greater than 85% extrinsic narrowing of the superior vena cava. Small dependent right pleural effusion is now present, along with right lower lobe compressive atelectasis. No pneumothorax. Central and peripheral airways are patent. Mediastinum: Heart size is normal, without pericardial effusion. Patient is status post coronary artery bypass grafting. Bulky precarinal adenopathy is unchanged. Thoracic aorta is normal in caliber and enhancement. Esophagus is normal in caliber, without hiatal hernia. Bones and chest wall: No suspicious bony lesions. Ribs and thoracic spine appear intact throughout. Thyroid gland is normal in size. No axillary or supraclavicular adenopathy. Abdomen: Visualized upper abdominal solid organs appear normal in the early arterial phase of enhancement. IMPRESSION: 1. No evidence for central pulmonary embolism. 2. Medial right upper lobe 4.5 cm mass again noted, with extrinsic mass effect on the superior vena cava and right upper lobe pulmonary artery. No current findings of faby superior vena cava syndrome. 3. Interval development of small basal right pleural effusion, as well as patchy right lower lobe compressive atelectasis. 4. Bulky precarinal mediastinal adenopathy as before. Dictated by: Bennie Hernandez M.D. on 05/02/2016 at 20:57 PROCEDURE: CHEST 1 VIEW IMPRESSION: Bulky right perihilar mass lesion as before, without acute cardiopulmonary disease. Dictated by: Bennie Hernandez M.D. on 05/02/2016 at 19:35 PROCEDURE: ABDOMEN WITH AND WITHOUT CONTR FINDINGS: Image quality: Multiple sequences are degraded by patient respiratory motion. Lung bases: There is trace basal right pleural effusion. Heart size is normal, status post median sternotomy. Solid organs: There is diffuse hepatomegaly, with innumerable hypoenhancing hepatic lesions in the right and left hepatic lobes. Gallbladder contains no gallstones or biliary sludge. Biliary system is non dilated. Pancreas is normal in morphology. No adrenal nodules. Both kidneys demonstrate normal size and enhancement, without hydronephrosis. Nodes and vessels: No retroperitoneal or mesenteric adenopathy by size criteria. Aorta and inferior vena cava are normal in size. Bowel and peritoneum: Unenhanced bowel loops are normal in caliber. There is trace free abdominal fluid. Bones and soft tissues: No ventral hernias. Bone marrow is normal in overall signal. IMPRESSION: 1. Findings consistent with innumerable widespread metastases throughout the liver, with resultant hepatomegaly. 2. Trace basal right pleural effusion, possibly malignant. Dictated by: Bennie Hernandez M.D. on 05/02/2016 at 19:45 PROCEDURE: BRAIN WITH AND WITHOUT CONTRAST CSF Spaces: Basal cisterns are patent. No extra-axial fluid collections. Ventricles are normal in size and shape. Brain: No midline shift. No intracranial bleeds or masses. No abnormal intracranial enhancement. There is mild periventricular and deep white matter chronic small vessel ischemic change. The brainstem appears normal. Diffusion-weighted images demonstrate no acute ischemic insults. No chronic ischemic insults. Normal intravascular flow voids are present. Skull and face: Calvarial marrow is normal in background signal. However, several small T1 hypointense marrow space occupying lesions are noted within the clivus. Orbits appear normal. Sinuses: Sinuses and mastoids appear clear. IMPRESSION: 1. No intracranial metastases identified. 2. Findings suspicious for several small bony metastases in the clivus. As such, consider further evaluation with whole-body bone scan. 3. Mild periventricular and deep white matter chronic small vessel ischemic change. Dictated by: Bennie Hernandez M.D. on 04/28/2016 at 12:19 Brief History as per HPI on 05/06/[address] Yeung 55-year-old female with small cell lung cancer with liver metastases, type II diabetes, and coronary artery disease presents as a transfer from [facility] for inpatient chemotherapy; Dr. Hartmann following. She was admitted to [facility] on 05/02/2016 for hyperglycemia, possible pneumonia, acute exacerbation of CHF, and generalized weakness. Patient currently states that she is tired of being tired. She wants to get well and get home. She is having pain in her bottom and back. She currently has a headache that she rates at 5 out of 10, these occur occasionally for her. She is having consistent shortness of breath and central chest heaviness for a couple of days. She is feeling nauseous in reports vomiting daily. She also has back pain and pain in her tailbone. She also complains of being generally weak. Since her first Chemotherapy last week her mental status has deteriorated as her Bilirubin and LFT's have climbed. Her heme parameters are also showing signs of pancytopenia. This is the expected response, in the expected window of time after her particular type of chemotherapy, but this also adds to the poor prognosis and makes recovery to baseline, or improvement from baseline, very unlikely. Hospital Course 55-year-old female with small cell lung cancer with liver metastases, type II diabetes, and coronary artery disease presents as a transfer from [facility] for inpatient chemotherapy; Dr. aHrtmann following. # multiorgan failure due to shock due to cardiogenic shock due to rapid afib vs suspected severe neutropenic sepsis patient converted to rapid Afib rate in 150's at 6:43 and became hypotensive and unresponsive with gasping agonal breathing .started IV fluids, give 1.5 L normal saline. ,considered cardioversion but poor candidate and also not consistent with patient and daughter wishes.also considered amiodarone but BP undetectable,noted persistent hypokalemia .low mg,k,low platelets ,hb,wbc, ordered replacement for electrolytes . Planned to transfuse platelets and PRBC. -Called daughter and updated her about her current status. She opts for comfort care. Multiple possibilities of acute worsening. Cardiogenic shock due to rapid A. fib due to electrolyte abnormality is he most likely versus septic shock from neutropenic sepsis from any source versus PE given bed bound patient with no DVT prophylaxis due to severe thrombocytopenia /only SCD used versus possible bleeding somewhere given drop in hemoglobin and very low platelets started Comfort Care measures as family preference . Updated palliative.patient's mom,daughter and sisters arrived,patient at 12: 25pm on 05/19/16 # Intractable hypokalemia,acute -Etiology of hypokalemia multifactorial but most likley due to lasix given metabolic alkalosis BUT holding lasix and lowering dose didnot help - Due to diuresis vs GI loss vs hyperaldosteronism vs RTAs - Initially thought due to diuretics i.e Lasix 40 mg by mouth daily which is her home dose. This has been on hold for a days and dose lowered to 20 mg by mouth daily for a few days but did not make any difference. And also her urine output is on average around 2.5 L ,her net balance since admission is -2.5 L on I/O.admission weight 72kg and now 75 ( +3kgs on weight ) . I doubt Lasix alone is causing this intractable hypokalemia.She has been on judious and closely followed replacement protocol but remained interactable -She has 2- 3 bowel movements /loose stool a day on average for the past few days due to lactulose for hepatic encephalopathy with ammonia level of 100. Lactulose discontinued on 05/17. it can be contributing but does not look to be the primary cause. -Cortisol levels checked initially due to concern for adrenal insufficiency/ adrenal metastases due to hypotension but cortisol level is actually elevated. concern for hyperaldosteronism. sent plasma renin concentration, aldosterone concentration A/R ratio and pending. She has been on lisinopril 5 mg daily which is her home dose and increased dose to 10 mg by mouth daily on 05/16 for better blood pressure control, CHF optimization and to see if it helps with hypokalemia. I switched her lisinopril to spironolactone 50 mg by mouth daily on 05/18 to help with hypokalemia.both lisinopril and spironolactone interfere with interpretation of renin/aldosterone results -case was discussed with nephrology Dr Choudhury on 05/18 over the phone -discontinued lasix 40mg po daily for anasarca and CHF # neutropenic sepsis, acute,not poa -Patient had tachypnea, tachycardia, leukopenia/pancytopenia, worsening lethargy on 05/13 -Blood culture NGTD x2 , chest x-ray unchanged -Markedly elevated pro-calcitonin at 13 , trended down -Started empirically on antibiotics with cefepime and vancomycin on 05/13,MRSA nares negative, vancomycin discontinued 05/16. # Pancytopenia/neutropenia, acute,not poa -Patient received Neulasta on 05/11, verified from pharmacy -WBC 0.3, platelets 17 today. Received 2 PRBCs and 2 platelets on 05/14, 2 platelets on 05/17 -Antiplatelets and heparin subcutaneous remained on hold # Acute hepatic encephalopathy due to liver metastases, POA,resolved -recent ammonia 100, started on lactulose . Titrated to 2-3 BMs , lactulose on hold due to frequent BM.mentation had also improved #. 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 Hartmann oncology - recieved chemotherapy: Aloxi 0.25mg IV x 1 dose, Emend 150mg IV x 1 dose, Cisplatin 130mg x 1 dose, Etopside 175mg daily x 3 doses - Percocet switched to oxycodone due to liver failure -Completed 3 day of chemotherapy infusion: # Atrial fibrillation with RVR, new onset in Apr 2016,RVR ,episodes of RVR with hypokalemia -RVR Precipitated by sepsis and intractable hypokalemia -On metoprolol 50 mg by mouth twice a day, -Not a candidate for anticoagulation due to low platelets #. Metastatic disease of the liver, present on admission, ongoing - Transaminases elevated but trended down #. Type II diabetes mellitus, present on admission, chronic, active -- A1C 6.2 from records in last december - Patient recently started on Humulin, Januvia, fenofibrate, glimepiride, - Initially started on 11 units of lantus with sliding scale. Increased to 17 units at bedtime on 05/14 #. Acute exacerbation of congestive heart failure, present on admission, acute on chronic - On 40 mg Lasix daily with kcl 20meq bid -treated with BB , lisinopril, Lasix -EF 25 % in 2013 on cardiac cath -Increased lisinopril to 10 mg by mouth daily from home dose of 5 mg daily due to high BP. #Anasarca due to liver failure and CHF -was on Lasix 40mg po daily. # sick euthyroid syndrome,poa -Recent TSH low at 0.364 and low free T4 of 0.8 on 05/11/16. She was started on Synthroid 25 g daily on 05/12 by prior team. No need for thyroid supplement. May as well be contributing to onset of RVR A. fib. Discontinued Synthroid. #. Acute on chronic Anemia requiring transfusion : due to recent blood loss, chronic disease. chemotherapy Chronic, stable problems: #Coronary artery disease - treated with metoprolol tartrate 50 mg twice a day, lisinopril 5 mg daily, hold Plavix 75 mg, . #Hyperlipidemia -Discontinued atorvastatin due to liver metastasis #GERD - treated with Protonix 40 mg by mouth twice a day DVT prophylaxis SCD. Lovenox remained on hold due to thrombocytopenia on 05/19/16 at 1225 on comfort care DNR/DNI , Exam Test 05/07/16 06:10 05/08/16 13:27 05/11/16 12:30 05/11/16 14:00 Hemoglobin A1c 9.9% (4.8-5.6) Triglycerides Level 360mg/dL (0-149) Cholesterol Level 124mg/dL (100-199) LDL Cholesterol, Calculated 28.000mg/dL (0-99) VLDL Cholesterol 72.000mg/dL HDL Cholesterol 24mg/dL (>39) Cholesterol/HDL Ratio 5.17 (0.0-4.4) Prothrombin Time 14.2sec (8.1-12.5) Prothromb Time International Ratio 1.32ratio Activated Partial Thromboplast Time 41.6sec (22.8-33.0) Iron Level 201ug/dL (35-150) Total Iron Binding Capacity < 218ug/dL (250-450) Percent Iron Saturation > 92%sat (15-50) Unsaturated Iron Binding < 16.8ug/dL Ferritin 1605ng/mL (13-150) Vitamin B12 Level >1999pg/mL (211-946) Folate 11.7ng/mL (>3.0) Thyroid Stimulating Hormone (TSH) 0.364uIU/mL (0.450-4.500) Free Thyroxine 0.80ng/dL (0.82-1.77) Hepatitis A IgM Antibody Negative (Negative) Hepatitis B Surface Antigen Negative (Negative) Hepatitis B Core IgM Antibody Negative (Negative) Hepatitis C Antibody <0.1s/co ratio (0.0-0.9) Hepatitis C Comment Comment (.) Hold Urine Received (Received) Test 05/12/16 04:15 05/13/16 05:50 05/13/16 11:20 05/13/16 11:35 Uric Acid 7.9mg/dL (2.6-7.2) Direct Bilirubin 4.5mg/dL (0.0-0.3) Band Neutrophils % 5% (1-5) Ammonia 106ug/dL (18-53) Urine Ictotest Positive (Negative) Test 05/16/16 04:00 05/18/16 09:46 05/18/16 14:11 05/18/16 21:10 Vancomycin Level Trough 24.4mcg/mL Troponin T 0.036ug/L (0.0-0.011) Pro-B-Type Natriuretic Peptide 45295gg/mL (0-287) Procalcitonin 6.17ng/mL (0.00-0.08) Urine Color Yellow (YELLOW) Urine Appearance Hazy (CLEAR,HAZY) Urine pH 5.5 (5.0-8.0) Urine Specific [place] 1.025 (1.003-1.035) Urine Protein 30mg/dL (NEG,TRACE) Urine Glucose (UA) 100mg/dL (NEGATIVE) Urine Ketones Negativemg/dL (NEGATIVE) Urine Occult Blood Large (NEGATIVE) Urine Nitrite Negative (NEGATIVE) Urine Bilirubin Negative (NEGATIVE) Urine Urobilinogen 1.0mg/dL (NORMAL) Urine Leukocyte Esterase Negative (NEGATIVE) Urine RBC 3-10/hpf (0-2) Urine WBC 0-5/hpf (0-5) Urine Epithelial Cells Few/hpf (NONE-MOD) Urine Crystals None seen (NONE SEEN) Urine Bacteria Few/hpf (NONE-FEW) Urine Hyaline Casts None/lpf (NONE) Urine Granular Casts None seen (NONE SEEN) Urine Waxy Casts None seen (NONE SEEN) Urine Red Blood Cell Casts None seen (NONE SEEN) Urine White Blood Cell Casts None seen (NONE SEEN) Urine Mucus None seen (None Seen) Urine Trichomonas None seen (NONE SEEN) Urine Yeast Moderate (NONE SEEN) Urinalysis Comment None Urine Culture Reflexed Not indicated Urine Osmolality 384mOs/kH2O (250-1200) Urine Random Creatinine 11mg/dL (15-278) Urine Random Sodium 92mEq/L Urine Random Potassium 56.7mEq/L Total Creatine Kinase 231U/L (21-215) Test 05/19/16 05:40 White Blood Count 0.3th/mm3 (3.8-10.1) Red Blood Count 2.46mil/mm3 (3.90-5.20) Hemoglobin 7.2g/dL (12.0-15.6) Hematocrit 23.0% (35.0-46.0) Mean Corpuscular Volume 93.5fL (81-100) Mean Corpuscular Hemoglobin 29.3pg (27.0-35.0) Mean Corpuscular Hemoglobin Concent 31.3% (32.0-37.0) Red Cell Distribution Width 14.5% (12.3-15.4) Platelet Count 17bil/L (150-400) Neutrophils (%) (Auto) % (40-74) Lymphocytes (%) (Auto) % (14-46) Monocytes (%) (Auto) % (4-12) Eosinophils (%) (Auto) % (0-5) Basophils (%) (Auto) % (0-3) Sodium Level 145mEq/L (134-144) Potassium Level 2.6mEq/L (3.5-5.2) Chloride Level 94mEq/L (97-108) Carbon Dioxide Level 40mmol/L (18-29) Blood Urea Nitrogen 18mg/dL (6-24) Creatinine 0.48mg/dL (0.57-1.00) Estimat Glomerular Filtration Rate 192mL/min (>59) Glucose Level 167mg/dL (60-99) Calcium Level 6.8mg/dL (8.5-10.1) Phosphorus Level 1.6mg/dL (2.5-4.9) Magnesium Level 1.8mg/dL (1.6-2.6) Total Bilirubin 3.5mg/dL (0.0-1.2) Aspartate Amino Transf (AST/SGOT) 59U/L (0-50) Alanine Aminotransferase (ALT/SGPT) 77U/L (0-32) Alkaline Phosphatase 431U/L (25-150) Total Protein 4.0g/dL (6.4-8.4) Albumin 2.4g/dL (3.4-5.0) Microbiology Results Blood culture negative times 2 copies to: Ace Hartmann MD, Melaku MD May 19, 2016 18:32 copies to: Ace Hartmann MD, Melaku MD May 19, 2016 18:32
[2016-05-24 15:07] LABS: Aldosterone/Renin Ratio <1.3 (0.0-30.0); Renin Activity 0.797 ng/mL/hr (0.167-5.380)
== END 2016-05-19 12:25 | disposition expired | DRG 846 ==
LOC: OSC 17:57
PROVIDERS: ADMIT Hospitalist; ATTEND Hospitalist
PROC: 3E04305 Introduction of Other Antineoplastic into Central Vein, Percutaneous Approach (ICD-10-PCS; principal; 2016-05-07)
PROC: 30233R1 Transfusion of Nonautologous Platelets into Peripheral Vein, Percutaneous Approach (ICD-10-PCS; 2016-05-10)
PROC: 30233N1 Transfusion of Nonautologous Red Blood Cells into Peripheral Vein, Percutaneous Approach (ICD-10-PCS; 2016-05-11)
PROC: 30233N1 Transfusion of Nonautologous Red Blood Cells into Peripheral Vein, Percutaneous Approach (ICD-10-PCS; 2016-05-14)
PROC: 30233R1 Transfusion of Nonautologous Platelets into Peripheral Vein, Percutaneous Approach (ICD-10-PCS; 2016-05-14)
PROC: 30233R1 Transfusion of Nonautologous Platelets into Peripheral Vein, Percutaneous Approach (ICD-10-PCS; 2016-05-15)
PROC: 30233R1 Transfusion of Nonautologous Platelets into Peripheral Vein, Percutaneous Approach (ICD-10-PCS; 2016-05-17)
DX: Z51.11 Encounter for antineoplastic chemotherapy (principal); I50.33 Acute on chronic diastolic (congestive) heart failure; D61.810 Antineoplastic chemotherapy induced pancytopenia; A41.9 Sepsis, unspecified organism; C34.11 Malignant neoplasm of upper lobe, right bronchus or lung; C78.7 Secondary malignant neoplasm of liver and intrahepatic bile duct; B37.0 Candidal stomatitis; N17.9 Acute kidney failure, unspecified; Z87.891 Personal history of nicotine dependence; E11.65 Type 2 diabetes mellitus with hyperglycemia; Z79.4 Long term (current) use of insulin; Z86.14 Personal history of Methicillin resistant Staphylococcus aureus infection; E78.5 Hyperlipidemia, unspecified; K21.9 Gastro-esophageal reflux disease without esophagitis; D64.9 Anemia, unspecified; K59.00 Constipation, unspecified; Z95.1 Presence of aortocoronary bypass graft; R53.1 Weakness; I48.2 Chronic atrial fibrillation; T45.525A Adverse effect of antithrombotic drugs, initial encounter; Y92.239 Unspecified place in hospital as the place of occurrence of the external cause; M79.81 Nontraumatic hematoma of soft tissue; R33.9 Retention of urine, unspecified; K72.90 Hepatic failure, unspecified without coma; E87.6 Hypokalemia; R57.0 Cardiogenic shock